=== PATIENT | female | born 1970 | race Caucasian/White ===

== ENCOUNTER 2022-12-07 14:43 | Observation (INO) ==
--- NOTE | 2022-12-07 15:01 | ED Triage Note ---
Date of Service December 07, 2022 History of Present Illness This patient was briefly evaluated while in triage. An abbreviated physical exam was performed. This patient is a 52-year-old Female who presents to the ED for evaluation of infection in legs, R>L x one month from [place] ulcers, draining on Keflex reportedly + for pseudomonas sent for admission/IV Abx Physical Exam GENERAL: NAD CARDIOVASCULAR: RRR RESPIRATORY: CTA EXT: RLE in post op shoe, unable to examine legs in triage Initial orders for labs and / or imaging were placed and patient was placed in the waiting area until a bed is available. Please see further documentation for the full ED course.
[2022-12-07 16:44] LABS: Basophils # (auto) 0.06 K/uL (0.00-0.20); Basophils % (auto) 0.7 %; Eosinophils # (auto) 0.22 K/uL (0.00-0.50); Eosinophils % (auto) 2.7 %; Hemoglobin 11.4 g/dl (12.0-16.0); Immature Granulocytes # (auto) 0.03 K/uL (0.01-0.20); Immature Granulocytes % (auto) 0.4 %; Lymphocytes % (auto) 28.9 %; Mean Corpuscular Hemoglobin 26.8 pg (25.0-34.0); Mean Corpuscular Hgb Conc 31.7 g/dL (32.0-36.0); Mean Corpuscular Volume 84.7 fL (80.0-100.0); Monocytes # (auto) 0.84 K/uL (0.11-0.59); Monocytes % (auto) 10.1 %; Neutrophils # (auto) 4.75 K/uL (1.40-6.50); Neutrophils % (auto) 57.2 %; Platelet Count 612 K/uL (130-400); RDW Standard Deviation 45.7 fL (36.4-46.3); Red Blood Count 4.25 M/uL (4.20-5.40)
[2022-12-07 17:00] LABS: Albumin Level 3.1 gm/dl (3.4-5.0); BUN Creatinine Ratio 23.8 (10-20); Bilirubin,Total 0.3 mg/dl (0.2-1.0); Calcium 9.6 mg/dl (8.6-10.3); Creatinine Clr Calc Pharmacy 112.1 ml/min; Est GFR (African American) 117.9 ml/min; Est GFR (Non-African American) 101.7 ml/min; Potassium 3.8 mmol/L (3.5-5.1); Total Protein 7.4 gm/dl (6.0-8.3)
[2022-12-07] MEDS ORDERED: CEFEPIME 2,000 MG in SYRINGE 0 ML IV STA (19:42)
--- NOTE | 2022-12-07 19:49 | Emergency Department Note ---
History of Present Illness General Chief complaint: Infection Stated complaint: INFECTION IN LEGS Time Seen by Provider: 12/07/22 19:23 Source: patient, family, RN notes reviewed, old records reviewed (I have reviewed results with from outpatient ) and other (I did talk to Janna Grissom who is her provider) Mode of arrival: ambulatory Limitations: no limitations History of Present Illness Maximum Pain Intensity: 5 This patient was sent over from her primary care doctor after she has significant infection in her legs. This been going on for about a month she tried outpatient antibiotics with Keflex she apparently had a culture last week which showed a large amount of Pseudomonas and non-MRSA staph. Her doctor feels she needs IV antibiotics and this may try to get in with wound care was hoping that she can get some wound care while she is in the hospital as well. Apparently patient did have arterial and venous duplex done in June in [place] that were unremarkable. I did talk to Janna Grissom on the phone who is her provider. The patient is a heavy smoker. She has prediabetes. She had no fe angelito chills or systemic complaints. Home Medications Medication Instructions Recorded Confirmed Type buprenorphine 8 mg-naloxone 2 mg 1 tab sublingual BID 12/07/22 12/07/22 History sublingual tablet cephalexin 500 mg capsule 500 mg PO QID 12/07/22 12/07/22 History ibuprofen 200 mg tablet (Advil) 400 mg PO Q6H PRN Pain 12/07/22 12/07/22 History multivitamin 1 tab PO DAILY 12/07/22 12/07/22 History venlafaxine 150 mg 150 mg PO BID 12/07/22 12/07/22 History capsule,extended release 24 hr Allergies Allergy/AdvReac Type Severity Reaction Status Date / Time No Known Allergies Allergy Verified 12/07/22 15:00 Past Med/Surg History Social History Smoking Status: Current every day smoker Tobacco Type: Cigarettes Hx Alcohol Use: No Hx Substance Use: No Preferred Language: Sami Communication Ability: Effective Marine Steward Required: No Beliefs That Will Affect Care: None Current Living Situation: Significant Other Feels Safe at Home: Yes Safety Concerns: Feels Safe At This Time Immunizations: Past med historyPrediabetes Social history she lives in the [place] area she is a smoker Review of Systems A total of 10 systems reviewed and were otherwise negative Physical Exam Vital Signs Vital Signs - 24 hr 12/07/22 14:58 12/07/22 17:01 12/07/22 20:40 Temperature 36.8 C Temperature Source Temporal Artery Scan Pulse Rate 111 H Pulse Rate [Right Finger] 96 H 102 H Pulse Rate from SpO2 Sensor Pulse Rhythm [Right Finger] Regular Regular Pulse Strength [Right Finger] Normal Normal Respiratory Rate 18 18 19 Respiratory Effort / Characteristics Non-Labored Non-Labored Spontaneous Respiratory Depth Normal Normal Respiratory Pattern Regular Regular Blood Pressure 106/71 Blood Pressure [Right Arm] 111/75 141/80 H Blood Pressure Mean 82 Blood Pressure Mean [Right Arm] 87 100 Blood Pressure Position [Right Arm] Sitting Pulse Oximetry 91 91 95 Oxygen Delivery Method Room Air Room Air Room Air Sepsis Recent Fever Within 48 Hours No Sepsis New/Unexplained Change in Mental Status No Sepsis Action Taken by Nursing No Action Required 12/07/22 20:42 12/07/22 20:42 12/07/22 20:50 Temperature Temperature Source Pulse Rate 119 H 107 H 102 H Pulse Rate [Right Finger] Pulse Rate from SpO2 Sensor 107 H 102 H Pulse Rhythm [Right Finger] Pulse Strength [Right Finger] Respiratory Rate 29 H 18 Respiratory Effort / Characteristics Respiratory Depth Respiratory Pattern Blood Pressure Blood Pressure [Right Arm] Blood Pressure Mean Blood Pressure Mean [Right Arm] Blood Pressure Position [Right Arm] Pulse Oximetry 95 92 Oxygen Delivery Method Sepsis Recent Fever Within 48 Hours Sepsis New/Unexplained Change in Mental Status Sepsis Action Taken by Nursing 12/07/22 21:00 12/07/22 21:00 12/07/22 21:10 Temperature Temperature Source Pulse Rate 104 H 106 H Pulse Rate [Right Finger] Pulse Rate from SpO2 Sensor 105 H 106 H Pulse Rhythm [Right Finger] Pulse Strength [Right Finger] Respiratory Rate 17 15 Respiratory Effort / Characteristics Respiratory Depth Respiratory Pattern Blood Pressure 114/75 Blood Pressure [Right Arm] Blood Pressure Mean 87 Blood Pressure Mean [Right Arm] Blood Pressure Position [Right Arm] Pulse Oximetry 91 90 Oxygen Delivery Method Sepsis Recent Fever Within 48 Hours Sepsis New/Unexplained Change in Mental Status Sepsis Action Taken by Nursing 12/07/22 21:20 12/07/22 21:30 12/07/22 21:30 Temperature Temperature Source Pulse Rate 104 H 97 H Pulse Rate [Right Finger] Pulse Rate from SpO2 Sensor 104 H 100 H Pulse Rhythm [Right Finger] Pulse Strength [Right Finger] Respiratory Rate 23 16 Respiratory Effort / Characteristics Respiratory Depth Respiratory Pattern Blood Pressure 158/97 H Blood Pressure [Right Arm] Blood Pressure Mean 132 Blood Pressure Mean [Right Arm] Blood Pressure Position [Right Arm] Pulse Oximetry 92 91 Oxygen Delivery Method Sepsis Recent Fever Within 48 Hours Sepsis New/Unexplained Change in Mental Status Sepsis Action Taken by Nursing 12/07/22 20:00 Temperature Temperature Source Pulse Rate Pulse Rate [Right Finger] Pulse Rate from SpO2 Sensor Pulse Rhythm [Right Finger] Pulse Strength [Right Finger] Respiratory Rate Respiratory Effort / Characteristics Respiratory Depth Respiratory Pattern Blood Pressure Blood Pressure [Right Arm] Blood Pressure Mean Blood Pressure Mean [Right Arm] Blood Pressure Position [Right Arm] Pulse Oximetry 90 Oxygen Delivery Method Room Air Sepsis Recent Fever Within 48 Hours Sepsis New/Unexplained Change in Mental Status Sepsis Action Taken by Nursing General: Well developed well nourished middle-age female who appears in no acute distress, breathing comfortably on room air. Normal speech HEENT: Normal cephalic atraumatic. Pupils are equal round and reactive to l ight. Extraocular movements are intact. Oropharynx is pink with moist mucous membranes. No swelling of the mouth lips or tongue. Neck: Supple with a midline trachea. No meningeal signs or stiffness, no JVD or bruits. No Stridor. Chest: Clear to auscultation bilaterally. No wheezes or rhonchi. No increased work of breathing. Heart: Regular rate and rhythm without murmurs or gallops. Abdomen: Soft nontender, nondistended without rebound guarding or rigidity. Extremities: No cyanosis clubbing or edema. No calf tenderness or assymetry. She has bandages on both her legs and I remove them she has swollen ulcerated legs throughout. She does have distal pulses intact as well as motor and s ensation Spine/Back. Non tender to palpation. No CVA tenderness Skin: Good turgor without rashes. Neurologic exam: Cranial nerves two through 12 are intact. Motor and sensation are intact and symmetrical throughout. Course Administered Medications Insulin Aspart (Insulin Aspart Per Unit Charge) 0 units SC ACHS [facility] Stop: 01/07/23 00:34 Last Admin: 12/08/22 00:59 Dose: Not Given Documented By: AN Co-signed By: KRYSTEN Discontinued Medications Cefepime HCl (Cefepime 2,000 Mg/20 Ml Vial) Confirm Administered Dose 2,000 mg .ROUTE .STK-MED ONE Stop: 12/07/22 20:53 Last Admin: 12/07/22 20:57 Dose: Not Given Documented By: YA Cefepime HCl 2,000 mg/ Syringe 20 mls @ 5 mls/min IV NOW STA; Protocol Stop: 12/07/22 19:45 Last Admin: 12/07/22 20:54 Dose: 5 mls/min Documented By: YA Albumin Human (Albumin 25%) 25 gm in 100 mls @ 50 mls/hr IV ONE ONE Stop: 12/07/22 23:34 Last Infusion: 12/08/22 00:49 Dose: 0 mls/hr Documented By: Admin: 12/07/22 22:41 Dose: 50 mls/hr Documented By: BRAYDEN Ioversol (Optiray 320 100ml) 89 ml IV ONCE ONE Stop: 12/07/22 22:15 Last Admin: 12/07/22 22:15 Dose: 89 ml Documented By: JOVITA Medical Decision Making Differential Diagnosis Cellulitis, sepsis, wound infections, electrolyte or metabolic abnormality, vascular compromise Medical Records Attestation: I reviewed the patient's medical records. Home Medications Current Medication List: was personally reviewed by me Laboratory Data Attestation: I reviewed the patient's lab results. 12/07/22 16:03 12/07/22 16:03 Lab Results 12/07/22 12/07/22 12/07/22 Range/Units 16:03 16:03 16:03 WBC 8.30 (4.8-10.8) K/ul RBC 4.25 (4.20-5.40) M/uL Hgb 11.4 L (12.0-16.0) g/dl Hct 36.0 L (37.0-47.0) % MCV 84.7 (80.0-100.0) fL MCH 26.8 (25.0-34.0) pg MCHC 31.7 L (32.0-36.0) g/dL RDW Std Deviation 45.7 (36.4-46.3) fL RDW Coeff of Kirill 15.0 H (11.5-14.5) % Plt Count 612 H (130-400) K/uL MPV 9.0 L (9.4-12.4) fL Immature Gran % (Auto) 0.4 % Neut % (Auto) 57.2 % Lymph % (Auto) 28.9 % Mccormick % (Auto) 10.1 % Eos % (Auto) 2.7 % Baso % (Auto) 0.7 % Neut # (Auto) 4.75 (1.40-6.50) K/uL Lymph # (Auto) 2.40 (1.20-3.40) K/uL Mccormick # (Auto) 0.84 H (0.11-0.59) K/uL Eos # (Auto) 0.22 (0.00-0.50) K/uL Baso # (Auto) 0.06 (0.00-0.20) K/uL Immature Gran # (Auto) 0.03 (0.01-0.20) K/uL Sodium 136 (136-145) mmol/L Potassium 3.8 (3.5-5.1) mmol/L Chloride 102 (98-107) mmol/L Carbon Dioxide 31 (21-32) mmol/L Anion Gap 3 (3-11) BUN 15 (6-23) mg/dl Creatinine 0.63 (0.6-1.2) mg/dl Est Cr Clr Drug Dosing 112.1 ml/min Est GFR ( Amer) 117.9 ml/min Est GFR (Non-Af Amer) 101.7 ml/min BUN/Creatinine Ratio 23.8 H (10-20) Glucose 169 H (70-99(Fasting)) mg/dl Estimat Average Glucose mg/dl Hemoglobin A1c (4.5-5.6) % Lactate 1.7 (0.4-2.0) mmol/L Calcium 9.6 (8.6-10.3) mg/dl Magnesium 2.0 (1.7-2.4) mg/dl Total Bilirubin 0.3 (0.2-1.0) mg/dl Direct Bilirubin 0.0 (0-0.2) mg/dl AST 15 (13-39) U/L ALT 18 (7-52) U/L Alkaline Phosphatase 95 (34-104) U/L Total Protein 7.4 (6.0-8.3) gm/dl Albumin 3.1 L (3.4-5.0) gm/dl Procalcitonin (0-0.5) ng/ml TSH 0.890 (0.300-4.500) uIu/ml 12/07/22 12/07/22 Range/Units 16:03 16:03 WBC (4.8-10.8) K/ul RBC (4.20-5.40) M/uL Hgb (12.0-16.0) g/dl Hct (37.0-47.0) % MCV (80.0-100.0) fL MCH (25.0-34.0) pg MCHC (32.0-36.0) g/dL RDW Std Deviation (36.4-46.3) fL RDW Coeff of Kirill (11.5-14.5) % Plt Count (130-400) K/uL MPV (9.4-12.4) fL Immature Gran % (Auto) % Neut % (Auto) % Lymph % (Auto) % Mccormick % (Auto) % Eos % (Auto) % Baso % (Auto) % Neut # (Auto) (1.40-6.50) K/uL Lymph # (Auto) (1.20-3.40) K/uL Mccormick # (Auto) (0.11-0.59) K/uL Eos # (Auto) (0.00-0.50) K/uL Baso # (Auto) (0.00-0.20) K/uL Immature Gran # (Auto) (0.01-0.20) K/uL Sodium (136-145) mmol/L Potassium (3.5-5.1) mmol/L Chloride (98-107) mmol/L Carbon Dioxide (21-32) mmol/L Anion Gap (3-11) BUN (6-23) mg/dl Creatinine (0.6-1.2) mg/dl Est Cr Clr Drug Dosing ml/min Est GFR ( Amer) ml/min Est GFR (Non-Af Amer) ml/min BUN/Creatinine Ratio (10-20) Glucose (70-99(Fasting)) mg/dl Estimat Average Glucose 143 mg/dl Hemoglobin A1c 6.6 H (4.5-5.6) % Lactate (0.4-2.0) mmol/L Calcium (8.6-10.3) mg/dl Magnesium (1.7-2.4) mg/dl Total Bilirubin (0.2-1.0) mg/dl Direct Bilirubin (0-0.2) mg/dl AST (13-39) U/L ALT (7-52) U/L Alkaline Phosphatase (34-104) U/L Total Protein (6.0-8.3) gm/dl Albumin (3.4-5.0) gm/dl Procalcitonin 0.41 (0-0.5) ng/ml TSH (0.300-4.500) uIu/ml Imaging Data Radiologist's Impression: Foot CT 12/07/22 21:22 Exam(s): CT RIGHT FOOT With Contrast IV Amt: 89 ml optiray 320 EXAM: CT Right Lower Extremity With Intravenous Contrast, Foot CLINICAL HISTORY: Reason for exam: foot swelling. TECHNIQUE: Axial computed tomography images of the right foot with intravenous contrast. Automated exposure control was utilized for the study. A dose lowering technique was utilized adhering to the principles of ALARA. CONTRAST: Patient received 89 ml optiray 320 of IV contrast COMPARISON: No relevant prior studies available. FINDINGS: Bones/joints: Unremarkable. No CT evidence of osteomyelitis. No acute fracture or subluxation. Soft tissues: No skin ulceration along the dorsum of the foot and about the ankle. Circumferential subcutaneous edema and skin thickening. Findings are concerning for cellulitis. No radiopaque foreign body. No subcutaneous air, fluid collection, abscess, or deep intramuscular infection. Other findings: Severe demineralization. IMPRESSION: 1. No skin ulceration along the dorsum of the foot and about the ankle. Circumferential subcutaneous edema and skin thickening. Findings are concerning for cellulitis. 2. No subcutaneous air, fluid collection, abscess, or deep intramuscular infection. 3. No CT evidence of osteomyelitis. Electronically signed by: Kory Adams MD 12/07/22 23:[address] 12/07/22 21:22 Exam(s): CT EXTREMITY LEFT LOWER With Contrast IV Amt: 89 ml optiray 320 EXAM: CT Left Lower Extremity With Intravenous Contrast CLINICAL HISTORY: Reason for exam: recurrent leg infx. TECHNIQUE: Axial computed tomography images of the left lower extremity with intravenous contrast. Automated exposure control was utilized for the study. A dose lowering technique was utilized adhering to the principles of ALARA. CONTRAST: Patient received 89 ml optiray 320 of IV contrast COMPARISON: No relevant prior studies available. FINDINGS: Bones/joints: Unremarkable. No acute fracture. No dislocation. No CT evidence of osteomyelitis. Soft tissues: Circumferential skin ulceration, skin thickening, and subcutaneous edema about the calf, extending to the ankle, consistent with cellulitis. Correlate with physical exam. No deep intramuscular infection. No subcutaneous air. Other findings: No fluid collection or abscess. IMPRESSION: 1. Circumferential skin ulceration, skin thickening, and subcutaneous edema about the calf, extending to the ankle, consistent with cellulitis. Correlate with physical exam. 2. No deep intramuscular infection. 3. No CT evidence of osteomyelitis. 4. No fluid collection or abscess. Electronically signed by: Kory Adams MD 12/07/22 23:[address] 12/07/22 21:22 Exam(s): CT EXTREMITY RIGHT LOWER With Contrast IV Amt: 89 ml optiray 320 EXAM: CT Right Lower Extremity With Intravenous Contrast CLINICAL HISTORY: Reason for exam: recurrent leg infx. TECHNIQUE: Axial computed tomography images of the right lower extremity with intravenous contrast. Automated exposure control was utilized for the study. A dose lowering technique was utilized adhering to the principles of ALARA. CONTRAST: Patient received 89 ml optiray 320 of IV contrast COMPARISON: No relevant prior studies available. FINDINGS: Bones/joints: Unremarkable. No acute fracture. No dislocation. No CT evidence of osteomyelitis. Soft tissues: Circumferential skin ulceration, skin thickening, and subcutaneous edema about the calf, extending to the ankle, consistent with cellulitis. Correlate with physical exam. No deep intramuscular infection. No subcutaneous air. Other findings: No fluid collection or abscess. IMPRESSION: 1. Circumferential skin ulceration, skin thickening, and subcutaneous edema about the calf, extending to the ankle, consistent with cellulitis. Correlate with physical exam. 2. No deep intramuscular infection. 3. No CT evidence of osteomyelitis. 4. No fluid collection or abscess. Electronically signed by: Kory Adams MD 12/07/22 23:01 PM MDM Narrative This patient comes in as described above. I did see her out in triage as we were very busy. The patient was sent over from primary care provider who I talked to on the phone, Janna Grissom. She feels she needs to be admitted for IV antibiotics due to wound culture coming back with large Pseudomonas as well as non-MRSA staph. Additionally patient is not been getting better and they been able to get wound care. She has a normal white count or lactic acid not elevated she does have a mildly elevated blood sugar she is noticing electrolyte or metabolic abnormalities. I did discuss the case in consultation with Daisy or our pharmacist who recommends IV cefepime and either IV Vanco or daptomycin. I ordered the cefepime and will further discuss with the hospitalist. I did discuss case with Dr. White who will be admitting the patient for IV antibiotics and wound care and further evaluation. Continuous cardiac monitoring: An order was placed in EMR for continuous cardiac monitoring: Pulm evaluation patient was noted to be in normal sinus rhythm rate of 90 Impression & Plan Bilateral cellulitis of lower leg, Bilateral leg pain Discharge Plan Visit Data Chief Complaint: Infection Stated Complaint: INFECTION IN LEGS ED Provider: Hernán Silva Discharge Problem: Bilateral cellulitis of lower leg, Bilateral leg pain Discharge Instructions Interventions: ED Discharge Assessment Last Done: 12/08/22 00:24
[2022-12-07] MEDS ORDERED: CEFEPIME 2,000 MG/20 ML VIAL ONE (20:52)
--- NOTE | 2022-12-07 21:31 | History & Physical Report ---
Date of Service December 07, 2022 Assessment & Plan (1) Bilateral cellulitis of lower leg: Plan: Recurrent bilateral LE cellulitis , right greater than the left Concomitant right foot involvement hx chronic leg ulcers with infection Rule out osteomyelitis given recurrent infections Rule out DVT Pseudomonas on recent outpatient CS No sepsis for now Rule out DVT New diagnosis of DM 2, hemoglobin A1c of 6.6 chronic anemia (unknown baseline as per patient) anxiety/mood disorder, stable on regimen chronic pain on Suboxone ongoing tobacco abuse Medical telemetry given tachycardia Baseline EKG CS, Ciprofloxacin Wound care consult MRI both lower extremities and right foot to rule out osteomyelitis LE venous Dopplers rule out DVT Anemia work-up ISS BG goal 1 10-1 40, DM education Nicotine patch as needed DVT prophylaxis. Lovenox subcu Full code Text document was generated using [employer] voice recognition software. It may contain grammatical or spelling errors. Kindly contact undersigned for clarification of any documentation item in que stion. ADDENDUM (12/08): LE venous Dopplers results noted 1. Positive for DVT in the RIGHT popliteal veins. 2. No LEFT lower extremity DVT. IV heparin for now History of Present Illness Chief Complaint: Leg wound infection Primary Care Provider: Dr. Prakash History obtained from patient and records. Medical history significant for chronic leg ulcers, borderline diabetes as per patient, chronic anemia (unknown baseline as per patient), anxiety/mood disorder, chronic pain on Suboxone, ongoing tobacco abuse. Patient admitted at [facility] last year for bilateral LE cellulitis. right greater than the left. Right foot also involved as per patient. Patient signed out AGAINST MEDICAL ADVICE. [facility] ER visit for recurrent June 2022 right foot infection. No stenosis on R LE arterial Dopplers. No DVT on RLE venous Dopplers. Patient given IM ceftriaxone and discharged on unrecalled antibiotic course. Last month, patient had recurrence of RLE swelling followed by foul-smelling wound drainage and subsequent right foot swelling. LLE swelling noted 2 weeks later. Denies chest pain, SOB, or fluid retention. Patient saw new PCP last week after not seeing a family doctor for 2 years. Bilateral redness and open ulcerations with yellow drainage on both lower legs noted right greater than the left, Outpatient wound care referral contemplated. Wound cultures obtained Outpatient Keflex course prescribed without improvement as per patient. Wound CS later resulted in Pseudomonas and MSSA. Patient directed to ER for evaluation. IV cefepime administered at the ER. Medical History as above Surgical History : Back surgeries Family History : Colon cancer, hyperlipidemia Personal/Social history : 1 pack daily, rare EtOH intake, disabled Allergies Allergy/AdvReac Type Severity Reaction Status Date / Time No Known Allergies Allergy Verified 12/07/22 15:00 Home Medications Medication Instructions Recorded Confirmed Type buprenorphine 8 mg-naloxone 2 mg 1 tab sublingual BID 12/07/22 12/07/22 History sublingual tablet cephalexin 500 mg capsule 500 mg PO QID 12/07/22 12/07/22 History ibuprofen 200 mg tablet (Advil) 400 mg PO Q6H PRN Pain 12/07/22 12/07/22 History multivitamin 1 tab PO DAILY 12/07/22 12/07/22 History venlafaxine 150 mg 150 mg PO BID 12/07/22 12/07/22 History capsule,extended release 24 hr Past Med/Surg History Social History Smoking Status: Current every day smoker Tobacco Type: Cigarettes Hx Alcohol Use: No Hx Substance Use: No Preferred Language: Azeri Communication Ability: Effective Wood Hacker Required: No Beliefs That Will Affect Care: None Current Living Situation: Significant Other Feels Safe at Home: Yes Safety Concerns: Feels Safe At This Time Review of Systems Review of Systems: As per HPI, all other systems reviewed and negative Physical Exam Physical Exam: GENERAL: Comfortable, obese, apathetic, looks older than stated age, no respiratory distress SKIN: Pallor , warm HEENT: Pale palpebral conjunctivae, no ptosis, dry buccal mucosa NECK : Supple, short neck, no tenderness CHEST : CTA, no tenderness HEART : Tachycardic, no obvious murmurs ABDOMEN: Some distention, nontender EXTREMITIES : Dressings over both lower extremities, LE tenderness, no other conspicuous deformities noted NEUROLOGIC : Coherent, no facial asymmetry, no other gross focality Results & Data Results & Data Vital Signs (Past 12 Hours) Vital Signs Temp Pulse Pulse Resp BP BP Pulse Ox 12/07/22 20:42 119 H 12/07/22 20:40 102 H 19 141/80 H 95 12/07/22 17:01 96 H 18 111/75 91 12/07/22 14:58 36.8 C 111 H 18 106/71 91 O2 Del Method 12/07/22 20:42 10/23/23 20:40 Room Air 12/07/22 17:01 Room Air 12/07/22 14:58 Room Air Laboratory Results Laboratory Results WBC 8.30 K/ul (4.8-10.8) 12/07/22 16:03 RBC 4.25 M/uL (4.20-5.40) 12/07/22 16:03 Hgb 11.4 g/dl (12.0-16.0) L 12/07/22 16:03 Hct 36.0 % (37.0-47.0) L 12/07/22 16:03 MCV 84.7 fL (80.0-100.0) 12/07/22 16:03 MCH 26.8 pg (25.0-34.0) 12/07/22 16:03 MCHC 31.7 g/dL (32.0-36.0) L 12/07/22 16:03 RDW Std Deviation 45.7 fL (36.4-46.3) 12/07/22 16:03 RDW Coeff of Kirill 15.0 % (11.5-14.5) H 12/07/22 16:03 Plt Count 612 K/uL (130-400) H 12/07/22 16:03 MPV 9.0 fL (9.4-12.4) L 12/07/22 16:03 Immature Gran % (Auto) 0.4 % 12/07/22 16:03 Neut % (Auto) 57.2 % 12/07/22 16:03 Lymph % (Auto) 28.9 % 12/07/22 16:03 Mellette % (Auto) 10.1 % 12/07/22 16:03 Eos % (Auto) 2.7 % 12/07/22 16:03 Baso % (Auto) 0.7 % 12/07/22 16:03 Neut # (Auto) 4.75 K/uL (1.40-6.50) 12/07/22 16:03 Lymph # (Auto) 2.40 K/uL (1.20-3.40) 12/07/22 16:03 Mellette # (Auto) 0.84 K/uL (0.11-0.59) H 12/07/22 16:03 Eos # (Auto) 0.22 K/uL (0.00-0.50) 12/07/22 16:03 Baso # (Auto) 0.06 K/uL (0.00-0.20) 12/07/22 16:03 Immature Gran # (Auto) 0.03 K/uL (0.01-0.20) 12/07/22 16:03 Sodium 136 mmol/L (136-145) 12/07/22 16:03 Potassium 3.8 mmol/L (3.5-5.1) 12/07/22 16:03 Chloride 102 mmol/L (98-107) 12/07/22 16:03 Carbon Dioxide 31 mmol/L (21-32) 12/07/22 16:03 Anion Gap 3 (3-11) 12/07/22 16:03 BUN 15 mg/dl (6-23) 12/07/22 16:03 Creatinine 0.63 mg/dl (0.6-1.2) 12/07/22 16:03 Est Cr Clr Drug Dosing 112.1 ml/min 12/07/22 16:03 Est GFR ( Amer) 117.9 ml/min 12/07/22 16:03 Est GFR (Non-Af Amer) 101.7 ml/min 12/07/22 16:03 BUN/Creatinine Ratio 23.8 (10-20) H 12/07/22 16:03 Glucose 169 mg/dl (70-99(Fasting)) H 12/07/22 16:03 Lactate 1.7 mmol/L (0.4-2.0) 12/07/22 16:03 Calcium 9.6 mg/dl (8.6-10.3) 12/07/22 16:03 Magnesium 2.0 mg/dl (1.7-2.4) 12/07/22 16:03 Total Bilirubin 0.3 mg/dl (0.2-1.0) 12/07/22 16:03 Direct Bilirubin 0.0 mg/dl (0-0.2) 12/07/22 16:03 AST 15 U/L (13-39) 12/07/22 16:03 ALT 18 U/L (7-52) 12/07/22 16:03 Alkaline Phosphatase 95 U/L (34-104) 12/07/22 16:03 Total Protein 7.4 gm/dl (6.0-8.3) 12/07/22 16:03 Albumin 3.1 gm/dl (3.4-5.0) L 12/07/22 16:03 Procalcitonin 0.41 ng/ml (0-0.5) 12/07/22 16:03 Diagnostic Findings Chest x-ray as per my interpretation cardiomegaly
[2022-12-07] MEDS ORDERED: PROMETHAZINE 12.5 MG/50.5 ML BAG IV PRN (21:35)
[2022-12-07] MEDS ORDERED: ACETAMINOPHEN 325 MG TAB PO PRN (21:35)
[2022-12-07] MEDS ORDERED: hydrOXYzine HCl 10 MG TAB PO PRN (21:35)
[2022-12-07] MEDS ORDERED: ALBUMIN 25% 25 GM/100 ML VIAL IV ONE (21:35)
[2022-12-07 22:01] LABS: Thyroid Stimulating Hormone 0.89 uIu/ml (0.300-4.500)
[2022-12-07] MEDS ORDERED: OPTIRAY 320 100ml IV ONE (22:14)
[2022-12-07 22:31] LABS: Estimated Average Glucose 143 mg/dl; Hemoglobin A1C 6.6 % (4.5-5.6)
--- NOTE | 2022-12-07 23:02 | CT Scan Report ---
Exam(s): CT EXTREMITY RIGHT LOWER With Contrast IV Amt: 89 ml optiray 320 EXAM: CT Right Lower Extremity With Intravenous Contrast CLINICAL HISTORY: Reason for exam: recurrent leg infx. TECHNIQUE: Axial computed tomography images of the right lower extremity with intravenous contrast. Automated exposure control was utilized for the study. A dose lowering technique was utilized adhering to the principles of ALARA. CONTRAST: Patient received 89 ml optiray 320 of IV contrast COMPARISON: No relevant prior studies available. FINDINGS: Bones/joints: Unremarkable. No acute fracture. No dislocation. No CT evidence of osteomyelitis. Soft tissues: Circumferential skin ulceration, skin thickening, and subcutaneous edema about the calf, extending to the ankle, consistent with cellulitis. Correlate with physical exam. No deep intramuscular infection. No subcutaneous air. Other findings: No fluid collection or abscess. IMPRESSION: 1. Circumferential skin ulceration, skin thickening, and subcutaneous edema about the calf, extending to the ankle, consistent with cellulitis. Correlate with physical exam. 2. No deep intramuscular infection. 3. No CT evidence of osteomyelitis. 4. No fluid collection or abscess. Electronically signed by: Kory Adams MD 12/07/22 23:01 PM
--- NOTE | 2022-12-07 23:02 | CT Scan Report ---
Exam(s): CT EXTREMITY LEFT LOWER With Contrast IV Amt: 89 ml optiray 320 EXAM: CT Left Lower Extremity With Intravenous Contrast CLINICAL HISTORY: Reason for exam: recurrent leg infx. TECHNIQUE: Axial computed tomography images of the left lower extremity with intravenous contrast. Automated exposure control was utilized for the study. A dose lowering technique was utilized adhering to the principles of ALARA. CONTRAST: Patient received 89 ml optiray 320 of IV contrast COMPARISON: No relevant prior studies available. FINDINGS: Bones/joints: Unremarkable. No acute fracture. No dislocation. No CT evidence of osteomyelitis. Soft tissues: Circumferential skin ulceration, skin thickening, and subcutaneous edema about the calf, extending to the ankle, consistent with cellulitis. Correlate with physical exam. No deep intramuscular infection. No subcutaneous air. Other findings: No fluid collection or abscess. IMPRESSION: 1. Circumferential skin ulceration, skin thickening, and subcutaneous edema about the calf, extending to the ankle, consistent with cellulitis. Correlate with physical exam. 2. No deep intramuscular infection. 3. No CT evidence of osteomyelitis. 4. No fluid collection or abscess. Electronically signed by: Kory Adams MD 12/07/22 23:01 PM
--- NOTE | 2022-12-07 23:04 | CT Scan Report ---
Exam(s): CT RIGHT FOOT With Contrast IV Amt: 89 ml optiray 320 EXAM: CT Right Lower Extremity With Intravenous Contrast, Foot CLINICAL HISTORY: Reason for exam: foot swelling. TECHNIQUE: Axial computed tomography images of the right foot with intravenous contrast. Automated exposure control was utilized for the study. A dose lowering technique was utilized adhering to the principles of ALARA. CONTRAST: Patient received 89 ml optiray 320 of IV contrast COMPARISON: No relevant prior studies available. FINDINGS: Bones/joints: Unremarkable. No CT evidence of osteomyelitis. No acute fracture or subluxation. Soft tissues: No skin ulceration along the dorsum of the foot and about the ankle. Circumferential subcutaneous edema and skin thickening. Findings are concerning for cellulitis. No radiopaque foreign body. No subcutaneous air, fluid collection, abscess, or deep intramuscular infection. Other findings: Severe demineralization. IMPRESSION: 1. No skin ulceration along the dorsum of the foot and about the ankle. Circumferential subcutaneous edema and skin thickening. Findings are concerning for cellulitis. 2. No subcutaneous air, fluid collection, abscess, or deep intramuscular infection. 3. No CT evidence of osteomyelitis. Electronically signed by: Kory Adams MD 12/07/22 23:04 PM
--- NOTE | 2022-12-08 00:20 | Ultrasound Report ---
Exam(s): US VENOUS BILATERAL LOWER EXTREMITIES EXAM: US Duplex Bilateral Lower Extremities Veins CLINICAL HISTORY: Reason for exam: leg swelling. TECHNIQUE: Real-time duplex ultrasound scan of the bilateral lower extremity veins integrating B-mode two-dimensional vascular structure, Doppler spectral analysis, color flow Doppler imaging and compression. COMPARISON: No relevant prior studies available. FINDINGS: Limitations: Evaluation of the calf veins are limited due to bandages. Right deep veins: Positive for DVT in the RIGHT popliteal veins. Right superficial veins: Unremarkable. No thrombus in the visualized right great saphenous vein. Left deep veins: Unremarkable. No LEFT lower extremity DVT. Left superficial veins: Unremarkable. No thrombus in the visualized left great saphenous vein. Soft tissues: No acute findings. No popliteal cyst. Lymph nodes: RIGHT inguinal lymph node measures 5.0 x 4.5 cm. IMPRESSION: 1. Positive for DVT in the RIGHT popliteal veins. 2. No LEFT lower extremity DVT. Electronically signed by: Kory Adams MD 12/08/22 00:19 AM
[2022-12-08] MEDS ORDERED: DEXTROSE 50% 50 ML SYRINGE IV PRN (00:30)
[2022-12-08] MEDS ORDERED: GLUCOSE 10 TAB/TUBE PO PRN (00:30)
[2022-12-08] MEDS ORDERED: GLUCAGON FOR INJ 1 MG VIAL SQ PRN (00:30)
[2022-12-08] MEDS ORDERED: GLUCOSE 40% GEL 15 GM TUBE PO PRN (00:30)
[2022-12-08] MEDS ORDERED: CARBOHYDRATES FOR HYPOGLYCEMIA PO PRN (00:30)
[2022-12-08] MEDS: INSULIN ASPART PER UNIT CHARGE SC SCH ×5 (00:59→21:31)
[2022-12-08 05:11] LABS: Appearance Urine Clear (Clear); Bilirubin Urine Negative (Negative); Blood Urine Negative (Negative); Color Urine Yellow; Glucose Urine UA Negative (Negative); Ketones Urine Negative (Negative); Leukocyte Esterase Urine Negative (Negative); Nitrite Urine Negative (Negative); Protein Urine Negative (Negative); Specific Gravity Urine 1.037 (1.000-1.030); Urobilinogen Urine Negative (Negative); pH Urine 5.5 (4.5-7.5)
[2022-12-08] MEDS ORDERED: Heparin IV Adult Wt-Based Low-Dose *NO* Bolus Protocol IV STA (05:15)
[2022-12-08 05:30] LABS: Amphetamines+Metham, Urine Neg (Neg); Barbiturates, Urine Neg (Neg); Benzodiazepine, Urine Neg (Neg); Cocaine, Urine Neg (Neg); MDMA (Ecstacy), Urine Neg (Neg); Marijuana, Urine Neg (Neg); Methadone, Urine Neg (Neg); Opiate, Urine Neg (Neg); Phencyclidine, Urine Neg (Neg)
[2022-12-08] MEDS: CEFEPIME 2,000 MG in SYRINGE 0 ML IV SCH ×3 (05:44→21:41)
[2022-12-08] MEDS: HEPARIN SODIUM/DEXTROSE 25,000 UNITS/500 ML BAG IV SCH (05:44)
[2022-12-08 05:56] LABS: Basophils # (auto) 0.06 K/uL (0.00-0.20); Basophils % (auto) 0.9 %; Eosinophils # (auto) 0.22 K/uL (0.00-0.50); Eosinophils % (auto) 3.2 %; Hematocrit (blood only) 30.8 % (37.0-47.0); Hemoglobin 9.7 g/dl (12.0-16.0); Immature Granulocytes # (auto) 0.03 K/uL (0.01-0.20); Immature Granulocytes % (auto) 0.4 %; Lymphocytes # (auto) 3.04 K/uL (1.20-3.40); Lymphocytes % (auto) 44.5 %; Mean Corpuscular Hemoglobin 27.2 pg (25.0-34.0); Mean Corpuscular Hgb Conc 31.5 g/dL (32.0-36.0); Mean Corpuscular Volume 86.5 fL (80.0-100.0); Mean Platelet Volume 8.9 fL (9.4-12.4); Monocytes # (auto) 0.84 K/uL (0.11-0.59); Monocytes % (auto) 12.3 %; Neutrophils # (auto) 2.64 K/uL (1.40-6.50); Neutrophils % (auto) 38.7 %; Platelet Count 531 K/uL (130-400); RDW Coefficient of Variation 14.8 % (11.5-14.5); RDW Standard Deviation 45.8 fL (36.4-46.3); Red Blood Count 3.56 M/uL (4.20-5.40); White Blood Count 6.83 K/ul (4.8-10.8)
[2022-12-08 06:13] LABS: Calcium 9.2 mg/dl (8.6-10.3); Creatinine Clr Calc Pharmacy 121.8 ml/min; Est GFR (African American) 121.1 ml/min; Est GFR (Non-African American) 104.5 ml/min
[2022-12-08 06:22] LABS: Partial Thromboplastin Ratio 1.1; Partial Thromboplastin Time 30.8 Seconds (21.0-31.0)
--- NOTE | 2022-12-08 07:46 | XRay Report ---
XR chest 1V portable CLINICAL HISTORY: con leg swelling TECHNIQUE: Single frontal radiograph of the chest was obtained. Comparison: None available at the time of this dictation. FINDINGS: No lines and tubes are seen. Cardiomegaly is noted. The lungs are clear. No evidence of pleural effus ion or pneumothorax. IMPRESSION: No acute chest disease. Cardiomegaly is noted. ACT 112: Negative or not required by law. Electronically signed by: Luis Donohue M.D. 12/08/2022 7:45 AM
[2022-12-08] MEDS ORDERED: ALBUMIN 25% 25 GM/100 ML VIAL IV SCH (08:00)
[2022-12-08] MEDS: VENLAFAXINE HCL XR 150 MG CAPXR PO SCH ×2 (08:28→21:41)
[2022-12-08] MEDS: CIPROFLOXACIN / D5W 400 MG/200 ML BAG IV SCH ×2 (08:28→21:50)
[2022-12-08] MEDS: MULTIVITAMIN TAB PO SCH (08:28)
[2022-12-08] MEDS: BUPRENORPHINE/NALOXONE 8/2 MG TAB SL SCH ×2 (08:28→21:40)
[2022-12-08] MEDS ORDERED: LANTUS PER UNIT CHARGE SQ SCH (09:00)
[2022-12-08] MEDS ORDERED: Nursing to Pharmacy Communication SCH (09:00)
[2022-12-08] MEDS: ALBUMIN 25% 25 GM/100 ML VIAL IV SCH ×2 (10:14→18:07)
[2022-12-08 12:34] LABS: Partial Thromboplastin Ratio 1.1; Partial Thromboplastin Time 29.9 Seconds (21.0-31.0)
[2022-12-08] MEDS ORDERED: HEPARIN SOD (PORCINE) 1000 UNIT/ML IV ONE (13:29)
--- NOTE | 2022-12-08 17:25 | Hospitalist Progress Note ---
Date of Service December 08, 2022 Assessment & Plan (1) Bilateral cellulitis of lower leg: Plan: Recurrent bilateral LE cellulitis , right greater than the left Concomitant right foot involvement hx chronic leg ulcers with infection for a long time Never been to wound clinic and saw PCP last week and was started on oral antibiotic with Keflex and did not show any improvement Condition has been getting worse Rule out osteomyelitis given recurrent infections-MRI both lower extremities and right foot to rule out osteomyelitis Pseudomonas on recent outpatient CS CS, Ciprofloxacin Wound care consult No sepsis for now Started on intravenous cefepime Wound care consulted DVT right popliteal veins Started on intravenous heparin Will need anticoagulation for at least 3 months New diagnosis of DM 2, hemoglobin A1c of 6.6 ISS BG goal 1 10-1 40, DM education Chronic anemia (unknown baseline as per patient) Anemia work-up Anxiety/mood disorder, stable on regimen Chronic pain on Suboxone Ongoing tobacco abuse Nicotine patch as needed DVT prophylaxis. Lovenox subcu Full code Admission and Anticipated Discharge Date Admission Date: December 07, 2022 Subjective 12/08/2022 The patient was seen and examined in emergency room She has been complaining of pain and drainage from the leg wounds associated with leg pain Noted to have DVT involving the popliteal veins She has been feeling better since admission Review of Systems Review of Systems: All systems reviewed and are unremarkable except as noted below Physical Exam Physical Exam: Lying in bed comfortably Constitutional: well developed, well nourished, + ill appearing and + obese Eyes: PERRL, conjunctivae normal, anicteric sclerae ENMT: external ear and nose normal, oropharynx normal Neck: trachea midline, no thyromegaly Respiratory: no respiratory distress Auscultation: lungs clear to auscultation bilaterally Cardiovascular: Rate/Rhythm: regular rate and regular rhythm; not tachycardic Heart Sounds: normal S1 and normal S2; no murmur Extremities: + edema (Both the legs are bandaged) Gastrointestinal (Abdomen): Inspection/Auscultation: normal bowel sounds; abdomen not distended Percussion/Palpation: abdomen soft; abdomen nontender Musculoskeletal: Bilateral leg pain Neurologic: normal touch/pain/proprioception and moves all extremities; no focal motor deficits Lymphatic: no cervical or axillary lymphadenopathy Results & Data Results & Data Vital Signs (Past 12 Hours) Vital Signs Temp Pulse Pulse Resp BP Pulse Ox O2 Del Method 12/08/22 17:01 Nasal Cannula 12/08/22 16:03 84 12/08/22 16:02 36.5 C 82 16 100/64 95 Nasal Cannula 12/08/22 15:11 83 12/08/22 13:57 80 15 101/60 92 Nasal Cannula 12/08/22 11:21 81 16 119/71 95 Nasal Cannula 12/08/22 07:03 88 16 115/83 95 Room Air O2 Flow Rate 12/08/22 17:01 2 12/08/22 16:03 12/08/22 16:02 2 12/08/22 15:11 12/08/22 13:57 2 12/08/22 11:21 2 12/08/22 07:03 Laboratory Results Short CBC 12/08/22 Range/Units 05:23 WBC 6.83 (4.8-10.8) K/ul Hgb 9.7 L (12.0-16.0) g/dl Hct 30.8 L (37.0-47.0) % Plt Count 531 H (130-400) K/uL BMP 12/08/22 05:23 Sodium 138 Potassium 4.0 Chloride 104 Carbon Dioxide 30 BUN 11 Creatinine 0.58 L Glucose 90 Calcium 9.2 Urine 12/08/22 Range/Units 04:21 Urine Color Yellow Urine Appearance Clear (Clear) Urine pH 5.5 (4.5-7.5) Ur Specific [place] 1.037 H (1.000-1.030) Urine Protein Negative (Negative) Urine Glucose (UA) Negative (Negative) Medications Administered Current Inpatient Medications Acetaminophen (Acetaminophen 325 Mg Tab) 650 mg PO QID PRN PRN Reason: pain/fever Stop: 01/06/23 21:34 Buprenorphine/Naloxone (Buprenorphine/Naloxone 8/2 Mg Tab) 1 tab SL BID [facility] Stop: 01/07/23 08:59 Last Admin: 12/08/22 08:28 Dose: 1 tab Dextrose (Dextrose 50% 50 Ml Syringe) 25 - 50 ml IV UD PRN; Protocol PRN Reason: Hypoglycemia Protocol Stop: 01/07/23 00:29 Glucagon (Glucagon For Inj 1 Mg Vial) 1 mg SQ UD PRN; Protocol PRN Reason: Hypoglycemia Protocol Stop: 01/07/23 00:29 Glucose (Glucose 10 Tab/Tube) 4 - 8 tab PO UD PRN; Protocol PRN Reason: Hypoglycemia Treatment Stop: 01/07/23 00:29 Glucose (Glucose 40% Gel 15 Gm Tube) 15 - 30 gm PO UD PRN; Protocol PRN Reason: Hypoglycemia Protocol Stop: 01/07/23 00:29 Hydroxyzine HCl (Hydroxyzine Hcl 10 Mg Tab) 10 mg PO QID PRN PRN Reason: Anxiety Stop: 01/06/23 21:34 Promethazine HCl (Phenergan) 12.5 mg in 50.5 mls @ 202 mls/hr IV Q6H PRN PRN Reason: Nausea And Vomiting Stop: 01/06/23 21:34 Ciprofloxacin (Cipro / D5w) 400 mg in 200 mls @ 100 mls/hr IV Q12H [facility]; Protocol Stop: 12/15/22 08:59 Last Infusion: 12/08/22 09:59 Dose: Infused Cefepime HCl 2,000 mg/ Syringe 20 mls @ 5 mls/min IV Q8H [facility]; Protocol Stop: 12/15/22 05:59 Last Admin: 12/08/22 15:09 Dose: 5 mls/min Heparin Sodium/Dextrose (Heparin Sodium/Dextrose) 25,000 units in 500 mls @ 21 mls/hr IV .[id number] [facility]; Protocol Stop: 01/07/23 05:29 Last Titration: 12/08/22 13:23 Dose: 1,050 units/hr, 21 mls/hr Albumin Human (Albumin 25%) 25 gm in 100 mls @ 50 mls/hr IV Q8H [facility] Stop: 12/09/22 08:29 Last Infusion: 12/08/22 13:23 Dose: Infused Insulin Aspart (Insulin Aspart Per Unit Charge) 0 units SC ACHS [facility] Stop: 01/07/23 00:34 Last Admin: 12/08/22 13:39 Dose: Not Given Miscellaneous (Carbohydrates For Hypoglycemia ) 15 - 30 gm PO UD PRN PRN Reason: Hypoglycemia Protocol Stop: 01/07/23 00:29 Multivitamins (Multivitamin Tab) 1 tab PO DAILY [facility] Stop: 01/07/23 08:59 Last Admin: 12/08/22 08:28 Dose: 1 tab Venlafaxine HCl (Venlafaxine Hcl Xr 150 Mg Capxr) 150 mg PO BID [facility] Stop: 01/07/23 08:59 Last Admin: 12/08/22 08:28 Dose: 150 mg
[2022-12-08 20:54] LABS: Partial Thromboplastin Ratio 1.3; Partial Thromboplastin Time 36.5 Seconds (21.0-31.0)
[2022-12-09] MEDS: ALBUMIN 25% 25 GM/100 ML VIAL IV SCH (02:24)
[2022-12-09 04:13] LABS: Partial Thromboplastin Ratio 1.2; Partial Thromboplastin Time 34.7 Seconds (21.0-31.0)
[2022-12-09] MEDS: HEPARIN SODIUM/DEXTROSE 25,000 UNITS/500 ML BAG IV SCH (04:48)
[2022-12-09] MEDS: CEFEPIME 2,000 MG in SYRINGE 0 ML IV SCH ×3 (05:26→21:56)
[2022-12-09] MEDS ORDERED: HEPARIN SOD (PORCINE) 1000 UNIT/ML IV ONE ×2 (05:45→21:45)
[2022-12-09 09:24] LABS: Basophils # (auto) 0.06 K/uL (0.00-0.20); Basophils % (auto) 0.7 %; Eosinophils # (auto) 0.16 K/uL (0.00-0.50); Eosinophils % (auto) 1.9 %; Hematocrit (blood only) 32.1 % (37.0-47.0); Immature Granulocytes # (auto) 0.03 K/uL (0.01-0.20); Immature Granulocytes % (auto) 0.4 %; Lymphocytes # (auto) 2.81 K/uL (1.20-3.40); Mean Corpuscular Hemoglobin 26.9 pg (25.0-34.0); Mean Corpuscular Hgb Conc 31.2 g/dL (32.0-36.0); Mean Corpuscular Volume 86.3 fL (80.0-100.0); Mean Platelet Volume 8.8 fL (9.4-12.4); Monocytes # (auto) 0.73 K/uL (0.11-0.59); Monocytes % (auto) 8.8 %; Neutrophils # (auto) 4.48 K/uL (1.40-6.50); Neutrophils % (auto) 54.2 %; Platelet Count 527 K/uL (130-400); RDW Standard Deviation 46.8 fL (36.4-46.3); Red Blood Count 3.72 M/uL (4.20-5.40); White Blood Count 8.27 K/ul (4.8-10.8)
[2022-12-09] MEDS: BUPRENORPHINE/NALOXONE 8/2 MG TAB SL SCH ×2 (09:26→21:56)
[2022-12-09] MEDS: INSULIN ASPART PER UNIT CHARGE SC SCH ×4 (09:26→20:37)
[2022-12-09] MEDS: VENLAFAXINE HCL XR 150 MG CAPXR PO SCH ×2 (09:27→21:56)
[2022-12-09] MEDS: CIPROFLOXACIN / D5W 400 MG/200 ML BAG IV SCH (09:27)
[2022-12-09] MEDS: MULTIVITAMIN TAB PO SCH (09:27)
[2022-12-09 09:40] LABS: BUN Creatinine Ratio 16.4 (10-20); Calcium 9.6 mg/dl (8.6-10.3); Creatinine Clr Calc Pharmacy 105.4 ml/min; Est GFR (African American) 115.5 ml/min; Est GFR (Non-African American) 99.7 ml/min; Potassium 3.9 mmol/L (3.5-5.1)
[2022-12-09 13:48] LABS: Partial Thromboplastin Ratio 1.3; Partial Thromboplastin Time 36.5 Seconds (21.0-31.0)
--- NOTE | 2022-12-09 15:15 | Hospitalist Progress Note ---
Date of Service December 09, 2022 Assessment & Plan (1) Bilateral cellulitis of lower leg: Plan: Recurrent bilateral LE cellulitis , right greater than the left Concomitant right foot involvement hx chronic leg ulcers with infection for a long time Never been to wound clinic and saw PCP last week and was started on oral antibiotic with Keflex and did not show any improvement Condition has been getting worse-chronic skin changes of both the legs with 1+ edema bilaterally and ulcerations; please see the picture for details review Rule out osteomyelitis given recurrent infections-MRI both lower extremities and right foot to rule out osteomyelitis Pseudomonas on recent outpatient CS CS, Ciprofloxacin Wound care consult-appreciate input and recommendation No sepsis for now Started on intravenous cefepime DVT right popliteal veins Started on intravenous heparin Will need anticoagulation for at least 3 months We will continue with heparin for now-we will put her on Eliquis on discharge New diagnosis of DM 2, hemoglobin A1c of 6.6 ISS BG goal 1 10-1 40, DM education Chronic anemia (unknown baseline as per patient) Anemia work-up Anxiety/mood disorder, stable on regimen Chronic pain on Suboxone Ongoing tobacco abuse Nicotine patch as needed DVT prophylaxis. Lovenox subcu Full code Admission and Anticipated Discharge Date Admission Date: December 07, 2022 Subjective 12/08/2022 The patient was seen and examined in emergency room She has been complaining of pain and drainage from the leg wounds associated with leg pain Noted to have DVT involving the popliteal veins She has been feeling better since admission 12/09/2022 The patient was seen and examined in medical telemetry unit She has been feeling better No fever and or chills, and the leg pain has improved Review of Systems Review of Systems: All systems reviewed and are unremarkable except as noted below Physical Exam Physical Exam: Lying in bed comfortably Constitutional: well developed, well nourished, + ill appearing and + obese Eyes: PERRL, conjunctivae normal, anicteric sclerae ENMT: external ear and nose normal, oropharynx normal Neck: trachea midline, no thyromegaly Respiratory: no respiratory distress Auscultation: lungs clear to auscultation bilaterally Cardiovascular: Rate/Rhythm: regular rate and regular rhythm; not tachycardic Heart Sounds: normal S1 and normal S2; no murmur Extremities: + edema (Both the legs are bandaged) Gastrointestinal (Abdomen): Inspection/Auscultation: normal bowel sounds; abdomen not distended Percussion/Palpation: abdomen soft; abdomen nontender Musculoskeletal: No acute arthritis involving any of the joint Skin: Chronic edema with chronic skin changes involving both legs and feet with ulcerations at places Neurologic: normal touch/pain/proprioception and moves all extremities; no focal motor deficits Psychiatric: A+Ox3, euthymic affect Lymphatic: no cervical or axillary lymphadenopathy Results & Data Results & Data Vital Signs (Past 12 Hours) Vital Signs Temp Pulse Resp BP Pulse Ox O2 Del Method O2 Flow Rate 12/09/22 08:00 Room Air 12/09/22 11:04 37 C 81 20 108/65 91 Room Air 12/09/22 07:35 37.1 C 83 16 111/67 93 Nasal Cannula 1 12/09/22 03:57 36.9 C 84 18 120/74 92 Nasal Cannula 1 Laboratory Results Short CBC 12/09/22 Range/Units 09:00 WBC 8.27 (4.8-10.8) K/ul Hgb 10.0 L (12.0-16.0) g/dl Hct 32.1 L (37.0-47.0) % Plt Count 527 H (130-400) K/uL BMP 12/09/22 09:00 Sodium 140 Potassium 3.9 Chloride 104 Carbon Dioxide 29 BUN 11 Creatinine 0.67 Glucose 106 H Calcium 9.6 Medications Administered Current Inpatient Medications Acetaminophen (Acetaminophen 325 Mg Tab) 650 mg PO QID PRN PRN Reason: pain/fever Stop: 01/06/23 21:34 Buprenorphine/Naloxone (Buprenorphine/Naloxone 8/2 Mg Tab) 1 tab SL BID [facility] Stop: 01/07/23 08:59 Last Admin: 12/09/22 09:26 Dose: 1 tab Dextrose (Dextrose 50% 50 Ml Syringe) 25 - 50 ml IV UD PRN; Protocol PRN Reason: Hypoglycemia Protocol Stop: 01/07/23 00:29 Glucagon (Glucagon For Inj 1 Mg Vial) 1 mg SQ UD PRN; Protocol PRN Reason: Hypoglycemia Protocol Stop: 01/07/23 00:29 Glucose (Glucose 10 Tab/Tube) 4 - 8 tab PO UD PRN; Protocol PRN Reason: Hypoglycemia Treatment Stop: 01/07/23 00:29 Glucose (Glucose 40% Gel 15 Gm Tube) 15 - 30 gm PO UD PRN; Protocol PRN Reason: Hypoglycemia Protocol Stop: 01/07/23 00:29 Hydroxyzine HCl (Hydroxyzine Hcl 10 Mg Tab) 10 mg PO QID PRN PRN Reason: Anxiety Stop: 01/06/23 21:34 Promethazine HCl (Phenergan) 12.5 mg in 50.5 mls @ 202 mls/hr IV Q6H PRN PRN Reason: Nausea And Vomiting Stop: 01/06/23 21:34 Ciprofloxacin (Cipro / D5w) 400 mg in 200 mls @ 100 mls/hr IV Q12H [facility]; Protocol Stop: 12/15/22 08:59 Last Infusion: 12/09/22 12:01 Dose: Infused Cefepime HCl 2,000 mg/ Syringe 20 mls @ 5 mls/min IV Q8H [facility]; Protocol Stop: 12/15/22 05:59 Last Admin: 12/09/22 14:00 Dose: 5 mls/min Heparin Sodium/Dextrose (Heparin Sodium/Dextrose) 25,000 units in 500 mls @ 26 mls/hr IV .[id number] [facility]; Protocol Stop: 01/07/23 05:29 Last Titration: 12/09/22 14:04 Dose: 1,300 units/hr, 26 mls/hr Insulin Aspart (Insulin Aspart Per Unit Charge) 0 units SC ACHS [facility] Stop: 01/07/23 00:34 Last Admin: 12/09/22 13:44 Dose: Not Given Miscellaneous (Carbohydrates For Hypoglycemia ) 15 - 30 gm PO UD PRN PRN Reason: Hypoglycemia Protocol Stop: 01/07/23 00:29 Multivitamins (Multivitamin Tab) 1 tab PO DAILY [facility] Stop: 01/07/23 08:59 Last Admin: 12/09/22 09:27 Dose: 1 tab Venlafaxine HCl (Venlafaxine Hcl Xr 150 Mg Capxr) 150 mg PO BID [facility] Stop: 01/07/23 08:59 Last Admin: 12/09/22 09:27 Dose: 150 mg
[2022-12-09 20:47] LABS: Partial Thromboplastin Ratio 1.3; Partial Thromboplastin Time 35.5 Seconds (21.0-31.0)
[2022-12-10] MEDS: HEPARIN SODIUM/DEXTROSE 25,000 UNITS/500 ML BAG IV SCH ×2 (01:30→19:23)
[2022-12-10 04:50] LABS: Basophils # (auto) 0.05 K/uL (0.00-0.20); Basophils % (auto) 0.6 %; Eosinophils # (auto) 0.26 K/uL (0.00-0.50); Hematocrit (blood only) 32.2 % (37.0-47.0); Immature Granulocytes # (auto) 0.04 K/uL (0.01-0.20); Immature Granulocytes % (auto) 0.5 %; Lymphocytes # (auto) 3.72 K/uL (1.20-3.40); Lymphocytes % (auto) 42.4 %; Mean Corpuscular Hemoglobin 26.8 pg (25.0-34.0); Mean Corpuscular Hgb Conc 31.1 g/dL (32.0-36.0); Mean Corpuscular Volume 86.3 fL (80.0-100.0); Mean Platelet Volume 8.9 fL (9.4-12.4); Monocytes # (auto) 0.95 K/uL (0.11-0.59); Monocytes % (auto) 10.8 %; Neutrophils # (auto) 3.75 K/uL (1.40-6.50); Neutrophils % (auto) 42.7 %; Platelet Count 521 K/uL (130-400); RDW Standard Deviation 46.5 fL (36.4-46.3); Red Blood Count 3.73 M/uL (4.20-5.40); White Blood Count 8.77 K/ul (4.8-10.8)
[2022-12-10 05:06] LABS: BUN Creatinine Ratio 23.9 (10-20); Calcium 9.3 mg/dl (8.6-10.3); Creatinine Clr Calc Pharmacy 105.4 ml/min; Est GFR (African American) 115.5 ml/min; Est GFR (Non-African American) 99.7 ml/min; Potassium 3.7 mmol/L (3.5-5.1)
[2022-12-10 05:44] LABS: Partial Thromboplastin Ratio 1.4
[2022-12-10] MEDS: CEFEPIME 2,000 MG in SYRINGE 0 ML IV SCH ×4 (05:49→21:28)
[2022-12-10 06:31] LABS: Partial Thromboplastin Time 40.3 Seconds (21.0-31.0)
[2022-12-10] MEDS: MULTIVITAMIN TAB PO SCH (09:42)
[2022-12-10] MEDS: VENLAFAXINE HCL XR 150 MG CAPXR PO SCH ×2 (09:43→21:23)
[2022-12-10] MEDS: INSULIN ASPART PER UNIT CHARGE SC SCH ×4 (09:45→21:22)
[2022-12-10] MEDS: BUPRENORPHINE/NALOXONE 8/2 MG TAB SL SCH ×2 (09:45→21:23)
--- NOTE | 2022-12-10 16:16 | Hospitalist Progress Note ---
Date of Service December 10, 2022 Assessment & Plan (1) Bilateral cellulitis of lower leg: Plan: Recurrent bilateral LE cellulitis , right greater than the left Concomitant right foot involvement hx chronic leg ulcers with infection for a long time Never been to wound clinic and saw PCP last week and was started on oral antibiotic with Keflex and did not show any improvement Condition has been getting worse-chronic skin changes of both the legs with 1+ edema bilaterally and ulcerations; please see the picture for details review Rule out osteomyelitis given recurrent infections-MRI both lower extremities and right foot to rule out osteomyelitis Pseudomonas on recent outpatient CS CS, Ciprofloxacin Wound care consult-appreciate input and recommendation No sepsis for now Started on intravenous cefepime CT scan of the legs did not show any evidence of osteomyelitis We will continue current antibiotic and likely discharge on oral ciprofloxacin for a total of 10 to 14 days Referral to wound care and follow-up with PCP DVT right popliteal veins Started on intravenous heparin Will need anticoagulation for at least 3 months We will continue with heparin for now-we will put her on Eliquis on discharge Will start Eliquis on discharge New diagnosis of DM 2, hemoglobin A1c of 6.6 ISS BG goal 1 10-1 40, DM education Will start metformin on discharge diabetic education Chronic anemia (unknown baseline as per patient) Anemia work-up Anxiety/mood disorder, stable on regimen Chronic pain on Suboxone Ongoing tobacco abuse Nicotine patch as needed DVT prophylaxis. Lovenox subcu Full code Likely discharge tomorrow Admission and Anticipated Discharge Date Admission Date: December 07, 2022 Subjective 12/08/2022 The patient was seen and examined in emergency room She has been complaining of pain and drainage from the leg wounds associated with leg pain Noted to have DVT involving the popliteal veins She has been feeling better since admission 12/09/2022 The patient was seen and examined in medical telemetry unit She has been feeling better No fever and or chills, and the leg pain has improved 12/10/2022 The patient was seen and examined in medical telemetry unit She has been feeling much better and wants to go home Denies any significant symptoms No fever and or chills Review of Systems Review of Systems: All systems reviewed and are unremarkable except as noted below Physical Exam Physical Exam: Lying in bed comfortably Constitutional: well developed, well nourished, + ill appearing and + obese Eyes: PERRL, conjunctivae normal, anicteric sclerae ENMT: external ear and nose normal, oropharynx normal Neck: trachea midline, no thyromegaly Respiratory: no respiratory distress Auscultation: lungs clear to auscultation bilaterally Cardiovascular: Rate/Rhythm: regular rate and regular rhythm; not tachycardic Heart Sounds: normal S1 and normal S2; no murmur Extremities: + edema (Both the legs are bandaged) Gastrointestinal (Abdomen): Inspection/Auscultation: normal bowel sounds; abdomen not distended Percussion/Palpation: abdomen soft; abdomen nontender Musculoskeletal: No acute arthritis involving any of the joint Neurologic: normal touch/pain/proprioception and moves all extremities; no focal motor deficits Psychiatric: A+Ox3, euthymic affect Lymphatic: no cervical or axillary lymphadenopathy Results & Data Results & Data Vital Signs (Past 12 Hours) Vital Signs Temp Pulse Pulse Resp BP Pulse Ox O2 Del Method 12/10/22 14:54 37.1 C 68 16 93/51 L 93 Room Air 12/10/22 11:16 37 C 85 16 104/61 91 Room Air 12/10/22 08:00 Room Air 12/10/22 07:51 36.5 C 75 16 95/58 L 92 Room Air 12/10/22 07:41 76 12/10/22 04:24 37.1 C 78 18 99/63 L 90 Room Air Laboratory Results Short CBC 12/10/22 Range/Units 04:20 WBC 8.77 (4.8-10.8) K/ul Hgb 10.0 L (12.0-16.0) g/dl Hct 32.2 L (37.0-47.0) % Plt Count 521 H (130-400) K/uL BMP 12/10/22 04:20 Sodium 137 Potassium 3.7 Chloride 104 Carbon Dioxide 29 BUN 16 Creatinine 0.67 Glucose 107 H Calcium 9.3 Medications Administered Current Inpatient Medications Acetaminophen (Acetaminophen 325 Mg Tab) 650 mg PO QID PRN PRN Reason: pain/fever Stop: 01/06/23 21:34 Buprenorphine/Naloxone (Buprenorphine/Naloxone 8/2 Mg Tab) 1 tab SL BID [facility] Stop: 01/07/23 08:59 Last Admin: 12/10/22 09:45 Dose: 1 tab Dextrose (Dextrose 50% 50 Ml Syringe) 25 - 50 ml IV UD PRN; Protocol PRN Reason: Hypoglycemia Protocol Stop: 01/07/23 00:29 Glucagon (Glucagon For Inj 1 Mg Vial) 1 mg SQ UD PRN; Protocol PRN Reason: Hypoglycemia Protocol Stop: 01/07/23 00:29 Glucose (Glucose 10 Tab/Tube) 4 - 8 tab PO UD PRN; Protocol PRN Reason: Hypoglycemia Treatment Stop: 01/07/23 00:29 Glucose (Glucose 40% Gel 15 Gm Tube) 15 - 30 gm PO UD PRN; Protocol PRN Reason: Hypoglycemia Protocol Stop: 01/07/23 00:29 Hydroxyzine HCl (Hydroxyzine Hcl 10 Mg Tab) 10 mg PO QID PRN PRN Reason: Anxiety Stop: 01/06/23 21:34 Promethazine HCl (Phenergan) 12.5 mg in 50.5 mls @ 202 mls/hr IV Q6H PRN PRN Reason: Nausea And Vomiting Stop: 01/06/23 21:34 Cefepime HCl 2,000 mg/ Syringe 20 mls @ 5 mls/min IV Q8H [facility]; Protocol Stop: 12/15/22 05:59 Last Admin: 12/10/22 05:49 Dose: 5 mls/min Heparin Sodium/Dextrose (Heparin Sodium/Dextrose) 25,000 units in 500 mls @ 29 mls/hr IV .[id number] [facility]; Protocol Stop: 01/07/23 05:29 Last Admin: 12/10/22 01:30 Dose: 1,450 units/hr, 29 mls/hr Insulin Aspart (Insulin Aspart Per Unit Charge) 0 units SC ACHS [facility] Stop: 01/07/23 00:34 Last Admin: 12/10/22 14:17 Dose: Not Given Miscellaneous (Carbohydrates For Hypoglycemia ) 15 - 30 gm PO UD PRN PRN Reason: Hypoglycemia Protocol Stop: 01/07/23 00:29 Multivitamins (Multivitamin Tab) 1 tab PO DAILY [facility] Stop: 01/07/23 08:59 Last Admin: 12/10/22 09:42 Dose: 1 tab Venlafaxine HCl (Venlafaxine Hcl Xr 150 Mg Capxr) 150 mg PO BID [facility] Stop: 01/07/23 08:59 Last Admin: 12/10/22 09:43 Dose: 150 mg
[2022-12-11] MEDS: CEFEPIME 2,000 MG in SYRINGE 0 ML IV SCH ×2 (05:53→13:41)
[2022-12-11 07:19] LABS: Basophils # (auto) 0.05 K/uL (0.00-0.20); Basophils % (auto) 0.8 %; Eosinophils # (auto) 0.21 K/uL (0.00-0.50); Eosinophils % (auto) 3.5 %; Hematocrit (blood only) 31.9 % (37.0-47.0); Hemoglobin 9.9 g/dl (12.0-16.0); Immature Granulocytes # (auto) 0.02 K/uL (0.01-0.20); Immature Granulocytes % (auto) 0.3 %; Lymphocytes # (auto) 2.96 K/uL (1.20-3.40); Lymphocytes % (auto) 49.4 %; Mean Corpuscular Volume 87.2 fL (80.0-100.0); Mean Platelet Volume 9.3 fL (9.4-12.4); Monocytes # (auto) 0.59 K/uL (0.11-0.59); Monocytes % (auto) 9.8 %; Neutrophils # (auto) 2.16 K/uL (1.40-6.50); Neutrophils % (auto) 36.2 %; Platelet Count 528 K/uL (130-400); RDW Coefficient of Variation 15.1 % (11.5-14.5); RDW Standard Deviation 47.5 fL (36.4-46.3); Red Blood Count 3.66 M/uL (4.20-5.40); White Blood Count 5.99 K/ul (4.8-10.8)
[2022-12-11 07:54] LABS: Partial Thromboplastin Ratio 1.4
[2022-12-11 07:56] LABS: Partial Thromboplastin Time 40.5 Seconds (21.0-31.0)
[2022-12-11] MEDS: BUPRENORPHINE/NALOXONE 8/2 MG TAB SL SCH (08:23)
[2022-12-11] MEDS: VENLAFAXINE HCL XR 150 MG CAPXR PO SCH (08:23)
[2022-12-11] MEDS: MULTIVITAMIN TAB PO SCH (08:23)
[2022-12-11] MEDS ORDERED: APIXABAN 5 MG TABLET PO SCH (09:00)
[2022-12-11] MEDS: INSULIN ASPART PER UNIT CHARGE SC SCH ×2 (10:04→13:40)
--- NOTE | 2022-12-11 13:10 | Hospitalist Progress Note ---
Date of Service December 11, 2022 Assessment & Plan (1) Bilateral cellulitis of lower leg: Plan: Recurrent bilateral LE cellulitis , right greater than the left Concomitant right foot involvement hx chronic leg ulcers with infection for a long time Never been to wound clinic and saw PCP last week and was started on oral antibiotic with Keflex and did not show any improvement Condition has been getting worse-chronic skin changes of both the legs with 1+ edema bilaterally and ulcerations; please see the picture for details review Rule out osteomyelitis given recurrent infections-MRI both lower extremities and right foot to rule out osteomyelitis Pseudomonas on recent outpatient CS CS, Ciprofloxacin Wound care consult-appreciate input and recommendation No sepsis for now Started on intravenous cefepime CT scan of the legs did not show any evidence of osteomyelitis We will continue current antibiotic and likely discharge on oral ciprofloxacin for a total of 10 to 14 days Referral to wound care and follow-up with PCP Will start oral ciprofloxacin to continue for a total of 14 days Vies to continue with dressing of the wound as advised and keep the wound clean and dry Strongly advised to give appointment with the primary care provider DVT right popliteal veins Started on intravenous heparin Will need anticoagulation for at least 3 months We will continue with heparin for now-we will put her on Eliquis on discharge Will start Eliquis on discharge New diagnosis of DM 2, hemoglobin A1c of 6.6 ISS BG goal 1 10-1 40, DM education Will start metformin on discharge diabetic education Diabetic diet for now Chronic anemia (unknown baseline as per patient) Anemia work-up Anxiety/mood disorder, stable on regimen Chronic pain on Suboxone Ongoing tobacco abuse Nicotine patch as needed DVT prophylaxis. Lovenox subcu Full code Likely discharge this afternoon Admission and Anticipated Discharge Date Admission Date: December 07, 2022 Subjective 12/08/2022 The patient was seen and examined in emergency room She has been complaining of pain and drainage from the leg wounds associated with leg pain Noted to have DVT involving the popliteal veins She has been feeling better since admission 12/09/2022 The patient was seen and examined in medical telemetry unit She has been feeling better No fever and or chills, and the leg pain has improved 12/10/2022 The patient was seen and examined in medical telemetry unit She has been feeling much better and wants to go home Denies any significant symptoms No fever and or chills 12/11/2022 The patient was seen and examined in medical telemetry unit in presence of the She has been feeling much better and wants to go home Denies any symptoms, he has been ambulating without any difficulties Review of Systems Review of Systems: All systems reviewed and are unremarkable except as noted below Physical Exam Physical Exam: Lying in bed comfortably Constitutional: well developed, well nourished, + ill appearing and + obese Eyes: PERRL, conjunctivae normal, anicteric sclerae ENMT: external ear and nose normal, oropharynx normal Neck: trachea midline, no thyromegaly Respiratory: no respiratory distress Auscultation: lungs clear to auscultation bilaterally Cardiovascular: Rate/Rhythm: regular rate and regular rhythm; not tachycardic Heart Sounds: normal S1 and normal S2; no murmur Extremities: + edema (Both the legs are bandaged) Gastrointestinal (Abdomen): Inspection/Auscultation: normal bowel sounds; abdomen not distended Percussion/Palpation: abdomen soft; abdomen nontender Musculoskeletal: No acute arthritis involving any of the joint Neurologic: normal touch/pain/proprioception and moves all extremities; no focal motor deficits Psychiatric: A+Ox3, euthymic affect Lymphatic: no cervical or axillary lymphadenopathy Results & Data Results & Data Vital Signs (Past 12 Hours) Vital Signs Temp Pulse Pulse Resp BP Pulse Ox O2 Del Method 12/11/22 11:54 36.7 C 79 18 103/65 93 Room Air 12/11/22 08:08 81 12/11/22 07:51 37.0 C 70 18 109/70 94 Room Air Laboratory Results Short CBC 12/11/22 Range/Units 05:57 WBC 5.99 (4.8-10.8) K/ul Hgb 9.9 L (12.0-16.0) g/dl Hct 31.9 L (37.0-47.0) % Plt Count 528 H (130-400) K/uL Medications Administered Current Inpatient Medications Acetaminophen (Acetaminophen 325 Mg Tab) 650 mg PO QID PRN PRN Reason: pain/fever Stop: 01/06/23 21:34 Apixaban (Apixaban 5 Mg Tablet) 10 mg PO BID DELVIN Stop: 12/17/22 21:01 Last Admin: 12/11/22 10:04 Dose: 10 mg Apixaban (Apixaban 5 Mg Tablet) 5 mg PO BID DELVIN Stop: 01/17/23 08:59 Buprenorphine/Naloxone (Buprenorphine/Naloxone 8/2 Mg Tab) 1 tab SL BID DELVIN Stop: 01/07/23 08:59 Last Admin: 12/11/22 08:23 Dose: 1 tab Dextrose (Dextrose 50% 50 Ml Syringe) 25 - 50 ml IV UD PRN; Protocol PRN Reason: Hypoglycemia Protocol Stop: 01/07/23 00:29 Glucagon (Glucagon For Inj 1 Mg Vial) 1 mg SQ UD PRN; Protocol PRN Reason: Hypoglycemia Protocol Stop: 01/07/23 00:29 Glucose (Glucose 10 Tab/Tube) 4 - 8 tab PO UD PRN; Protocol PRN Reason: Hypoglycemia Treatment Stop: 01/07/23 00:29 Glucose (Glucose 40% Gel 15 Gm Tube) 15 - 30 gm PO UD PRN; Protocol PRN Reason: Hypoglycemia Protocol Stop: 01/07/23 00:29 Hydroxyzine HCl (Hydroxyzine Hcl 10 Mg Tab) 10 mg PO QID PRN PRN Reason: Anxiety Stop: 01/06/23 21:34 Promethazine HCl (Phenergan) 12.5 mg in 50.5 mls @ 202 mls/hr IV Q6H PRN PRN Reason: Nausea And Vomiting Stop: 01/06/23 21:34 Cefepime HCl 2,000 mg/ Syringe 20 mls @ 5 mls/min IV Q8H DELVIN; Protocol Stop: 12/15/22 05:59 Last Admin: 12/11/22 05:53 Dose: 5 mls/min Insulin Aspart (Insulin Aspart Per Unit Charge) 0 units SC ACHS DELVIN Stop: 01/07/23 00:34 Last Admin: 12/11/22 10:04 Dose: 3 units Miscellaneous (Carbohydrates For Hypoglycemia ) 15 - 30 gm PO UD PRN PRN Reason: Hypoglycemia Protocol Stop: 01/07/23 00:29 Multivitamins (Multivitamin Tab) 1 tab PO DAILY DELVIN Stop: 01/07/23 08:59 Last Admin: 12/11/22 08:23 Dose: 1 tab Venlafaxine HCl (Venlafaxine Hcl Xr 150 Mg Capxr) 150 mg PO BID DELVIN Stop: 01/07/23 08:59 Last Admin: 12/11/22 08:23 Dose: 150 mg
--- NOTE | 2022-12-11 17:53 | Discharge Summary ---
Date of Service December 11, 2022 Admission HPI Per Admitting Provider Chief Complaint: Leg wound infection Primary Care Provider: Dr. Prakash History obtained from patient and records. Medical history significant for chronic leg ulcers, borderline diabetes as per patient, chronic anemia (unknown baseline as per patient), anxiety/mood disorder, chronic pain on Suboxone, ongoing tobacco abuse. Patient admitted at [facility] last year for bilateral LE cellulitis. right greater than the left. Right foot also involved as per patient. Patient signed out AGAINST MEDICAL ADVICE. [facility] ER visit for recurrent June 2022 right foot infection. No stenosis on R LE arterial Dopplers. No DVT on RLE venous Dopplers. Patient given IM ceftriaxone and discharged on unrecalled antibiotic course. Last month, patient had recurrence of RLE swelling followed by foul-smelling wound drainage and subsequent right foot swelling. LLE swelling noted 2 weeks later. Denies chest pain, SOB, or fluid retention. Patient saw new PCP last week after not seeing a family doctor for 2 years. Bilateral redness and open ulcerations with yellow drainage on both lower legs noted right greater than the left, Outpatient wound care referral contemplated. Wound cultures obtained Outpatient Keflex course prescribed without improvement as per patient. Wound CS later resulted in Pseudomonas and MSSA. Patient directed to ER for evaluation. IV cefepime administered at the ER. Admission Exam Per Admitting Provider Physical Exam: GENERAL: Comfortable, obese, apathetic, looks older than stated age, no respiratory distress SKIN: Pallor , warm HEENT: Pale palpebral conjunctivae, no ptosis, dry buccal mucosa NECK : Supple, short neck, no tenderness CHEST : CTA, no tenderness HEART : Tachycardic, no obvious murmurs ABDOMEN: Some distention, nontender EXTREMITIES : Dressings over both lower extremities, LE tenderness, no other conspicuous deformities noted NEUROLOGIC : Coherent, no facial asymmetry, no other gross focality Principal Diagnosis Bilateral cellulitis of lower legs, DVT, type 2 diabetes Discharge Exam Constitutional well developed, well nourished, + ill appearing and + obese Eyes PERRL, conjunctivae normal, anicteric sclerae ENMT external ear and nose normal, oropharynx normal Neck trachea midline, no thyromegaly Respiratory no respiratory distress Auscultation: lungs clear to auscultation bilaterally Cardiovascular Rate/Rhythm: regular rate and regular rhythm; not tachycardic Heart Sounds: normal S1 and normal S2; no murmur Extremities: + edema (Both the legs are bandaged) Gastrointestinal (Abdomen) Inspection/Auscultation: normal bowel sounds; abdomen not distended Percussion/Palpation: abdomen soft; abdomen nontender Neurologic normal touch/pain/proprioception and moves all extremities; no focal motor deficits Psychiatric A+Ox3, euthymic affect Lymphatic no cervical or axillary lymphadenopathy Discharge Data Allergies Allergy/AdvReac Type Severity Reaction Status Date / Time No Known Allergies Allergy Verified 12/07/22 15:00 Consultations 12/07/22 19:59 ED Decision to Admit Stat Ordered Studies 12/07/22 21:22 CT foot RT w con Stat CT tib/fib LT w con Stat CT tib/fib RT w con Stat 12/07/22 21:43 US venous doppler LE BI Stat Hospital Course (1) Bilateral cellulitis of lower leg: Assessment & Plan (1) Bilateral cellulitis of lower leg: Plan: Recurrent bilateral LE cellulitis , right greater than the left Concomitant right foot involvement hx chronic leg ulcers with infection for a long time Never been to wound clinic and saw PCP last week and was started on oral antibiotic with Keflex and did not show any improvement Condition has been getting worse-chronic skin changes of both the legs with 1+ edema bilaterally and ulcerations; please see the picture for details review Rule out osteomyelitis given recurrent infections-MRI both lower extremities and right foot to rule out osteomyelitis Pseudomonas on recent outpatient CS CS, Ciprofloxacin Wound care consult-appreciate input and recommendation No sepsis for now Started on intravenous cefepime CT scan of the legs did not show any evidence of osteomyelitis We will continue current antibiotic and likely discharge on oral ciprofloxacin for a total of 10 to 14 days Referral to wound care and follow-up with PCP Will start oral ciprofloxacin to continue for a total of 14 days Vies to continue with dressing of the wound as advised and keep the wound clean and dry Strongly advised to give appointment with the primary care provider DVT right popliteal veins Started on intravenous heparin Will need anticoagulation for at least 3 months We will continue with heparin for now-we will put her on Eliquis on discharge Will start Eliquis on discharge New diagnosis of DM 2, hemoglobin A1c of 6.6 ISS BG goal 1 10-1 40, DM education Will start metformin on discharge diabetic education Diabetic diet for now Chronic anemia (unknown baseline as per patient) Anemia work-up Anxiety/mood disorder, stable on regimen Chronic pain on Suboxone Ongoing tobacco abuse Nicotine patch as needed DVT prophylaxis. Lovenox subcu Full code Likely discharge this afternoon Total Time Total Time Spent Total Time Spent (In Minutes): 35 minutes Discharge Plan Discharge Items Patient Disposition: Home - Self-Care Reason For Visit: BILATERAL LEG WOUND INFECTION Discharge Diagnosis: Bilateral cellulitis of lower legs, DVT, type 2 diabetes Condition on Discharge: Good Activity: Resume your previous activity Non-emergency contact: Primary Care Provider Call non-emergency contact if: you have any medication questions and your symptoms worsen Follow-up/Referrals: Josefina Lewis MD [Outside Practitioners] - (Date & Time 12/18/2022 12:40 PMProvider Josefina Guajardo, [facility] ) Diet: Carb Consistent or DM2 Addtl Attending Provider Instructions: Please take precautions to avoid falls Take your medications as advised Please finish the course of antibiotic Take Eliquis for at least 3 months or as advised by your primary care physician Do not take any NSAIDs like Motrin, ibuprofen, naproxen or aspirin Addtl Craps Dealer Provider Instructions: Wound care as an outpatient: Wash both legs with soap and water, rinse with plain water, dry. Left leg :cover wound with Aquacel AG, ABD and secure with Kerlix. Change every other day and as needed. Right leg: Cover macerated areas on cough with Aquacel AG in place strips of Aquacel AG between toes. Cover crusted areas with Xeroform. Change every other day and as needed for dryness Pending Studies at Discharge: No Stand-Alone Forms: My [facility], Smoking Cessation Medications and DC Order Prescriptions: New Eliquis 5 mg (74 tabs) tablets,dose pack 5 mg PO BID Qty: 74 0RF Rx Instructions: 10mg BID for 7 days and then 5mg BID ciprofloxacin HCl 750 mg tablet 750 mg PO BID Qty: 7 0RF Continued multivitamin Tablet 1 tab PO DAILY venlafaxine 150 mg capsule,extended release 24hr 150 mg PO BID buprenorphine-naloxone 8-2 mg tablet, sublingual 1 tab SUBLINGUAL BID Discontinued cephalexin 500 mg capsule 500 mg PO QID ibuprofen [Advil] 200 mg Tablet 400 mg PO Q6H PRN (Reason: Pain) Discharge Orders: Discharge Order (Routine); Ordered 12/11/22 Ordered By: Anuradha Bolden Admission Data Admit Date/Time: 12/07/22 21:32 Attending Provider: Anuradha Bolden Admit Provider: Ronan Turner Primary Care Provider: PCP,MARAL Other Providers: Ronan Turner ; Candido Huerta [facility] Other Interventions: Discharge Summary Assessment (RN) Last Done: 12/11/22 14:41
[2022-12-18] MEDS ORDERED: APIXABAN 5 MG TABLET PO SCH (09:00)
== END 2022-12-11 15:11 | disposition home health service (06) | DRG 603 ==
LOC: ED 14:43 → INTOOBSV 21:32 → EDINP 21:32 → 2N 12-08 00:24

== ENCOUNTER 2023-05-19 14:22 | Inpatient (IN) ==
--- NOTE | 2023-05-19 14:37 | ED Triage Note ---
Date of Service May 19, 2023 Provider in Triage Author: Linda Villalobos History of Present Illness This patient was briefly evaluated while in triage. An abbreviated physical exam was performed. This patient is a 53-year-old Female who presents to the ED for evaluation sent by [employer] for bilateral LE cellulitis they wanted to direct admit but could not due to code flow bilateral leg redness/swelling/draining x 4-5 days Physical Exam GENERAL: NAD CARDIOVASCULAR: RRR RESPIRATORY: CTA ABDOMEN: BS x 4. Nontender to palpation. unable to visualize legs in triage Initial orders for labs and / or imaging were placed and patient was placed in the waiting area until a bed is available. Please see further documentation for the full ED course.
[2023-05-19 15:43] LABS: Basophils # (auto) 0.04 K/uL (0.00-0.20); Basophils % (auto) 0.6 %; Eosinophils % (auto) 2.8 %; Hematocrit (blood only) 31.3 % (37.0-47.0); Hemoglobin 10.1 g/dl (12.0-16.0); Immature Granulocytes # (auto) 0.02 K/uL (0.01-0.20); Immature Granulocytes % (auto) 0.3 %; Lymphocytes # (auto) 2.53 K/uL (1.20-3.40); Lymphocytes % (auto) 35.7 %; Mean Corpuscular Hgb Conc 32.3 g/dL (32.0-36.0); Mean Corpuscular Volume 89.9 fL (80.0-100.0); Monocytes # (auto) 0.72 K/uL (0.11-0.59); Monocytes % (auto) 10.2 %; Neutrophils # (auto) 3.58 K/uL (1.40-6.50); Neutrophils % (auto) 50.4 %; Platelet Count 408 K/uL (130-400); RDW Coefficient of Variation 17.1 % (11.5-14.5); RDW Standard Deviation 55.5 fL (36.4-46.3); Red Blood Count 3.48 M/uL (4.20-5.40); White Blood Count 7.09 K/ul (4.8-10.8)
[2023-05-19 15:52] LABS: Partial Thromboplastin Ratio 1.2; Partial Thromboplastin Time 34 Seconds (21-31); Prothrombin Time 10.9 Seconds (9.0-12.0)
[2023-05-19 16:04] LABS: Albumin Globulin Ratio 1.1 (0.9-2); Albumin Level 3.4 gm/dl (3.4-5.0); BUN Creatinine Ratio 16.9 (10-20); Bilirubin,Total 0.4 mg/dl (0.2-1.0); Creatinine Clr Calc Pharmacy 123.5 ml/min; Est GFR (African American) 119.6 ml/min; Est GFR (Non-African American) 103.2 ml/min; Globulin 3.2 gm/dl (2.5-4.0); Potassium 4.1 mmol/L (3.5-5.1); Total Protein 6.6 gm/dl (6.0-8.3)
--- NOTE | 2023-05-19 16:33 | Ultrasound Report ---
ULTRASOUND BILATERAL LOWER EXTREMITY VENOUS CLINICAL HISTORY: Lower extremity swelling and edema. COMPARISON STUDY: Bilateral lower extremity venous ultrasound dated 12/07/2022. TECHNIQUE: Real-time, grayscale, and color Doppler sonography of the deep veins of the right and left lower extremity was performed from the inguinal crease to the calf. Compression and augmentation wer e utilized. FINDINGS: There is no sonographic evidence of acute deep venous thrombosis identified in the right or left lower extremity. The common femoral, superficial femoral, and popliteal veins are patent and no rmally compressible bilaterally. The greater saphenous vein and the profunda femoris vein at the junc tion with the common femoral vein are clear in both legs. There is a small amount of chronic appearin g thrombus within the right posterior tibial and peroneal veins. The visualized calf veins in the lef t leg are patent. A prominent left normal lymph node is likely reactive. Soft tissue edema is present in both legs. IMPRESSION: 1. There is no sonographic evidence of acute deep venous thrombosis identified in the right or left l ower extremity. 2. There is a small amount of chronic appearing thrombus in the right calf within the posterior tibia l and peroneal veins. ACT 112: Negative or not required by law. Electronically signed by: Jhonatan Dias M.D. 05/19/2023 4:32 PM
[2023-05-19] MEDS ORDERED: VANCOMYCIN CONSULT ACTIVE PRN ×2 (19:07→20:36)
--- NOTE | 2023-05-19 19:11 | Emergency Department Note ---
Impression & Plan Bilateral cellulitis of lower leg, Bilateral leg pain ED Provider Note NAME: BRAD COREAS AGE: 53 SEX: F : 1970 ARRIVES VIA: Walk-In INFORMANT: Patient, ED PROVIDER(S): Lexis Newman MD CHIEF COMPLAINT: Lower extremity swelling, patient antibiotics failed HPI: This is a 53-year-old female with presenting for lower extremity swelling/redness. Patient states that she saw her primary care physician who started on antibiotics in the outpatient setting for her bilateral lower extremity swelling. She states she took ciprofloxacin and this did not work and her leg became more swollen. Says sent in by [facility] team for evaluation. Patient does have significantly swollen bilateral lower extremities which are new, worsening over the past 1 week. No previous history of lower extremity edema as per patient. No heart failure history. No fevers or chills. ROS: See above HPI for pertinent positives & negatives. A total of 10 systems reviewed and were otherwise negative. PAST MEDICAL HISTORY: See Below PAST SURGICAL HISTORY: See Below FAMILY HISTORY: See Below SOCIAL HISTORY: See Below HOME MEDICATIONS: See Below ALLERGIES: See Below VITALS: See Below PHYSICAL EXAMINATION: General: resting comfortably in no acute distress Head: Normocephalic and atraumatic Eyes: Normal inspection, extraocular muscles intact Ear, nose, throat: Normal external exam Neck: Normal range of motion Respiratory: lungs clear to auscultation bilaterally Cardiovascular: Regular rate/rhythm, no murmur GI: soft, nontender, no guarding or rebound Extremities: n 2+ pitting edema to bilateral lower extremities, e significant warmth, erythema and tenderness to palpation Neuro: The patient awake and alert, appropriately conversive, no focal deficits, symmetric faces Skin: Warm, dry, and intact MEDICAL DECISION MAKING: This is a 53-year-old female senting for lower extremity swelling/redness. Consider CHF, fluid overload versus cellulitis. Patient does have significantly swollen, red and tender legs. Consider cellulitis most likely. Will order vancomycin. Patient also has edema, will order IV Lasix. Patient blood work is reviewed showing leukocytosis or other significant abnormalities. Will add on BNP -DVT study was negative for new clot. -Will admit to hospital service at this time for cellulitis management. Differential diagnosis: DVT, cellulitis, fluid overload ER treatment provided: See below Diagnostics interpreted by me: ECG: None Cardiac Monitoring: An order was placed for continuous cardiac monitoring. The monitor shows a rate of 87 with sinus rhythm. Laboratory studies: As stated above and show below. Imaging studies: See below. Past Med/Surg History Medical History Diabetes type 2, controlled Acute deep vein thrombosis (DVT) of right popliteal vein Social History Smoking Status: Current every day smoker Tobacco Type: Cigarettes packs per day: 1; Hx Alcohol Use: No Hx Substance Use: No Preferred Language: Icelandic Communication Ability: Effective Visual Impairment: No Limitations Hearing Ability: Normal Ropewalk Rope Maker Required: No Beliefs That Will Affect Care: None marital status: Single Current Living Situation: Significant Other current occupational status: disabled How many Children do You have: 1 Feels Safe at Home: Yes Diet: regular caffeine: Yes during the past year weight has: increased > 10 lbs Assistive Devices: None Allergies Allergies Allergy/AdvReac Type Severity Reaction Status Date / Time No Known Allergies Allergy Verified 05/19/23 20:10 Home Meds Home Medications Medication Instructions Recorded Confirmed buprenorphine 8 mg-naloxone 2 mg 1 tab sublingual BID 12/07/22 05/19/23 sublingual tablet multivitamin 1 tab PO QAM 12/07/22 05/19/23 venlafaxine 150 mg 150 mg PO QAM 12/07/22 05/19/23 capsule,extended release 24 hr metformin 500 mg tablet 500 mg PO DAILY 12/22/22 05/19/23 apixaban 5 mg tablet (Eliquis) 5 mg PO BID 05/19/23 05/19/23 atorvastatin 20 mg tablet 20 mg PO HS 05/19/23 05/19/23 ciprofloxacin HCl 500 mg tablet 500 mg PO BID 05/19/23 05/19/23 Results & Data (ED) Vital Signs Vital Signs - 24 hr 05/19/23 14:34 05/19/23 18:48 05/19/23 18:49 Temperature 36.2 C L Temperature Source Temporal Artery Scan Pulse Rate 99 H 85 Pulse Rate [Apical] 85 Respiratory Rate 18 18 Respiratory Effort / Characteristics Non-Labored Non-Labored Spontaneous Respiratory Depth Normal Normal Respiratory Pattern Regular Blood Pressure 124/70 Blood Pressure [Right Arm] 103/58 L Blood Pressure Mean 88 Blood Pressure Mean [Right Arm] 73 Blood Pressure Position [Right Arm] Lying Pulse Oximetry 93 91 Oxygen Delivery Method Room Air Room Air Sepsis Recent Fever Within 48 Hours No Sepsis New/Unexplained Change in Mental Status N/A Sepsis Action Taken by Nursing No Action Required 05/19/23 19:24 Temperature Temperature Source Pulse Rate Pulse Rate [Apical] 84 Respiratory Rate 20 Respiratory Effort / Characteristics Respiratory Depth Respiratory Pattern Blood Pressure Blood Pressure [Right Arm] 90/52 L Blood Pressure Mean Blood Pressure Mean [Right Arm] 64 Blood Pressure Position [Right Arm] Pulse Oximetry 95 Oxygen Delivery Method Room Air Sepsis Recent Fever Within 48 Hours Sepsis New/Unexplained Change in Mental Status Sepsis Action Taken by Nursing Laboratory Data 05/19/23 15:05 05/19/23 15:05 Lab Results 05/19/23 05/19/23 Range/Units 15:05 19:28 WBC 7.09 (4.8-10.8) K/ul RBC 3.48 L (4.20-5.40) M/uL Hgb 10.1 L (12.0-16.0) g/dl Hct 31.3 L (37.0-47.0) % MCV 89.9 (80.0-100.0) fL MCH 29.0 (25.0-34.0) pg MCHC 32.3 (32.0-36.0) g/dL RDW Std Deviation 55.5 H (36.4-46.3) fL RDW Coeff of Kirill 17.1 H (11.5-14.5) % Plt Count 408 H (130-400) K/uL MPV 9.0 L (9.4-12.4) fL Immature Gran % (Auto) 0.3 % Neut % (Auto) 50.4 % Lymph % (Auto) 35.7 % [place] % (Auto) 10.2 % Eos % (Auto) 2.8 % Baso % (Auto) 0.6 % Neut # (Auto) 3.58 (1.40-6.50) K/uL Lymph # (Auto) 2.53 (1.20-3.40) K/uL [place] # (Auto) 0.72 H (0.11-0.59) K/uL Eos # (Auto) 0.20 (0.00-0.50) K/uL Baso # (Auto) 0.04 (0.00-0.20) K/uL Immature Gran # (Auto) 0.02 (0.01-0.20) K/uL ESR 62 H (0-30) mm/hr PT 10.9 (9.0-12.0) Seconds INR 1.0 (0.9-1.1) APTT 34 H (21-31) Seconds PTT Ratio 1.2 Sodium 139 (136-145) mmol/L Potassium 4.1 (3.5-5.1) mmol/L Chloride 104 (98-107) mmol/L Carbon Dioxide 29 (21-32) mmol/L Anion Gap 6 (3-11) BUN 10 (6-23) mg/dl Creatinine 0.59 L (0.6-1.2) mg/dl Est Cr Clr Drug Dosing 123.5 ml/min Est GFR ( Amer) 119.6 ml/min Est GFR (Non-Af Amer) 103.2 ml/min BUN/Creatinine Ratio 16.9 (10-20) Glucose 92 (70-99(Fasting)) mg/dl Calcium 9.0 (8.6-10.3) mg/dl Total Bilirubin 0.4 (0.2-1.0) mg/dl AST 20 (13-39) U/L ALT 28 (7-52) U/L Alkaline Phosphatase 93 (34-104) U/L C-Reactive Protein 3.04 H (0-0.5) mg/dl B-Natriuretic Peptide 56 (0-100) pg/ml Total Protein 6.6 (6.0-8.3) gm/dl Albumin 3.4 (3.4-5.0) gm/dl Globulin 3.2 (2.5-4.0) gm/dl Albumin/Globulin Ratio 1.1 (0.9-2) Administered Medications Apixaban (Apixaban 5 Mg Tablet) 5 mg PO BID DELVIN Stop: 06/18/23 20:59 Last Admin: 05/19/23 22:12 Dose: 5 mg Documented By: BAL Atorvastatin Calcium (Atorvastatin 20 Mg Tab) 20 mg PO DELVIN Stop: 06/18/23 20:59 Last Admin: 05/19/23 22:12 Dose: 20 mg Documented By: BAL Buprenorphine/Naloxone (Buprenorphine/Naloxone 8/2 Mg Tab) 1 tab SL BID DELVIN Stop: 06/18/23 20:59 Last Admin: 05/19/23 22:12 Dose: 1 tab Documented By: BAL Insulin Aspart (Insulin Aspart Per Unit Charge) 0 units SC ACHS DELVIN Stop: 06/18/23 20:59 Last Admin: 05/19/23 22:20 Dose: Not Given Documented By: BAL Co-signed By: JUAN CARLOS Discontinued Medications Furosemide (Furosemide Inj 20 Mg/2 Ml Vial) 20 mg IV ONE ONE Stop: 05/19/23 19:08 Last Admin: 05/19/23 19:32 Dose: Not Given Documented By: BAL Vancomycin HCl 2,000 mg/ (Sodium Chloride) 540 mls @ 200 mls/hr IV NOW ONE Stop: 05/19/23 21:48 Last Infusion: 05/19/23 22:14 Dose: Infused Documented By: Admin: 05/19/23 19:29 Dose: 200 mls/hr Documented By: BAL Piperacillin Sod/Tazobactam Sod (Zosyn) 4.5 gm in 100 mls @ 200 mls/hr IV ONE STA; Protocol Stop: 05/19/23 21:45 Last Infusion: 05/19/23 22:45 Dose: Infused Documented By: Admin: 05/19/23 22:13 Dose: 200 mls/hr Documented By: BAL Imaging Data Radiologist's Impression: Venous Doppler Study 05/19/23 14:40 ULTRASOUND BILATERAL LOWER EXTREMITY VENOUS CLINICAL HISTORY: Lower extremity swelling and edema. COMPARISON STUDY: Bilateral lower extremity venous ultrasound dated 12/07/2022. TECHNIQUE: Real-time, grayscale, and color Doppler sonography of the deep veins of the right and left lower extremity was performed from the inguinal crease to the calf. Compression and augmentation were utilized. FINDINGS: There is no sonographic evidence of acute deep venous thrombosis identified in the right or left lower extremity. The common femoral, superficial femoral, and popliteal veins are patent and normally compressible bilaterally. The greater saphenous vein and the profunda femoris vein at the junction with the common femoral vein are clear in both legs. There is a small amount of chronic appearing thrombus within the right posterior tibial and peroneal veins. The visualized calf veins in the left leg are patent. A prominent left normal lymph node is likely reactive. Soft tissue edema is present in both legs. IMPRESSION: 1. There is no sonographic evidence of acute deep venous thrombosis identified in the right or left lower extremity. 2. There is a small amount of chronic appearing thrombus in the right calf within the posterior tibial and peroneal veins. ACT 112: Negative or not required by law. Electronically signed by: Jhonatan Dias M.D. 05/19/2023 4:32 PM Discharge Plan Visit Data Chief Complaint: Referred by Doctor Stated Complaint: REF BY DOC, R LEG INFECTION, POS L LEG INFECTION ED Provider: Lexis Newman Discharge Problem: Bilateral cellulitis of lower leg, Bilateral leg pain Discharge Instructions Interventions: ED Discharge Assessment Last Done: 05/19/23 20:37
[2023-05-19] MEDS: VANCOMYCIN HCL 2,000 MG in SODIUM CHLORIDE 0.9% 500 ML IV ONE (19:29)
[2023-05-19] MEDS: FUROSEMIDE INJ 20 MG/2 ML VIAL IV ONE (19:32)
--- NOTE | 2023-05-19 19:38 | History & Physical Report ---
Date of Service May 19, 2023 History of Present Illness Primary Care Provider: Josefina Lewis MD Allergies Allergy/AdvReac Type Severity Reaction Status Date / Time No Known Allergies Allergy Verified 02/18/23 13:23 Home Medications Medication Instructions Recorded Confirmed Type buprenorphine 8 mg-naloxone 2 mg 1 tab sublingual BID 12/07/22 02/10/23 History sublingual tablet multivitamin 1 tab PO DAILY 12/07/22 02/10/23 History venlafaxine 150 mg 150 mg PO BID 12/07/22 02/10/23 History capsule,extended release 24 hr apixaban 5 mg (74 tabs) tablets in 5 mg PO BID #74 ea 12/11/22 02/10/23 Rx a dose pack (Eliquis) metformin 500 mg tablet 500 mg PO DAILY 12/22/22 02/10/23 History atorvastatin 10 mg tablet 20 mg PO DAILY 02/05/23 02/10/23 History Past Med/Surg History Medical History Diabetes type 2, controlled Acute deep vein thrombosis (DVT) of right popliteal vein Social History Smoking Status: Current every day smoker Tobacco Type: Cigarettes packs per day: 1; Hx Alcohol Use: No Hx Substance Use: No Preferred Language: Mongolian Communication Ability: Effective Visual Impairment: No Limitations Hearing Ability: Normal Manager Equipment Required: No Beliefs That Will Affect Care: None marital status: Single Current Living Situation: Significant Other current occupational status: disabled How many Children do You have: 1 Feels Safe at Home: Yes Diet: regular caffeine: Yes during the past year weight has: increased > 10 lbs Assistive Devices: None Results & Data Results & Data Vital Signs (Past 12 Hours) Vital Signs Temp Pulse Pulse Resp BP BP Pulse Ox 05/19/23 19:24 84 20 90/52 L 95 05/19/23 18:49 85 18 103/58 L 91 05/19/23 18:48 85 05/19/23 14:34 36.2 C L 99 H 18 124/70 93 O2 Del Method 05/19/23 19:24 Room Air 05/19/23 18:49 Room Air 05/19/23 18:48 05/19/23 14:34 Room Air
--- NOTE | 2023-05-19 19:44 | History & Physical Report ---
Date of Service May 19, 2023 Assessment & Plan (1) Bilateral cellulitis of lower leg: Plan Bilateral lower extremity Cellulitis Patient presents with bilateral lower extremity edema which is gradually progressing. Similar presentation in November 2022. Wound culture at that time positive for MSSA and Pseudomonas No leukocytosis present Venous duplex shows a small amount of chronic appearing thrombus in right calf Started on vancomycin and Zosyn Obtain ESR, CRP Continue IV antibiotics till clinical improvement; transition to oral after improvement in symptoms Wound care consult Follow-up on blood culture Chronic conditions; History of DVTcontinue on Eliquis Hyperlipidemiacontinue on Lipitor Type 2 diabetes mellitushold home metformin; sliding scale insulin History of opioid dependence continue on buprenorphine Mood disordercontinue venlafaxine Full code DVT prophylaxis Eliquis Time spent evaluating patient, direct bedside care, chart review, placing orders, interpretation of diagnostic studies, discussion with consultants, patient, and family members, as well as other required patient management activities is 60 minutes Please note the above document was generated using voice recognition software. It may contain grammatical, syntax or spelling errors. Any formal questions or concerns about the content, text or information contained within the body of this dictation should be directly addressed to the provider for clarification History of Present Illness Chief Complaint: bilateral lower extremity cellulitis Primary Care Provider: Josefina Lewis MD History obtained from chart review and interview with the patient Last confinement in November 2022 with bilateral lower extremity cellulitis and DVT of right lower extremity Patient is a 53-year-old female with past medical history of DVT of right lower extremity on Eliquis, type 2 diabetes mellitus, hyperlipidemia, was referred to admission by her primary care doctor due to bilateral lower extremity cellulitis after failing outpatient antibiotic course(Ciprofloxacin). Patient was seen as outpatient for with increasing redness in bilateral lower extremity for which she was given ciprofloxacin. The swelling and redness c ontinued to worsen in the last several days. She denies any fever, chills, chest pain, shortness of breath, abdominal pain or urinary symptoms. On presentation to the ED, she was afebrile, normotensive and saturating well on room air WBC did not reveal leukocytosis. BUN/creatinine within normal limits Venous duplex revealed small amount of chronic appearing thrombus in right calf within posterior tibial and peroneal veins. Patient was given vancomycin and was referred for admission. Allergies Allergy/AdvReac Type Severity Reaction Status Date / Time No Known Allergies Allergy Verified 05/19/23 20:10 Home Medications Medication Instructions Recorded Confirmed Type buprenorphine 8 mg-naloxone 2 mg 1 tab sublingual BID 12/07/22 02/10/23 History sublingual tablet multivitamin 1 tab PO DAILY 12/07/22 02/10/23 History venlafaxine 150 mg 150 mg PO BID 12/07/22 02/10/23 History capsule,extended release 24 hr metformin 500 mg tablet 500 mg PO DAILY 12/22/22 02/10/23 History apixaban 5 mg tablet (Eliquis) 5 mg PO BID 05/19/23 05/19/23 History atorvastatin 20 mg tablet 20 mg PO HS 05/19/23 05/19/23 History ciprofloxacin HCl 500 mg tablet 500 mg PO BID 05/19/23 05/19/23 History Past Med/Surg History Medical History Diabetes type 2, controlled Acute deep vein thrombosis (DVT) of right popliteal vein Social History Smoking Status: Current every day smoker Tobacco Type: Cigarettes packs per day: 1; Hx Alcohol Use: No Hx Substance Use: No Preferred Language: Bruneian Communication Ability: Effective Visual Impairment: No Limitations Hearing Ability: Normal Nickel Plater Required: No Beliefs That Will Affect Care: None marital status: Single Current Living Situation: Significant Other current occupational status: disabled How many Children do You have: 1 Feels Safe at Home: Yes Diet: regular caffeine: Yes during the past year weight has: increased > 10 lbs Assistive Devices: None Review of Systems Review of Systems: All systems reviewed & are unremarkable except as noted in Subjective Physical Exam Physical Exam: Constitutional: Alert oriented x 3; not in distress. Respiratory: Bilateral risk at bedside Cardiovascular: RRR, no murmur, no edema Vessels: no JVD or carotid bruit Chest: normal inspection of chest Abdomen: normal bowel sounds, soft, nontender, no hepatosplenomegaly Musculoskeletal: Swelling present in bilateral lower extremity with warmth, erythema and tenderness; going up along the thigh Neurologic: PERRL, EOMI, accommodation nl, no face palsy, no dysarthria CN's II- XI intact bilaterally and moves all extremities Psychiatric: A+Ox3, euthymic affect Results & Data Results & Data Vital Signs (Past 12 Hours) Vital Signs Temp Pulse Pulse Resp BP BP Pulse Ox 05/19/23 19:24 84 20 90/52 L 95 05/19/23 18:49 85 18 103/58 L 91 05/19/23 18:48 85 05/19/23 14:34 36.2 C L 99 H 18 124/70 93 O2 Del Method 05/19/23 19:24 Room Air 05/19/23 18:49 Room Air 05/19/23 18:48 05/19/23 14:34 Room Air
[2023-05-19 20:12] LABS: C Reactive Protein 3.04 mg/dl (0-0.5)
[2023-05-19] MEDS ORDERED: ACETAMINOPHEN 325 MG TAB PO PRN (20:36)
[2023-05-19] MEDS ORDERED: ONDANSETRON INJ 2 MG/ML 2 ML VIAL IV PRN (20:36)
[2023-05-19] MEDS ORDERED: POLYETHYLENE (MIRALAX) 17 GM PACK PO PRN (20:36)
[2023-05-19] MEDS ORDERED: GLUCAGON FOR INJ 1 MG VIAL SQ PRN (20:41)
[2023-05-19] MEDS ORDERED: CARBOHYDRATES FOR HYPOGLYCEMIA PO PRN (20:41)
[2023-05-19] MEDS ORDERED: GLUCOSE 10 TAB/TUBE PO PRN (20:41)
[2023-05-19] MEDS ORDERED: GLUCOSE 40% GEL 15 GM TUBE PO PRN (20:41)
[2023-05-19] MEDS ORDERED: DEXTROSE 50% 50 ML SYRINGE IV PRN (20:41)
[2023-05-19] MEDS: APIXABAN 5 MG TABLET PO SCH (22:12)
[2023-05-19] MEDS: ATORVASTATIN 20 MG TAB PO SCH (22:12)
[2023-05-19] MEDS: BUPRENORPHINE/NALOXONE 8/2 MG TAB SL SCH (22:12)
[2023-05-19] MEDS: PIPERACILLIN/TAZOBACTAM 4.5 GM/100 ML BAG IV STA (22:13)
[2023-05-19] MEDS: INSULIN ASPART PER UNIT CHARGE SC SCH (22:20)
[2023-05-20] MEDS: VANCOMYCIN HCL 1,500 MG in SODIUM CHLORIDE 0.9% 500 ML IV SCH (01:40)
[2023-05-20 03:46] LABS: Hematocrit (blood only) 29.7 % (37.0-47.0); Hemoglobin 9.7 g/dl (12.0-16.0); Mean Corpuscular Hemoglobin 29.5 pg (25.0-34.0); Mean Corpuscular Hgb Conc 32.7 g/dL (32.0-36.0); Mean Corpuscular Volume 90.3 fL (80.0-100.0); Mean Platelet Volume 8.9 fL (9.4-12.4); Platelet Count 370 K/uL (130-400); RDW Coefficient of Variation 17.1 % (11.5-14.5); RDW Standard Deviation 55.6 fL (36.4-46.3); Red Blood Count 3.29 M/uL (4.20-5.40); White Blood Count 6.03 K/ul (4.8-10.8)
[2023-05-20 04:00] LABS: BUN Creatinine Ratio 11.3 (10-20); Calcium 8.7 mg/dl (8.6-10.3); Creatinine Clr Calc Pharmacy 117.5 ml/min; Est GFR (African American) 117.7 ml/min; Est GFR (Non-African American) 101.5 ml/min; Potassium 4.1 mmol/L (3.5-5.1)
--- OUTSIDE RECORDS SUMMARY | 2023-05-20 04:30 | External Medical Summary | Summary of Care ---
Author Name Unknown Organization [facility] Address [address] [place] [address] Phone [phone] Care Team Providers Care Tax Technician Name Role Phone Josefina Guajardo MD Primary Care Prov ider Encounter Details Date Type Department Care Team (Late st Contact Info) Description 11/26/2022 Result Scan Unspecified Department <No scans attached> Allergies No known active allergiesdocumented as of this encounter (statuses as of 01/27/2023) Medications No known medicationsdocumented as of this encounter (statuses as of 01/27/2023) Active Problems Problem Noted Date Diagnosed Date Opioid dependence, in remission 12/25/2022 Lower leg DVT (deep venous thromboembolism), acu te, right 12/18/2022 Type 2 diabetes mellitus wit h hemoglobin A1c goal of less than 7.0% 12/18/2022 ASCVD (arteriosclerotic cardiovascular disease) 12/18/2022 ADVANCE DIRECTIVE INFORMATION 04/21/2005 Overview: No, Advance Directive brochure offered , patient declined. Tobacco use disorder 03/07/2003 documented as of this encounter (statuses as of 01/27/2023) Social History Tobacco Use Types Packs/Day Years Used Date Smoking Tobacco: Every Day Cigarettes 1 10 Alcohol Use Standard Drinks/Week Comments Yes 0 (1 standard drink = 0.6 oz pur e alcohol) Sex and Gender Information Value Date Recorded Sex Assigned at Not on file Gender Identity Not on file Sexual Orientation Not on file Job Start Date Occupation Industry Not on file Not on file Not on file documented as of this encounter Plan of Treatment Upcoming Encounters Date Type Department Care Team (Late st Contact Info) Description 06/16/2023 3:00 PM EDT Office Visit Family Medicine [address] [place] [phone] Josefina Guajardo MD [address] [place] [address] JEAN Fuller [phone] Health Maintenance Due Date Last Done Comments DISCUSS TOBACCO CESSATION (REFER TO SMARTSET #6804) 1970 Hepatitis B (1 of 3 - 3-dose series) 1970 COVID-19 Vaccine (#1) 1970 Depression Screening 1980 HIV Screening 05/11/1983 Diabetic Foot Exam 1986 Hepatitis C Screening 1986 HPV/Co-Test 1998 Mammogram 2008 05/18/2006 Cervical Cancer Screening 05/12/2009 Pap Smear 05/12/2009 05/12/2006, 04/16, 04/21/2005, Additional history exists Cologuard 2013 Colonoscopy 2013 Colorectal Cancer Screening 2013 Fecal Occult Blood Test 2013 Sigmoidoscopy 2013 Zoster Vaccines (1 of 2) 2018 HbA1c 06/18/2023 12/18/2022, 12/07/2022 GFR 12/19/2023 12/18/2022, 11/16, 08/09/2000 Albumin/Creatinine Ratio 01/27/2024 01/26/2023 Diabetic Eye Exam 01/27/2024 01/26/2023 DTaP,Tdap,and Td Vaccines (2 - Td or Tdap) 01/26/2033 01/26/2023 Influenza Vaccine (FLU shot) Completed 12/18/2022, 11/28/2018 Pneumococcal Vaccine: Pediatrics (0 to 5 Years) and At-Risk Patients (6 to 64 Years) Completed 01/26/2023 GARDASIL-HPV IMMUNIZATION SERIES Aged Out No longer eligible based on patient's age to complete this topic MENINGOCOCCAL (MENACTRA/MENVEO) Aged Out No longer eligible based on patient's age to complete this topic documented as of this encounter Medical Devices Not on filedocumented as of this encounter Procedures Procedure Name Priority Date/Time Associated Diagnosis Comments OUTSIDE LAB RESULTS 11/26/2022 documented in this encounter Results * OUTSIDE LAB RESULTS (11/26/2022) 11/26/2022 No Physician Data Unknown LABORATORY documented in this encounter Care Teams Tax Technician Relationship Specialty Start Date End Date Josefina Guajardo MD [address] [place] [address] JEAN Fuller [phone] PCP - General Family Medicine 12/18/22 documented as of this encounter
--- OUTSIDE RECORDS SUMMARY | 2023-05-20 04:30 | External Medical Summary | Summary of Care ---
Author Name Unknown Organization [facility] Address [address] [place] [address] Phone [phone] Care Team Providers Care Commercial Installer Name Role Phone Josefina Guajardo MD Primary Care Prov ider Reason for Visit * Reason Onset Date Comments Health Maintenance 12/25/2022 Encounter Details Date Type Department Care Team (Late st Contact Info) Description 12/25/2022 Telephone Family Medicine [address] [phone] Josefina Guajardo MD [address] [place] [address] Health Maintenance Allergies No known active allergiesdocumented as of this encounter (statuses as of 12/25/2022) Medications Medication Sig Dispensed Refills Start Date End Date Status Venlafaxine HCl ER 150 MG Oral Capsule Extended Release 24 Hour (Effexor XR) 1 Capsule. 0 12/07/2022 Active Apixaban Starter Pack 5 MG Oral Tablet Therapy Pack (Eliquis) 5 mg. 0 12/11/2022 Ac tive Buprenorphine HCl-Naloxone HCl 8-2 MG Sublingual Tablet Sublingual (Suboxone) 1 Tablet. 0 12/07/2022 Act karsten Zoster Vac Recomb Adjuvanted 50 MCG/0.5ML Intramuscular Suspension Reconstituted (Shingrix)Indications: Need for prophylactic vaccination and inoculation against influenza Inject 0.5 mL into a large muscle now and repeat dose in 60 to 180 days 1 Each 1 12/18/2022 Active metFORMIN HCl ER 500 MG Oral Tablet Extended Release 24 Hour (Glucophage XR)Indications:Type 2 diabetes mellitus with hemoglobin A1c goal of less than 7.0% (HCC) Take 1 Tablet by mouth in the morning. 90 Tablet 3 12/18/2022 Active Atorvastatin Calcium 10 MG Oral Tablet (Lipitor)Indications:A SCVD (arteriosclerotic cardiovascular disease) Take 1 Tablet by mouth in the morning. 30 Tablet 5 12/18/2022 Active Ciprofloxacin HCl 500 MG Oral Tablet (Cipro)Indications:Agata lulitis of left lower extremity,Cellulitis of right lower extremity Take 1 Tablet by mouth in the morning and 1 Tablet before bedtime. Do all this for 14 days. 28 Tablet 0 12/18/2022 01/01/2023 Active documented as of this encounter (statuses as of 12/25/2022) Active Problems Problem Noted Date Diagnosed Date Lower leg DVT (deep venous thromboembolism), acu te, right 12/18/2022 Type 2 diabetes mellitus wit h hemoglobin A1c goal of less than 7.0% 12/18/2022 ASCVD (arteriosclerotic cardiovascular disease) 12/18/2022 ADVANCE DIRECTIVE INFORMATION 04/21/2005 Overview: No, Advance Directive brochure offered , patient declined. Tobacco use disorder 03/07/2003 documented as of this encounter (statuses as of 12/25/2022) Immunizations Name Administration Dates Next Due SEASONAL INFLUENZA, PF, 6 M & Above, IM , (FLULAVAL or FLUZONE) 12/18/2022 documented as of this encounter Social History Tobacco Use Types Packs/Day Years Used Date Smoking Tobacco: Every Day Cigarettes 1 10 Smokeless Tobacco: Never Alcohol Use Standard Drinks/Week Comments Yes 0 (1 standard drink = 0.6 oz pur e alcohol) Sex and Gender Information Value Date Recorded Sex Assigned at Not on file Gender Identity Not on file Sexual Orientation Not on file Job Start Date Occupation Industry Not on file Not on file Not on file documented as of this encounter Miscellaneous Notes * Telephone Encounter - Ruel AlfredoDENAE barnes - 12/25/2022 9:14 AM EST Care Gaps Comprehensive Care Outreach Last Office/Telemedicine Visit: 12/18/2022 (in office), Visit date not found (telemedicine) Next Office Visit: 12/25/2022 Hemoglobin AIC Results: Lab Results Component Value Date/Time HEMOGLOBIN A1C - [facility] 6.1 (H) 12/18/2022 02:12 PM Reviewed Health Maintenance below: Health Maintenance Topic Date Due Hepatitis B (1 of 3 - 3-dose series) Never done DISCUSS TOBACCO CESSATION (REFER TO SMARTSET #8088) Never done COVID-19 Vaccine (1) Never done Pneumococcal Vaccine: Pediatrics (0 to 5 Years) and At-Risk Patients (6 to 64 Years) (1 - PCV) Never done Depression Screening Never done HIV Screening Never done Diabetic Eye Exam Never done Albumin/Creatinine Ratio Never done Diabetic Foot Exam Never done Hepatitis C Screening Never done DTaP,Tdap,and Td Vaccines (1 - Tdap) Never done Mammogram 2008 Cervical Cancer Screening 05/12/2009 Colorectal Cancer Screening Never done Zoster Vaccines (1 of 2) Never done Pcp today Care Gap Outreach Action Taken: Outreach not indicated documented in this encounter Plan of Treatment Upcoming Encounters Date Type Department Care Team (Late st Contact Info) Description 12/25/2022 1:40 PM EST Office Visit Family Medicine [address] [phone] Josefina Guajardo MD [address] [place] [address] [place] [address] Health Maintenance Due Date Last Done Comments DISCUSS TOBACCO CESSATION (REFER TO SMARTSET #8441) 1970 Hepatitis B (1 of 3 - 3-dose series) 1968 COVID-19 Vaccine (#1) 1968 Pneumococcal Vaccine: Pediatrics (0 to 5 Years) and At-Risk Patients (6 to 64 Years) (1 - PCV) 1974 Depression Screening 1980 HIV Screening 05/11/1983 Albumin/Creatinine Ratio 1986 Diabetic Eye Exam 1986 Diabetic Foot Exam 1986 Hepatitis C Screening 1986 DTaP,Tdap,and Td Vaccines (1 - Tdap) 05/11/1987 HPV/Co-Test 1998 Mammogram 2008 05/18/2006 Cervical Cancer Screening 05/12/2009 Pap Smear 05/12/2009 05/12/2006, 04/16, 04/21/2005, Additional history exists Cologuard 2013 Colonoscopy 2013 Colorectal Cancer Screening 2013 Fecal Occult Blood Test 2013 Sigmoidoscopy 2013 Zoster Vaccines (1 of 2) 2018 HbA1c 06/18/2023 12/18/2022, 12/07/2022 GFR 12/19/2023 12/18/2022, 11/16, 08/09/2000 Influenza Vaccine (FLU shot) Completed 12/18/2022, 11/28/2018 GARDASIL-HPV IMMUNIZATION SERIES Aged Out No longer eligible based on patient's age to complete this topic MENINGOCOCCAL (MENACTRA/MENVEO) Aged Out No longer eligible based on patient's age to complete this topic documented as of this encounter Medical Devices Not on filedocumented as of this encounter Care Teams Commercial Installer Relationship Specialty Start Date End Date Josefina Guajardo MD [address] [place] [address] [place] [id number] PCP - General Family Medicine 12/18/22 documented as of this encounter
--- OUTSIDE RECORDS SUMMARY | 2023-05-20 04:30 | External Medical Summary | Summary of Care ---
Author Name Unknown Organization [facility] Address [address] [place] [address] Phone [phone] Care Team Providers Care Bush And Vine Farmer Fruit Crops Name Role Phone Josefina Guajardo MD Primary Care Prov ider Reason for Visit * Reason Onset Date Comments Medication Refill 01/11/2023 Encounter Details Date Type Department Care Team (Late st Contact Info) Description 01/11/2023 Telephone Family Medicine [address] [phone] Josefina Guajardo MD [address] [place] [address] Medication Refill Allergies No known active allergiesdocumented as of this encounter (statuses as of 01/12/2023) Medications Medication Sig Dispensed Refills Start Date End Date Status Venlafaxine HCl ER 150 MG Oral Capsule Extended Release 24 Hour (Effexor XR) 1 Capsule. 0 12/07/2022 Active Buprenorphine HCl-Naloxone HCl 8-2 MG Sublingual Tablet Sublingual (Suboxone) 1 Tablet. 0 12/07/2022 Active Zoster Vac Recomb Adjuvanted 50 MCG/0.5ML Intramuscular Suspension Reconstituted (Shingrix)Indication s:Need for prophylactic vaccination and inoculation against influenza [...] Active Atorvastatin Calcium 10 MG Oral Tablet (Lipitor)Indications :ASCVD (arteriosclerotic cardiovascular disease) Take 1 Tablet by mouth in the morning. 30 Tablet 5 12/18/2022 Active Apixaban 5 MG Oral Tablet (Eliquis) Take 1 Tablet by mouth in the morning and 1 Tablet before bedtime. 60 Tablet 3 01/12/2023 4 Active Apixaban Starter Pack 5 MG Oral Tablet Therapy Pack (Eliquis) 5 mg. 0 12/11/2022 3 Discontinued documented as of this encounter (statuses as of 01/12/2023) Active Problems Problem Noted Date Diagnosed Date [...] as of this encounter (statuses as of 01/12/2023) Immunizations Name Administration Dates Next Due SEASONAL [...] encounter Miscellaneous Notes * Telephone Encounter - Brandie Philip LPN - 01/12/2023 9:21 AM EST Eliquis starter pack 5mg without instructions on med list historically. Please see the appropriate Eliquis. * Telephone Encounter - Kassandra Whitfield CPhT - 01/11/2023 3:02 PM EST Pt is low on medication pt calling requesting the following medication below that is listed as "Historical". The following information was provided: Medication Name: eliquis Strength: 5mg Directions: take 1 tablet in the morning and 1 tablet in the evening Preferred Quantity: 180 Previous Prescriber: Preferred Pharmacy: [facility] [place] Please review and approve if appropriate. Thank you, Kassandra Whitfield CPhT II Treatment Technician [facility] ([facility] (Former[facility]) 01/11/2023, 3:03 PM documented in this encounter Plan of Treatment Upcoming Encounters Date Type Department Care Team (Late st Contact Info) Description 01/26/2023 2:00 PM EST Office Visit Family Medicine [address] [phone] Josefina Guajardo MD [address] [place] [address] [place] [address] Health Maintenance Due Date Last Done Comments DISCUSS TOBACCO CESSATION (REFER TO SMARTSET #[id number]) 1968 Hepatitis B (1 of 3 - [...] filedocumented as of this encounter Care Teams Bush And Vine Farmer Fruit Crops Relationship Specialty Start Date End Date Josefina Guajardo MD [address] [place] [address] [place] [id number] PCP - General Family Medicine 12/18/22 documented as of this encounter
--- OUTSIDE RECORDS SUMMARY | 2023-05-20 04:30 | External Medical Summary | Summary of Care ---
Author Name Unknown Organization [facility] Address [address] [place] [address] Phone [phone] Care Team Providers Care Night Warehouse Manager Name Role Phone Josefina Guajardo MD Primary Care Prov ider Reason for Visit * Reason Comments Outpatient Testing Encounter Details Date Type Department Care Team (Late st Contact Info) Description 12/18/2022 2:10 PM EDT Laboratory Laboratory [address] [place] [phone] [place], Lab [address] [place] [address] ASCVD (arteriosclerotic cardiovascular disease); Type 2 diabetes mellitus with hemoglobin A1c goal of less than 7.0% ([facility]); Cellulitis of left lower extremity; Cellulitis of right lower extremity Allergies No known active allergiesdocumented as of this encounter (statuses as of 12/18/2022) Medications Medication Sig Dispensed Refills Start Date End Date Status Venlafaxine HCl ER 150 MG Oral Capsule Extended Release 24 Hour (Effexor XR) 1 Capsule. 0 12/07/2022 Active Apixaban Starter Pack 5 MG Oral Tablet Therapy Pack (Eliquis) 5 mg. 0 12/11/2022 Active Buprenorphine HCl-Naloxone HCl 8-2 MG Sublingual Tablet Sublingual (Suboxone) 1 Tablet. 0 12/07/2022 Act karsten Zoster Vac Recomb Adjuvanted 50 MCG/0.5ML Intramuscular Suspension Reconstituted (Shingrix)Indications :Need for prophylactic vaccination and inoculation against influenza Inject 0.5 mL into a large muscle now and repeat dose in 60 to 180 days 1 Each 1 12/18/2022 Active Ebssxec-Kkqjdx-Hboml Pertussis 5-2.5-18.5 LF-MCG/0.5 Suspension Prefilled Syringe (Boostrix)Indications :Need for prophylactic vaccination and inoculation against influenza Inject 0.5 mL into a large muscle once for 1 dose. As directed 0.5 mL 0 12/18/2022 12/18/2022 Active metFORMIN HCl ER 500 MG Oral Tablet Extended Release 24 Hour (Glucophage XR)Indications:Type 2 diabetes mellitus with hemoglobin A1c goal of less than 7.0% (HCC) Take 1 Tablet by mouth in the morning. 90 Tablet 3 12/18/2022 Active Atorvastatin Calcium 10 MG Oral Tablet (Lipitor)Indications: ASCVD (arteriosclerotic cardiovascular disease) Take 1 Tablet by mouth in the morning. 30 Tablet 5 12/18/2022 Active Ciprofloxacin HCl 500 MG Oral Tablet (Cipro)Indications:Ce llulitis of left lower extremity,Cellulitis of right lower extremity Take 1 Tablet by mouth in the morning and 1 Tablet before bedtime. Do all this for 14 days. 28 Tablet 0 12/18/2022 01/01/2023 Active documented as of this encounter (statuses as of 12/18/2022) Active Problems Problem Noted Date Diagnosed Date Lower leg DVT (deep venous thromboembolism), acu te, right 12/18/2022 Type 2 diabetes mellitus wit h hemoglobin A1c goal of less than 7.0% 12/18/2022 ASCVD (arteriosclerotic cardiovascular disease) 12/18/2022 ADVANCE DIRECTIVE INFORMATION 04/21/2005 Overview: No, Advance Directive brochure offered , patient declined. Tobacco use disorder 03/07/2003 documented as of this encounter (statuses as of 12/18/2022) Immunizations Name Administration Dates Next Due SEASONAL [...] 1:40 PM EST Office Visit Family Medicine [address] [place] [phone] Josefina Guajardo MD [address] [place] [address] [place] [phone] Pending Results Name Type Priority Associated Diagnoses Date /Time LIPID PANEL WITH DIRECT LDL IF TG IS HIGH Lab Routine ASCVD (arteriosclerotic cardiovascular disease) 12/18/2022 2:12 PM EDT HEMOGLOBIN A1C Lab Routine Type 2 diabetes mellitus with hemoglobin A1c goal of less than 7.0% ([facility]) 12/18/2022 2:12 PM EDT BASIC METABOLIC PANEL Lab Routine Type 2 diabetes mellitus with hemoglobin A1c goal of less than 7.0% (HCC) 12/18/2022 2:12 PM EDT CRP (INFLAMMATORY MARKER) Lab Routine Cellulitis of left lower extremity Cellulitis of right lower extremity 12/18/2022 2:12 PM EDT CBC WITH WBC DIFFERENTIAL Lab Routine Cellulitis of left lower extremity Cellulitis of right lower extremity 12/18/2022 2:12 PM EDT CBC Lab Routine Cellulitis of left lower extremity Cellulitis of right lower extremity 12/18/2022 2:12 PM EDT DIFFERENTIAL, AUTOMATED Lab Routine Cellulitis of left lower extremity Cellulitis of right lower extremity 12/18/2022 2:12 PM EDT Health Maintenance Due Date Last Done Comments DISCUSS TOBACCO CESSATION (REFER TO SMARTSET #7863) 1970 Hepatitis B (1 of 3 - [...] Zoster Vaccines (1 of 2) 2018 HbA1c 06/08/2023 12/07/2022 GFR 12/11/2023 12/10/2022, 08/09/2000 Influenza Vaccine (FLU shot) Completed 12/18/2022, 11/28/2018 GARDASIL-HPV IMMUNIZATION SERIES Aged Out No longer eligible based on patient's age to complete this topic MENINGOCOCCAL (MENACTRA/MENVEO) Aged Out No longer eligible based on patient's age to complete this topic documented as of this encounter Medical Devices Not on filedocumented as of this encounter Visit Diagnoses Diagnosis ASCVD (arteriosclerotic cardiovascular disease) Unspecified cardiovascular disease Type 2 diabetes mellitus with hemoglobin A1c goal of less than 7.0% (HCC) Cellulitis of left lower extremity Cellulitis and abscess of leg, except foot Cellulitis of right lower extremity Cellulitis and abscess of leg, except foot documented in this encounter Care Teams Night Warehouse Manager Relationship Specialty Start Date End Date Josefina Guajardo MD [address] [place] [address] [place] [id number] PCP - General Family Medicine 12/18/22 documented as of this encounter
--- OUTSIDE RECORDS SUMMARY | 2023-05-20 04:30 | External Medical Summary | Summary of Care ---
Author Name Unknown Organization [facility] Address [address] [place] [address] Phone [phone] Care Team Providers Care Stenographer Secretary Name Role Phone Josefina Guajardo MD Primary Care Prov ider Reason for Visit * Reason Onset Date Comments Advice 12/22/2022 Encounter Details Date Type Department Care Team (Late st Contact Info) Description 12/22/2022 Telephone Family [address] [phone] Josefina Guajardo MD [address] [place] [address] [place] [address] Advice Allergies No known active allergiesdocumented as of [...] encounter Miscellaneous Notes * Telephone Encounter - Naomi Pacheco LPN - 12/25/2022 1:57 PM EST Pt here today for apt and stated she only made apt with Janna Reed at [facility] because that was where her last PCP was located. She is going to stay established with [facility] and cancel all apt with [facility] Record release faxed today * Telephone Encounter - Ara Pate RN - 12/23/2022 4:27 PM EST We will check with patient at her appt on Wednesday * Telephone Encounter - Josefina Guajardo MD - 12/22/2022 5:06 PM EST I dont know - please call patient to ask * Telephone Encounter - Ara Pate RN - 12/22/2022 4:43 PM EST Josefina, you saw this pt for hospital follow up, and you have her coming for follow up on Wednesday. Is she transferring to you? Dariusz morataya she is also seeing another PCP Dr Reed * Telephone Encounter - Karley Oviedo OSA - 12/22/2022 4:23 PM EST Calvin calling from Dr. Reed's office to see if the pt is going to be transferring into the careof [facility]. They just saw the pt and the pt also has an upcoming appt with them but they receivedthe request for some medical testing from PCP office. Is the pt establishing and continuing care with [facility] and if so they will need a medical release form to be able to send any medical records.Please fax release [phone] documented in this encounter Plan of Treatment Upcoming Encounters Date Type Department Care Team (Late st Contact Info) Description 01/26/2023 2:00 PM EST Office Visit Family Medicine [address] [phone] Josefina Guajardo MD [address] [place] [address] [place] [id number] Health Maintenance Due Date Last Done Comments DISCUSS TOBACCO CESSATION (REFER TO SMARTSET #1239) 1970 Hepatitis B (1 of 3 - [...] filedocumented as of this encounter Care Teams Stenographer Secretary Relationship Specialty Start Date End Date Josefina Guajardo MD [address] [place] [address] [place] [phone] PCP - General Family Medicine 12/18/22 documented as of this encounter
--- OUTSIDE RECORDS SUMMARY | 2023-05-20 04:30 | External Medical Summary | Summary of Care ---
Author Name Unknown Organization [facility] Address [address] [place] [address] Phone [phone] Care Team Providers Care Latex Thread Machine Operator Name Role Phone Josefina Guajardo MD Primary Care Prov ider Reason for Visit * Reason Comments Acute Encounter Details Date Type Department Care Team (Late st Contact Info) Description 05/12/2023 10:30 AM EDT Office Visit Family Medicine [address] [phone] Josefina Guajardo MD [address] [place], [place] [address] [address] Cellulitis of right lower extremity*; Type 2 diabetes mellitus with hemoglobin A1c goal of less than 7.0% (HCC); Pain of right lower extremity; History of deep venous thrombosis (DVT) of distal vein of right lower extremity Allergies No known active allergiesdocumented as of this encounter (statuses as of 05/12/2023) Medications Medication Sig Dispensed Refills Start Date [...] the morning. 90 Tablet 3 12/18/2022 Active Apixaban 5 MG Oral Tablet (Eliquis) Take 1 Tablet by mouth in the morning and 1 Tablet before bedtime. 60 Tablet 3 01/12/2023 05/12/2023 Active Atorvastatin Calcium 20 MG Oral Tablet (Lipitor)Indications:A SCVD (arteriosclerotic cardiovascular disease) Take 1 Tablet by mouth in the morning. 90 Tablet 3 01/26/2023 Active Ciprofloxacin HCl 500 MG Oral Tablet (Cipro)Indications:Agata lulitis of right lower extremity Take 1 Tablet by mouth in the morning and 1 Tablet before bedtime. Do all this for 10 days. 20 Tablet 0 05/12/2023 05/22/2023 Active documented as of this encounter (statuses as of 05/12/2023) Active Problems Problem Noted Date Diagnosed Date Type 2 diabetes mellitus wit h hemoglobin A1c goal of less than 7.0% 12/18/2022 ASCVD (arteriosclerotic cardiovascular disease) 12/18/2022 ADVANCE DIRECTIVE INFORMATION 04/21/2005 Overview: No, Advance Directive brochure offered , patient declined. Tobacco use disorder 03/07/2003 documented as of this encounter (statuses as of 05/12/2023) Resolved Problems Problem Noted Date Diagnosed Date Resolved Date Opioid dependence, in remission 12/25/2022 05/12/2023 Lower leg DVT (deep venous t hromboembolism), acute, right 12/18/2022 05/12/2023 documented as of this encounter (statuses as of 05/12/2023) Immunizations Name Administration Dates Next Due Pneumococcal Conjugate Vaccine, 20-valent (Prevn ar20) 01/26/2023 Seasonal Influenza, PF, 6 M & above, IM , (FluLaval or Fluzone) 12/18/2022 TDAP (age 10 and older)(Boostrix) 01/26/2023 documented as of this encounter Social History Tobacco Use Types Packs/Day Years Used Date Smoking Tobacco: Every Day Cigarettes 1 10 Smokeless Tobacco: Never Tobacco Cessation:Ready to Q uit: Not Asked; Counseling Given: Not Answered Alcohol Use Standard Drinks/Week Comments Yes 0 (1 standard drink = 0.6 oz pur e alcohol) Sex and Gender Information Value Date Recorded Sex Assigned at Not on file Gender Identity Not on file Sexual Orientation Not on file Job Start Date Occupation Industry Not on file Not on file Not on file documented as of this encounter Last Filed Vital Signs Vital Sign Reading Time Taken Comments Blood Pressure 120/60 05/12/2023 11:05 AM EDT Pulse 103 05/12/2023 11:05 AM EDT Temperature 36.9 C (98.5 F) 05/12/2023 11:05 AM E DT Respiratory Rate - - Oxygen Saturation 95% 05/12/2023 11:05 AM EDT Inhaled Oxygen Concentration - - Weight 93 kg (205 lb) 05/12/2023 11:05 AM EDT Height - - Body Mass Index 35.19 12/18/2022 1:40 PM EDT documented in this encounter Progress Notes * Josefina Guajardo MD - 05/12/2023 12:11 PM EDT Images from the original note were not included. Subjective Rema Styles is a 53 year old female. Chief Complaint Patient presents with Acute HPI: Acute swollen right lower leg. H/o right calf DVT and severe cellulitis in Nov/dec 2022 showing pseudomonas/MSSA on culture. Prolonged treatment in wound clinic. On eliquis now. Not missing doses. Was much improved until yesterday, the right calf became more swollen and red. Painful. No fevers or chills, no drainage, skin feels tight. PMH: Patient Active Problem List Diagnosis Code Tobacco use disorder F17.200 ADVANCE DIRECTIVE INFORMATION Type 2 diabetes mellitus with hemoglobin A1c goal of less than 7.0% (HCC) E11.9 ASCVD (arteriosclerotic cardiovascular disease) I25.10 Current Outpatient Medications Medication Sig Dispense Refill Venlafaxine HCl ER 150 MG Oral Capsule Extended Release 24 Hour (Effexor XR) 1 Capsule. Buprenorphine HCl-Naloxone HCl 8-2 MG Sublingual Tablet Sublingual (Suboxone) 1 Tablet. Zoster Vac Recomb Adjuvanted 50 MCG/0.5ML Intramuscular Suspension Reconstituted (Shingrix) Inject 0.5 mL into a large muscle now and repeat dose in 60 to 180 days 1 Each 1 metFORMIN HCl ER 500 MG Oral Tablet Extended Release 24 Hour (Glucophage XR) Take 1 Tablet by mouthin the morning. 90 Tablet 3 Apixaban 5 MG Oral Tablet (Eliquis) Take 1 Tablet by mouth in the morning and 1 Tablet before bedtime. 60 Tablet 3 Atorvastatin Calcium 20 MG Oral Tablet (Lipitor) Take 1 Tablet by mouth in the morning. 90 Tablet 3 Ciprofloxacin HCl 500 MG Oral Tablet (Cipro) Take 1 Tablet by mouth in the morning and 1 Tablet before bedtime. Do all this for 10 days. 20 Tablet 0 No current facility-administered medications for this visit. Review of patient's allergies indicates: No Known Allergies Objective BP 120/60 | Pulse 103 | Temp 36.9 C (98.5 F) (Tympanic) | Wt 93 kg (205 lb) | SpO2 95% | BMI 35.19 kg/m | BSA 2.05 m ASSESSMENT/PLAN: Cellulitis of right lower extremity (Primary) - Ciprofloxacin HCl 500 MG Oral Tablet (Cipro); Take 1 Tablet by mouth in the morning and 1 Tabletbefore bedtime. Do all this for 10 days. Type 2 diabetes mellitus with hemoglobin A1c goal of less than 7.0% ([facility]) - HEMOGLOBIN A1C; Future; Expected date: 05/12/2023 Pain of right lower extremity - VASC DUPLEX VENOUS LE UNILAT - CBC WITH WBC DIFFERENTIAL; Future; Expected date: 05/12/2023 - BASIC METABOLIC PANEL; Future; Expected date: 05/12/2023 - PT INR; Future; Expected date: 05/12/2023 - CRP (INFLAMMATORY MARKER); Future; Expected date: 05/12/2023 History of deep venous thrombosis (DVT) of distal vein of right lower extremity Duplex done today shows popliteal thrombus, non-occluding, no extension proximally. + enlarged lymph node in the groin. C/w cellulitis. STart cipro, continue eliquis. Arrange close follow up 45 mins spent with patient > 50% counselling and coordinating care. Josefina Lewis MD documented in this encounter Nursing Notes * Naomi Pacheco LPN - 05/12/2023 11:04 AM EDT Chief Complaint Patient presents with Acute Started yesterday Started to Notice painful, swollen, and discoloration. No drainage and no fevers Hx DVT and Cellulitis Wears compression stockings The patient has been properly identified by confirmation of name and date of . documented in this encounter Plan of Treatment Upcoming Encounters Date Type Department Care Team (Late st Contact Info) Description 05/19/2023 8:00 AM EDT Office Visit [address] [place] [phone] Rubina Pak PA-C [address] [place] [address] [place] [phone] 07/13/2023 9:20 AM EDT Office Visit [address] [place] [phone] Josefina Guajardo MD [address] [place] [address] [place] [phone] Pending Results Name Type Priority Associated Diagnoses Date /Time VASC DUPLEX VENOUS LE UNILAT Medical Imaging Routine Pain of right lower extremity 05/12/2023 12:25 PM EDT Scheduled Orders Name Type Priority Associated Diagnoses Orde r Schedule CBC WITH WBC DIFFERENTIAL Lab Routine Pain of right lower extremity Expected: 05/12/2023 (Approximate), Expires: 05/11/2024 BASIC METABOLIC PANEL Lab Routine Pain of right lower extremity Expected: 05/12/2023 (Approximate), Expires: 05/11/2024 PT INR Lab Routine Pain of right lower extremity Expected: 05/12/2023 (Approximate), Expires: 05/11/2024 CRP (INFLAMMATORY MARKER) Lab Routine Pain of right lower extremity Expected: 05/12/2023 (Approximate), Expires: 05/11/2024 HEMOGLOBIN A1C Lab Routine Type 2 diabetes mellitus with hemoglobin A1c goal of less than 7.0% (HCC) Expected: 05/12/2023 (Approximate), Expires: 05/11/2024 Health Maintenance Due Date Last Done Comments DISCUSS TOBACCO CESSATION (REFER TO SMARTSET #[id number]) 1968 Depression Screening 1980 HIV Screening 05/11/1983 Diabetic Foot Exam 1986 Hepatitis C Screening 1986 Hepatitis B (1 of 3 - 19+ 3-dose series) 05/11/1987 HPV/Co-Test 1998 Mammogram 2008 05/18/2006 Cervical Cancer Screening 05/12/2009 Pap Smear 05/12/2009 05/12/2006, 04/16, 04/21/2005, Additional history exists Cologuard 2013 Colonoscopy 2013 Colorectal Cancer Screening 2013 Fecal Occult Blood Test 2013 Sigmoidoscopy 2013 Zoster Vaccines (1 of 2) 2018 COVID-19 Vaccine ( - 2022- season) 2022 HbA1c 06/18/2023 12/18/2022, 12/07/2022 GFR 12/19/2023 12/18/2022, [...] as of this encounter Visit Diagnoses Diagnosis Cellulitis of right lower extremity- Primary Cellulitis and abscess of leg, except foot Type 2 diabetes mellitus with hemoglobin A1c goal of less than 7.0% (HCC) Pain of right lower extremity History of deep venous thrombosis (DVT) of distal vein of right lower extremity documented in this encounter Care Teams Latex Thread Machine Operator Relationship Specialty Start Date End Date Josefina Guajardo MD [address] [place] [address] [place] [phone] PCP - General Family Medicine 12/18/22 documented as of this encounter"
--- OUTSIDE RECORDS SUMMARY | 2023-05-20 04:30 | External Medical Summary | Summary of Care ---
Author Name Unknown Organization [facility] Address [address] [place] [address] Phone [phone] Care Team Providers Care Stitch Bonder Machine Operator Helper Name Role Phone Josefina Guajardo MD Primary Care Prov ider Reason for Visit * Reason Onset Date Comments Appointment 05/12/2023 Swollen Leg Encounter Details Date Type Department Care Team (Late st Contact Info) Description 05/12/2023 Telephone Family Medicine [address] [phone] Josefina Guajardo MD [address] [place] [address] Appointment (Swollen Leg) Allergies No known active allergiesdocumented as of [...] the morning. 90 Tablet 3 01/26/2023 Active documented as of this encounter (statuses [...] encounter Miscellaneous Notes * Telephone Encounter - Ara Pate RN - 05/12/2023 9:19 AM EDT Appt given for today, pt notified * Telephone Encounter - Ara Pate RN - 05/12/2023 9:14 AM EDT Do you want to work her in? Or have her go to Urgent Care? * Telephone Encounter - Candace Maddox OSA - 05/12/2023 8:48 AM EDT I called Rema to reschedule her 06.[address] Lewis. She said that her right leg is swollen and warm. There are no openings for today. Please advise. documented in this encounter Plan of Treatment Upcoming Encounters Date Type Department Care Team (Late st Contact Info) Description 05/12/2023 10:30 AM EDT Office Visit Family Medicine [address] [phone] Josefina Guajardo MD [address] [place] [address] [place] [phone] 07/13/2023 9:20 AM EDT Office Visit Family [address] [phone] Josefina Guajardo MD [address] [place] [address] [place] [phone] Health Maintenance Due Date Last Done Comments DISCUSS TOBACCO CESSATION (REFER TO SMARTSET #1989) 1968 Depression Screening 1980 HIV Screening 05/11/1983 [...] Vaccines (1 of 2) 2018 COVID-19 Vaccine (1 - season) 2022 HbA1c 06/18/2023 12/18/2022, 12/07/2022 GFR [...] filedocumented as of this encounter Care Teams Stitch Bonder Machine Operator Helper Relationship Specialty Start Date End Date Josefina Guajardo MD [address] [place] [address] [place] [phone] PCP - General Family Medicine 12/18/22 documented as of this encounter
--- OUTSIDE RECORDS SUMMARY | 2023-05-20 04:30 | External Medical Summary | Summary of Care ---
Author Name Unknown Organization [facility] Address [address] [place] [address] Phone [phone] Care Team Providers Care Data Analyst Etl Developer Name Role Phone Josefina Guajardo MD Primary Care Prov ider Reason for Visit * Reason Comments Follow Up 4 week f/u Encounter Details Date Type Department Care Team (Latest Contact Info) Description 01/26/2023 2:00 PM EST Office Visit Family Medicine [address] [phone] Josefina Guajardo MD [address] [place] [address] [place] [address] Cellulitis of right lower extremity*; Cellulitis of left lower extremity; Type 2 diabetes mellitus with hemoglobin A1c goal of less than 7.0% (HCC); ASCVD (arteriosclerotic cardiovascular disease); Need for jkngundlom-fjzcfpb-pfdd ussis (Tdap) vaccine; Need for pneumococcal 20-valent conjugate vaccination Allergies No known active allergiesdocumented as of this encounter (statuses as of 01/26/2023) Medications Medication Sig Dispensed Refills Start Date [...] Active Atorvastatin Calcium 20 MG Oral Tablet (Lipitor)Indications :ASCVD (arteriosclerotic cardiovascular disease) Take 1 Tablet by mouth in the morning. 90 Tablet 3 01/26/2023 Active Atorvastatin Calcium 10 MG Oral Tablet (Lipitor)Indications :ASCVD (arteriosclerotic cardiovascular disease) Take 1 Tablet by mouth in the morning. 30 Tablet 5 12/18/2022 01/26/2023 Discontinue d(Refill) documented as of this encounter (statuses as of 01/26/2023) Active Problems Problem Noted Date Diagnosed Date [...] as of this encounter (statuses as of 01/26/2023) Immunizations Name Administration Dates Next Due Pneumococcal [...] Sign Reading Time Taken Comments Blood Pressure 112/70 01/26/2023 2:11 PM EST Pulse 101 01/26/2023 2:11 PM EST Temperature 36.2 C (97.1 F) 01/26/2023 2:11 PM ES T Respiratory Rate - - Oxygen Saturation 96% 01/26/2023 2:11 PM EST Inhaled Oxygen Concentration - - Weight 89.6 kg (197 lb 8 oz) 01/26/2023 2:11 PM EST Height - - Body Mass Index 33.9 12/18/2022 1:40 PM EDT documented in this encounter Progress Notes * Josefina Guajardo MD - 01/26/2023 2:15 PM EST Subjective Rema Styles is a 52 year old female. Chief Complaint Patient presents with Follow Up 4 week f/u HPI: Follow up bilat LE cellulitis with large wounds. Has established with wound clinic. Doing daily aquacel ag. Has started metformin and lipitor. Woundhas closed in left leg and much improved in the right. No fevers, chills or pain. Tolerating metformin and lipitor without AE. Denies fevers, chills, n/v/d. PMH: Patient Active Problem List Diagnosis Code Tobacco use disorder F17.200 ADVANCE DIRECTIVE INFORMATION Lower leg DVT (deep venous thromboembolism), acute, right ([facility]) I82.4Z1 Type 2 diabetes mellitus with hemoglobin A1c goal of less than 7.0% ([facility]) E11.9 ASCVD (arteriosclerotic cardiovascular disease) I25.10 Opioid dependence, in remission ([facility]) F11.21 Current Outpatient Medications Medication Sig Dispense Refill Atorvastatin Calcium 20 MG Oral Tablet (Lipitor) Take 1 Tablet by mouth in the morning. 90 Tablet 3 Venlafaxine HCl ER 150 MG Oral Capsule [...] 1 Tablet before bedtime. 60 Tablet 3 No current facility-administered medications for this visit. Review of patient's allergies indicates: No Known Allergies Objective BP 112/70 | Pulse 101 | Temp 36.2 C (97.1 F) (Tympanic) | Wt 89.6 kg (197 lb 8 oz) | SpO2 96% |BMI 33.90 kg/m | BSA 2.01 m Bilat LE with dressing wraps that are clean and dry; right calf larger than left (h/o DVT) ASSESSMENT/PLAN: Cellulitis of right lower extremity (Primary) - TDAP (AGE 10 AND OLDER)(BOOSTRIX) Cellulitis of left lower extremity - TDAP (AGE 10 AND OLDER)(BOOSTRIX) Type 2 diabetes mellitus with hemoglobin A1c goal of less than 7.0% ([facility]) - COMPREHENSIVE METABOLIC PANEL; Future; Expected date: 04/27/2023 - HEMOGLOBIN A1C; Future; Expected date: 04/27/2023 - ALBUMIN / CREATININE RATIO, URINE; Future; Expected date: 01/26/2023 - TELEMEDICINE DIABETIC EYE ASCVD (arteriosclerotic cardiovascular disease) - Atorvastatin Calcium 20 MG Oral Tablet (Lipitor); Take 1 Tablet by mouth in the morning. - LDL CHOLESTEROL (DIRECT MEASURE); Future; Expected date: 04/27/2023 Need for rfheftosrv-gkdthzk-uonmblygj (Tdap) vaccine - TDAP (AGE 10 AND OLDER)(BOOSTRIX) Need for pneumococcal 20-valent conjugate vaccination - PNEUMOCOCCAL VACC, PCV20, IM ([id number]) Continue antibiotics and wound care Follow up in 1 month Follow Up: Return in about 3 months (around 04/27/2023) for Return with Physician, Clinic Visit. | For: Return with Physician, Clinic Visit Josefina Lewis MD documented in this encounter Nursing Notes * Naomi Pacheco LPN - 01/26/2023 2:11 PM EST Chief Complaint Patient presents with Follow Up 4 week f/u Right Lower Leg Still going to [facility] The patient has been properly identified by confirmation of name and date of . documented in this encounter Plan of Treatment Upcoming Encounters Date Type Department Care Team (Late st Contact Info) Description 06/16/2023 3:00 PM EDT Office Visit Family Medicine [address] [place] [phone] Josefina Guajardo MD [address] [place] [address] [place] [phone] Pending Results Name Type Priority Associated Diagnoses Date /Time ALBUMIN / CREATININE RATIO, URINE Lab Routine Type 2 diabetes mellitus with hemoglobin A1c goal of less than 7.0% (HCC) 01/26/2023 2:54 PM EST Scheduled Orders Name Type Priority Associated Diagnoses Orde r Schedule COMPREHENSIVE METABOLIC PANEL Lab Routine Type 2 diabetes mellitus with hemoglobin A1c goal of less than 7.0% (HCC) Expected: 04/27/2023 (Approximate), Expires: 01/26/2024 HEMOGLOBIN A1C Lab Routine Type 2 diabetes mellitus with hemoglobin A1c goal of less than 7.0% (HCC) Expected: 04/27/2023 (Approximate), Expires: 01/26/2024 LDL CHOLESTEROL (DIRECT MEASURE) Lab Routine ASCVD (arteriosclerotic cardiovascular disease) Expected: 04/27/2023 (Approximate), Expires: 01/26/2024 ALBUMIN / CREATININE RATIO, URINE Lab Routine Type 2 diabetes mellitus with hemoglobin A1c goal of less than 7.0% (HCC) Expected: 01/26/2023 (Approximate), Expires: 01/26/2024 Health Maintenance Due Date Last Done Comments DISCUSS TOBACCO CESSATION (REFER TO SMARTSET #[id number]) 1968 Hepatitis B (1 of 3 - 3-dose series) 1968 COVID-19 Vaccine (#1) 1968 Depression Screening 1980 HIV Screening 05/11/1983 Albumin/Creatinine Ratio 1986 Diabetic Foot Exam 1986 Hepatitis C Screening 1986 HPV/Co-Test 1998 Mammogram 2008 05/18/2006 Cervical Cancer Screening 05/12/2009 Pap Smear 05/12/2009 05/12/2006, 04/16, 04/21/2005, Additional history exists Cologuard 2013 Colonoscopy 2013 Colorectal Cancer Screening 2013 Fecal Occult Blood Test 2013 Sigmoidoscopy 2013 Zoster Vaccines (1 of 2) 2018 HbA1c 06/18/2023 12/18/2022, 12/07/2022 GFR 12/19/2023 12/18/2022, 11/16, 08/09/2000 Diabetic Eye Exam 01/27/2024 01/26/2023 DTaP,Tdap,and Td [...] Procedure Name Priority Date/Time Associated Diagnosis Comments TELEMEDICINE DIABETIC EYE Routine 01/26/2023 Type 2 diabetes mellitus with hemoglobin A1c goal of less than 7.0% ([facility]) documented in this encounter Results * TELEMEDICINE DIABETIC EYE (01/26/2023) 01/26/2023 Josefina Ross MD DIGITAL PH OTOGRAPHY documented in this encounter Visit Diagnoses Diagnosis Cellulitis of right lower extremity- Primary Cellulitis and abscess of leg, except foot Cellulitis of left lower extremity Cellulitis and abscess of leg, except foot Type 2 diabetes mellitus with hemoglobin A1c goal of less than 7.0% (HCC) ASCVD (arteriosclerotic cardiovascular disease) Unspecified cardiovascular disease Need for ldxmojtowa-vtqxbxd-afzmrqmgx (Tdap) vaccine Need for prophylactic vaccination with combined ftmmoilgca-spaxftt-agmclkrdx (DTP) vaccine Need for pneumococcal 20-valent conjugate vaccination documented in this encounter Care Teams Data Analyst Etl Developer Relationship Specialty Start Date End Date Josefina Guajardo MD [address] [place] [address] [place] [phone] PCP - General Family Medicine 12/18/22 documented as of this encounter"
--- OUTSIDE RECORDS SUMMARY | 2023-05-20 04:30 | External Medical Summary ---
Author Name Unknown Address Unknown Organization K01:[facility] [place] [facility] [place] [address] Laboratory Report Ordering Provider Test Date Status HIEU BRUNSON 01/26/2023 14:54:40 Final Normal: <30 mg/g creatinine< br/>High: 30-300 mg/g creatinine
Very High: >300 mg/g creatinine
Nephrotic: >2200 mg/g creatinine Observation Date Value Abnormality Reference (Units ) Status Albumin, Urine 01/26/2023 14:54:40 <1.20 (mg/dL) Final Creatinine, Urine 01/26/2023 14:54:40 93 (mg/dL) Final Albumin/Creatinine [Mass Ratio] in Urine 01/26/2023 14:54:40 <13 <30 (mg/g Creat) Final Performing Location [facility] [place] [address] [place] [address]
--- OUTSIDE RECORDS SUMMARY | 2023-05-20 04:30 | External Medical Summary | Summary of Care ---
Author Name Unknown Organization [facility] Address [address] [place] [address] Phone [phone] Care Team Providers Care Back Gray Cloth Washer Name Role Phone Josefina Guajardo MD Primary Care Prov ider Encounter Details Date Type Department Care Team (Late st Contact Info) Description 05/14/2023 Orders Only PATIENT PORTAL DO NOT DELETE THIS DEPT USED BY JEAN IBARRA [id number] Allergies No known active allergiesdocumented as of this encounter (statuses as of 05/14/2023) Medications Medication Sig Dispensed Refills Start Date [...] 90 Tablet 3 12/18/2022 Active Atorvastatin Calcium 20 MG Oral Tablet [...] as of this encounter (statuses as of 05/14/2023) Active Problems Problem Noted Date Diagnosed Date Type 2 diabetes mellitus wit h hemoglobin A1c goal of less than 7.0% 12/18/2022 ASCVD (arteriosclerotic cardiovascular disease) 12/18/2022 ADVANCE DIRECTIVE INFORMATION 04/21/2005 Overview: No, Advance Directive brochure offered , patient declined. Tobacco use disorder 03/07/2003 documented as of this encounter (statuses as of 05/14/2023) Resolved Problems Problem Noted Date Diagnosed Date Resolved Date Opioid dependence, in remission 12/25/2022 05/12/2023 Lower leg DVT (deep venous t hromboembolism), acute, right 12/18/2022 05/12/2023 documented as of this encounter (statuses as of 05/14/2023) Immunizations Name Administration Dates Next Due Pneumococcal [...] Description 05/19/2023 8:00 AM EDT Office Visit Family Medicine [address] [place] [phone] Rubina Pak PA-C [address] [place] [address] [place] [phone] 07/13/2023 9:20 AM EDT Office Visit Family Medicine [address] [place] [phone] Josefina Guajardo MD [address] [place] [address] [place] [phone] Health Maintenance Due Date Last Done Comments DISCUSS TOBACCO CESSATION (REFER TO SMARTSET #[id number]) 1968 Depression Screening 1980 HIV Screening 05/11/1983 [...] of 2) 2018 COVID-19 Vaccine ( - season) 2022 HbA1c 06/18/2023 12/18/2022, 12/07/2022 [...] filedocumented as of this encounter Care Teams Back Gray Cloth Washer Relationship Specialty Start Date End Date Josefina Guajardo MD [address] [place] [address] [place] [phone] PCP - General Family Medicine 12/18/22 documented as of this encounter
--- OUTSIDE RECORDS SUMMARY | 2023-05-20 04:30 | External Medical Summary | Summary of Care ---
Author Name Unknown Organization [facility] Address [address] [place] [address] Phone [phone] Care Team Providers Care Fig Washer Name Role Phone Josefina Guajardo MD Primary Care Prov ider Reason for Visit * Reason Comments Re-Check Encounter Details Date Type Department Care Team (Late st Contact Info) Description 05/19/2023 8:00 AM EDT Office Visit Family Medicine [address] [phone] Rubina Pak PA-C [address] [place] [address] [place] [address] Cellulitis of right lower leg* Allergies No known active allergiesdocumented as of this encounter (statuses as of 05/19/2023) Medications Medication Sig Dispensed Refills Start Date [...] as of this encounter (statuses as of 05/19/2023) Active Problems Problem Noted Date Diagnosed Date Type 2 diabetes mellitus wit h hemoglobin A1c goal of less than 7.0% 12/18/2022 ASCVD (arteriosclerotic cardiovascular disease) 12/18/2022 ADVANCE DIRECTIVE INFORMATION 04/21/2005 Overview: No, Advance Directive brochure offered , patient declined. Tobacco use disorder 03/07/2003 documented as of this encounter (statuses as of 05/19/2023) Resolved Problems Problem Noted Date Diagnosed Date Resolved Date Opioid dependence, in remission 12/25/2022 05/12/2023 Lower leg DVT (deep venous t hromboembolism), acute, right 12/18/2022 05/12/2023 documented as of this encounter (statuses as of 05/19/2023) Immunizations Name Administration Dates Next Due Pneumococcal [...] Sign Reading Time Taken Comments Blood Pressure 120/66 05/19/2023 8:13 AM EDT Pulse 103 05/19/2023 8:13 AM EDT Temperature 36 C (96.8 F) 05/19/2023 8:13 AM EDT Respiratory Rate 12 05/19/2023 8:13 AM EDT Oxygen Saturation - - Inhaled Oxygen Concentration - - Weight 99.4 kg (219 lb 3 oz) 05/19/2023 8:13 AM EDT Height - - Body Mass Index 37.62 12/18/2022 1:40 PM EDT documented in this encounter Progress Notes * Rubina Pak PA-C - 05/19/2023 8:16 AM EDT Nursing Notes: Krissy De Oliveira LPN 05/19/23 0813 Sign at exiting of workspace Recheck per Dr. GARG. States legs are worse. Pt here today for recheck of legs. Pt with cellulitis of bilateral LE - right is worse. Pt was hospitalized for this, in November. She required IV abxs. Wasn't able to be treated as an outpt. Culture grew pseudomonas and MSSA. Pt denies fever, chills. She feels ok. The swelling and redness is worse.She is taking the cipro with no relief. The swelling has gotten much worse and the redness has extended up the leg. Pt has one small open area that is draining. The drainage is clear. No purulent drainage. LLE is red and swollen as well, not nearly as severe as RLE. Review of patient's allergies indicates: No Known Allergies Current Outpatient Medications Medication Sig Dispense Refill [...] by mouthin the morning. 90 Tablet 3 Atorvastatin Calcium 20 MG Oral Tablet (Lipitor) Take 1 Tablet by mouth in the morning. 90 Tablet 3 Ciprofloxacin HCl 500 MG Oral Tablet (Cipro) Take 1 Tablet by mouth in the morning and 1 Tablet before bedtime. Do all this for 10 days. 20 Tablet 0 No current facility-administered medications for this visit. Past Medical History: Diagnosis Date H/O colonoscopy 11/29/2018 H/O mammogram 08/25/2022 Pap smear for cervical cancer screening 12/03/2021 Tobacco use disorder Social History Socioeconomic History Marital status: Single Spouse name: Not on file Number of children: Not on file Years of education: Not on file Highest education level: Not on file Occupational History Not on file Tobacco Use Smoking status: Every Day Current packs/day: 1.00 Average packs/day: 1 pack/day for 10.0 years (10.0 ttl pk-yrs) Types: Cigarettes Smokeless tobacco: Never Substance and Sexual Activity Alcohol use: Yes Drug use: No Sexual activity: Yes Partners: Male control/protection: Condom Other Topics Concern Not on file Social History Narrative Not on file Social Determinants of Health Financial Resource Strain: Not on file Food Insecurity: Not on file Transportation Needs: Not on file Physical Activity: Not on file Stress: Not on file Social Connections: Not on file Intimate Partner Violence: Not on file Housing Stability: Not on file O:Blood pressure 120/66, pulse 103, temperature 36 C (96.8 F), temperature source Tympanic, resp. rate 12, weight 99.4 kg (219 lb 3 oz). GENERAL: alert, healthy, and no distress EXTREMITIES: RLE - edema has worsened. Erythema extended up to knee. Small open area at distal 1/3 anterior lower leg. No purulent drainage. Hot to touch. LLE - edema, erythema at distal 2/3rds of lower leg. No open areas. No drainage. Hot to touch. A:Cellulitis of right lower leg (Primary) Pt sent to ER for possible admission for IV abxs. Any questions/problems, please call. If anything changes, worsens, develops new sx, please call [facility]. Follow Up: Return if symptoms worsen or fail to improve. Rubina Pak PA-C documented in this encounter Nursing Notes * Sharpless, Krissy L, STUDY ASSISTANT - 05/19/2023 8:10 AM EDT Recheck per Dr. GARG. States legs are worse. documented in this encounter Plan of Treatment Upcoming Encounters Date Type Department Care Team (Late st Contact Info) Description 07/13/2023 9:20 AM EDT Office Visit Family [address] [place] [phone] Josefina Guajardo MD [address] [place] [address] [place] [phone] Health Maintenance Due Date Last Done Comments DISCUSS TOBACCO CESSATION (REFER TO SMARTSET #[id number]) 1968 Depression Screening 1980 HIV Screening 05/11/1983 [...] Visit Diagnoses Diagnosis Cellulitis of right lower leg- Primary Cellulitis and abscess of leg, except foot documented in this encounter Care Teams Fig Washer Relationship Specialty Start Date End Date Josefina Guajardo MD [address] [place] [address] [place] [phone] PCP - General Family Medicine 12/18/22 documented as of this encounter
--- OUTSIDE RECORDS SUMMARY | 2023-05-20 04:30 | External Medical Summary | Summary of Care ---
Author Name Unknown Organization [facility] Address [address] [place] [address] Phone [phone] Care Team Providers Care Malted Milk Masher Name Role Phone Unavailable Primary Care Provider Unavailabl e Encounter Details Date Type Department Care Team (Late st Contact Info) Description 12/07/2022 Result Scan Unspecified Department <No scans attached> Allergies No known active allergiesdocumented as of this encounter (statuses as of 12/18/2022) Medications No known medicationsdocumented as of this encounter (statuses as of 12/18/2022) Active Problems Problem Noted Date Diagnosed Date ADVANCE DIRECTIVE INFORMATION 04/21/2005 Overview: No, Advance Directive brochure offered , patient declined. Tobacco use disorder 03/07/2003 documented as of this encounter (statuses as of 12/18/2022) Social History Tobacco Use Types Packs/Day Years Used Date Smoking Tobacco: Every Day Cigarettes 1 10 Alcohol Use Standard Drinks/Week Comments Yes 0 (1 standard drink = 0.6 oz pur e alcohol) Sex and Gender Information Value Date Recorded Sex Assigned at Not on file Gender Identity Not on file Sexual Orientation Not on file documented as of this encounter Plan of Treatment Upcoming Encounters Date Type Department Care Team (Late st Contact Info) Description 12/18/2022 12:40 PM EDT Office Visit Family Medicine [address] [place] [phone] Josefina Guajardo MD [address] [place] [address] [place] [phone] Health Maintenance Due Date Last Done Comments Hepatitis B (1 of 3 - 3-dose series) 1968 Lipid Panel 1968 COVID-19 Vaccine (#1) 1968 Pneumococcal Vaccine: Pediatrics (0 to 5 Years) and At-Risk Patients (6 to 64 Years) (1 - PCV) 1974 Depression Screening 1980 HIV Screening 05/11/1983 Hepatitis C Screening 1986 DTaP,Tdap,and Td Vaccines (1 - Tdap) 05/11/1987 HPV/Co-Test 1998 Mammogram 2008 05/18/2006 Cervical Cancer Screening 05/12/2009 Pap Smear 05/12/2009 05/12/2006, 04/16, 04/21/2005, Additional history exists Cologuard 2013 Colonoscopy 2013 Colorectal Cancer Screening 2013 Fecal Occult Blood Test 2013 Sigmoidoscopy 2013 Zoster Vaccines (1 of 2) 2018 Influenza Vaccine (FLU shot) (#1) 2022 GARDASIL-HPV IMMUNIZATION SERIES Aged Out No longer eligible based on patient's age to complete this topic MENINGOCOCCAL (MENACTRA/MENVEO) Aged Out No longer eligible based on patient's age to complete this topic documented as of this encounter Medical Devices Not on filedocumented as of this encounter Procedures Procedure Name Priority Date/Time Associated Diagnosis Comments OUTSIDE LAB RESULTS 12/11/2022 RADIOLOGY SCANNED RESULT 12/07/2022 RADIOLOGY SCANNED RESULT 12/07/2022 RADIOLOGY SCANNED RESULT 12/07/2022 RADIOLOGY SCANNED RESULT 12/07/2022 documented in this encounter Results * OUTSIDE LAB RESULTS (12/11/2022) 12/11/2022 No Physician Data Unknown LABORATORY * RADIOLOGY SCANNED RESULT (12/07/2022) 12/07/2022 No Physician Data Unknown DI[facility]ST[facility] RAD [facility]OLOG[facility] * RADIOLOGY SCANNED RESULT (12/07/2022) 12/07/2022 No Physician Data Unknown DIAGNOSTIC RAD [facility]OLOG[facility] * RADIOLOGY SCANNED RESULT (12/07/2022) 12/07/2022 No Physician Data Unknown DIAGNOSTIC RAD [facility]OLOGY [facility] * RADIOLOGY SCANNED RESULT (12/07/2022) 12/07/2022 No Physician Data Unknown [facility] RAD [facility] documented in this encounter
--- OUTSIDE RECORDS SUMMARY | 2023-05-20 04:30 | External Medical Summary | Summary of Care ---
Author Name Unknown Organization [facility] Address [address] [place] [address] Phone [phone] Care Team Providers Care Pot Room Tapper Name Role Phone Josefina Guajardo MD Primary Care Prov ider Reason for Visit * Reason Onset Date Comments Scan To Read 01/26/2023 DM eye exam Encounter Details Date Type Department Care Team (Late st Contact Info) Description 01/26/2023 Telephone Family Medicine [address] [phone] Josefina Guajardo MD [address] [place] [id number] Scan To Read (DM eye exam) Allergies No known active allergiesdocumented as of this encounter (statuses as of 01/27/2023) Medications Medication Sig Dispensed Refills Start Date [...] of this encounter (statuses as of 01/27/2023) Immunizations Name Administration Dates Next Due Pneumococcal [...] encounter Miscellaneous Notes * Telephone Encounter - Mina Fuentes MD - 01/26/2023 5:07 PM EST Retinal Scan Imaging Rema Styles [id number] Retinal Scan Interpretation: There is no retinopathy in both eyes Diabetes Retinal Imaging Care Plan: The retinal scan results are normal - I will forward this encounter to the Ophthalmology DM Letter Pool [[id number]], they will send a normal retinal scan letter to the patient, and the patient will be seen back for a yearly scan. Mina Fuentes MD 01/26/2023 5:07 PM * Telephone Encounter - Naomi Pacheco LPN - 01/26/2023 2:50 PM EST A Diabetic Telemed Eye image was taken and requires your interpretation for Dr Shayne Ross MD. Please check your inbasket for image. Patient prefers to be seen at [facility] if a follow-up appointment is needed. documented in this encounter Plan of Treatment Upcoming Encounters Date Type Department Care Team (Late st Contact Info) Description 06/16/2023 3:00 PM EDT Office Visit Family Medicine [address] [phone] Josefina Guajardo MD [address] [place] [address] [place] [phone] Health Maintenance Due Date Last Done Comments DISCUSS TOBACCO CESSATION (REFER TO SMARTSET #[id number]) 1968 Hepatitis B (1 of 3 - [...] filedocumented as of this encounter Care Teams Pot Room Tapper Relationship Specialty Start Date End Date Josefina Guajardo MD [address] [place] [address] [place] [phone] PCP - General Family Medicine 12/18/22 documented as of this encounter
--- OUTSIDE RECORDS SUMMARY | 2023-05-20 04:30 | External Medical Summary | Summary of Care ---
Author Name Unknown Organization [facility] Address [address] [place] [address] Phone [phone] Care Team Providers Care Program Writer Name Role Phone Josefina Guajardo MD Primary Care Prov ider Reason for Visit * Reason Onset Date Comments Hospital Follow-Up Medication Administration 12/18/2022 Flu an d/or Pneumo Inj Hospital Follow-Up 12/18/2022 Encounter Details Date Type Department Care Team (Latest Contact Info) Description 12/18/2022 12:40 PM EDT Office Visit Family Medicine [address] [phone] Josefina Guajardo MD [address] [place] [address] [place] [address] Hospital discharge follow-up*; Need for prophylactic vaccination and inoculation against influenza; ASCVD (arteriosclerotic cardiovascular disease); Type 2 diabetes mellitus with hemoglobin A1c goal of less than 7.0% ([facility]); Lower leg DVT (deep venous thromboembolism), acute, right ([facility]); Cellulitis of left lower extremity; Cellulitis of right lower extremity; Pseudomonas infection; MSSA infection, non-invasive Allergies No known active allergiesdocumented as of [...] 180 days 1 Each 1 12/18/2022 Active Fzkwusv-Yzcbtz-Mxlto Pertussis 5-2.5-18.5 LF-MCG/0.5 Suspension Prefilled Syringe (Boostrix)Indications [...] Sign Reading Time Taken Comments Blood Pressure 114/68 12/18/2022 1:40 PM EDT Pulse 96 12/18/2022 1:40 PM EDT Temperature 36.2 C (97.2 F) 12/18/2022 1:40 PM ED T Respiratory Rate - - Oxygen Saturation 97% 12/18/2022 1:40 PM EDT Inhaled Oxygen Concentration - - Weight 93.4 kg (205 lb 14.4 oz) 12/18/2022 1:40 PM EDT Height 162.6 cm (5' 4") 12/18/2022 1:40 PM EDT Body Mass Index 35.34 12/18/2022 1:40 PM EDT documented in this encounter Progress Notes * Shayne Ross, Josefina Emerson MD - 12/18/2022 1:51 PM EDT SUBJECTIVE: Rema Styles is a 52 year old female. Chief Complaint Patient presents with Hospital Follow-Up Medication Administration Flu and/or Pneumo Inj Hospital Follow-Up Recent Admission: Patient was recently admitted to [facility]. The date of discharge was 12/11/22. Discharge report received and reviewed. HPI: [facility] follow up Date adm:12/07/22 Date Discharged:12/11/2022 Dx: Cellulitis Con Lower leg - culture positive for pseudomonas and MSSA DVT Type 2 diabetes Tx with Cipro and Eliquis Ref to Wound care Pt doing wound care at home to con lower legs (wash daily and dry, left lower leg cover with aquacel AG, abd, secure with kerlix and right lower leg wound care aquacel AG on wounds and between toes with xeroform. Change dressings every other day Start wound clinic on 12/22/22 in [facility] home health nursing come in to help patient TODAY: -Cellulitis legs. Treated with Cipro x 3 days post discharge. After completing the antibiotics, feels her right leg has become more swollen. Denies fevers or chills, does have drainage. She is changing dressings with help of home health. -DVT. Right popliteal. Started on Eliquis. -Type2 DM. A1C in hospital 6.6. New dx. -Smoking. Tobacco use. Patient Active Problem List Diagnosis Code Tobacco use disorder F17.200 ADVANCE DIRECTIVE INFORMATION Lower leg DVT (deep venous thromboembolism), acute, right ([facility]) I82.4Z1 Type 2 diabetes mellitus with hemoglobin A1c goal of less than 7.0% ([facility]) E11.9 ASCVD (arteriosclerotic cardiovascular disease) I25.10 Current Outpatient Medications Medication Sig Dispense Refill Venlafaxine HCl ER 150 MG Oral Capsule Extended Release 24 Hour (Effexor XR) 1 Capsule. Apixaban Starter Pack 5 MG Oral Tablet Therapy Pack (Eliquis) 5 mg. Buprenorphine HCl-Naloxone HCl 8-2 MG Sublingual Tablet Sublingual (Suboxone) 1 Tablet. Zoster Vac Recomb Adjuvanted 50 MCG/0.5ML Intramuscular Suspension Reconstituted (Shingrix) Inject 0.5 mL into a large muscle now and repeat dose in 60 to 180 days 1 Each 1 Cwcjddh-Hlfiwa-Yrxjh Pertussis 5-2.5-18.5 LF-MCG/0.5 Suspension Prefilled Syringe (Boostrix) Inject0.5 mL into a large muscle once for 1 dose. As directed 0.5 mL 0 metFORMIN HCl ER 500 MG Oral Tablet Extended Release 24 Hour (Glucophage XR) Take 1 Tablet by mouthin the morning. 90 Tablet 3 Atorvastatin Calcium 10 MG Oral Tablet (Lipitor) Take 1 Tablet by mouth in the morning. 30 Tablet 5 No current facility-administered medications for this visit. Current and discharge medications have been reconciled. Review of patient's allergies indicates: No Known Allergies OBJECTIVE: BP 114/68 | Pulse 96 | Temp 36.2 C (97.2 F) (Tympanic) | Ht 1.626 m (5' 4") | Wt 93.4 kg (205 lb 14.4 oz) | SpO2 97% | BMI 35.34 kg/m | BSA 2.05 m REVIEW OF SYSTEMS: PHYSICAL EXAM: BP 114/68 | Pulse 96 | Temp 36.2 C (97.2 F) (Tympanic) | Ht 1.626 m (5' 4") | Wt 93.4 kg (205 lb 14.4 oz) | SpO2 97% | BMI 35.34 kg/m | BSA 2.05 m Physical Exam Constitutional: Appearance: Normal appearance. Cardiovascular: Rate and Rhythm: Normal rate and regular rhythm. Pulses: Normal pulses. Heart sounds: Normal heart sounds. Pulmonary: Effort: Pulmonary effort is normal. Breath sounds: Normal breath sounds. Musculoskeletal: General: Swelling present. Skin: Findings: Rash present. Comments: Bilat LE with clean dressings, large areas to anterior shins with erythematous warmrashes. Right calf swollen and tender. Neurological: Mental Status: She is alert. ASSESSMENT: Hospital discharge follow-up (Primary) - DISCH MED RECON CUR MED LIS Need for prophylactic vaccination and inoculation against influenza - INFLUENZA VACC, QUAD, PF, 6 MONTHS & UP, 0.5 ML, IM - Zoster Vac Recomb Adjuvanted 50 MCG/0.5ML Intramuscular Suspension Reconstituted (Shingrix); Inject 0.5 mL into a large muscle now and repeat dose in 60 to 180 days - Ievfuax-Lidaju-Eumsc Pertussis 5-2.5-18.5 LF-MCG/0.5 Suspension Prefilled Syringe (Boostrix); Inject 0.5 mL into a large muscle once for 1 dose. As directed ASCVD (arteriosclerotic cardiovascular disease) - LIPID PANEL WITH DIRECT LDL IF TG IS HIGH; Future; Expected date: 12/18/2022 - Atorvastatin Calcium 10 MG Oral Tablet (Lipitor); Take 1 Tablet by mouth in the morning. Type 2 diabetes mellitus with hemoglobin A1c goal of less than 7.0% ([facility]) - metFORMIN HCl ER 500 MG Oral Tablet Extended Release 24 Hour (Glucophage XR); Take 1 Tablet by mouth in the morning. - HEMOGLOBIN A1C; Future; Expected date: 12/18/2022 - BASIC METABOLIC PANEL; Future; Expected date: 12/18/2022 Lower leg DVT (deep venous thromboembolism), acute, right (HCC) Cellulitis of left lower extremity Cellulitis of right lower extremity Pseudomonas infection MSSA infection, non-invasive Follow Up: Return in about 1 week (around 12/25/2022) for Return with Physician, Clinic Visit. | For: Return with Physician, Clinic Visit PLAN: Restart cipro due to increased swelling and evidence of redness/ warmth of her legs right worse than left STart metformin and lipitor Follow up in 2 weeks Keep appt with wound clinic 12/22/22 Encourage tobacco cessation Follow up in 1 month(s). Josefina Lewis MD documented in this encounter Nursing Notes * Naomi Pacheco LPN - 12/18/2022 1:29 PM EDT Chief Complaint Patient presents with Hospital Follow-Up [facility] follow up Date adm:12/07/22 Date Discharged:12/11/2022 Dx: Cellulitis Con Lower leg DVT Type 2 diabetes Tx with Cipro and Eliquis Ref to Wound care Pt doing wound care at home to con lower legs (wash daily and dry, left lower leg cover with aquacel AG, abd, secure with kerlix and right lower leg wound care aquacel AG on wounds and between toes with xeroform. Change dressings every other day Start wound clinic on 12/22/22 in [facility] nursing come in to help patient The patient has been properly identified by confirmation of name and date of . documented in this encounter Plan of Treatment Upcoming Encounters Date Type Department Care Team (Late st Contact Info) Description 12/25/2022 1:40 PM EST Office Visit Family Medicine [address] [place] [phone] Josefina Guajardo MD [address] [place] [address] [place] [phone] Pending Results Name Type Priority Associated Diagnoses Date /Time LIPID PANEL WITH DIRECT LDL IF TG IS HIGH Lab Routine ASCVD (arteriosclerotic cardiovascular disease) 12/18/2022 2:12 PM EDT HEMOGLOBIN A1C Lab Routine Type 2 diabetes mellitus with hemoglobin A1c goal of less than 7.0% (HCC) 12/18/2022 2:12 PM EDT BASIC METABOLIC PANEL [...] right lower extremity 12/18/2022 2:12 PM EDT Scheduled Orders Name Type Priority Associated Diagnoses Orde r Schedule LIPID PANEL WITH DIRECT LDL IF TG IS HIGH Lab Routine ASCVD (arteriosclerotic cardiovascular disease) Expected: 12/18/2022, Expires: 12/19/2023 HEMOGLOBIN A1C Lab Routine Type 2 diabetes mellitus with hemoglobin A1c goal of less than 7.0% (HCC) Expected: 12/18/2022 (Approximate), Expires: 12/18/2023 BASIC METABOLIC PANEL Lab Routine Type 2 diabetes mellitus with hemoglobin A1c goal of less than 7.0% (HCC) Expected: 12/18/2022 (Approximate), Expires: 12/18/2023 CRP (INFLAMMATORY MARKER) Lab Routine Cellulitis of left lower extremity Cellulitis of right lower extremity Expected: 12/18/2022 (Approximate), Expires: 12/18/2023 CBC WITH WBC DIFFERENTIAL Lab Routine Cellulitis of left lower extremity Cellulitis of right lower extremity Expected: 12/18/2022 (Approximate), Expires: 12/19/2023 Health Maintenance Due Date Last Done Comments DISCUSS TOBACCO CESSATION (REFER TO SMARTSET #[id number]) 1970 Hepatitis B (1 of 3 - [...] as of this encounter Visit Diagnoses Diagnosis Hospital discharge follow-up- Primary Other follow-up examination Need for prophylactic vaccination and inoculation against influenza ASCVD (arteriosclerotic cardiovascular disease) Unspecified cardiovascular disease Type 2 diabetes mellitus with hemoglobin A1c goal of less than 7.0% (HCC) Lower leg DVT (deep venous thromboembolism), acute, right (HCC) Cellulitis of left lower extremity Cellulitis and abscess of leg, except foot Cellulitis of right lower extremity Cellulitis and abscess of leg, except foot Pseudomonas infection Pseudomonas infection in conditions classified elsewhere and of unspecified site MSSA infection, non-invasive Methicillin susceptible Staphylococcus aureus in conditions classified elsewhere and of unspecified site documented in this encounter Care Teams Program Writer Relationship Specialty Start Date End Date Josefina Guajardo MD [address] [place] [address] [place] [phone] PCP - General Family Medicine 12/18/22 documented as of this encounter
--- OUTSIDE RECORDS SUMMARY | 2023-05-20 04:30 | External Medical Summary | Summary of Care ---
Author Name Unknown Organization [facility] Address [address] [place] [address] Phone [phone] Care Team Providers Care Craniologist Name Role Phone Josefina Guajardo MD Primary Care Prov ider Reason for Visit * Reason Comments Follow Up 1 wk f/u Encounter Details Date Type Department Care Team (Late st Contact Info) Description 12/25/2022 1:40 PM EST Office Visit Family Medicine [address] [phone] Josefina Guajardo MD [address] [place] [id number] Cellulitis of right lower extremity*; Cellulitis of left lower extremity; Pseudomonas infection; Opioid dependence, in remission (HCC) Allergies No known active allergiesdocumented as of [...] Sign Reading Time Taken Comments Blood Pressure 110/68 12/25/2022 1:47 PM EST Pulse 102 12/25/2022 1:47 PM EST Temperature 36 C (96.8 F) 12/25/2022 1:47 PM EST Respiratory Rate - - Oxygen Saturation 98% 12/25/2022 1:47 PM EST Inhaled Oxygen Concentration - - Weight 91.2 kg (201 lb) 12/25/2022 1:47 PM EST Height - - Body Mass Index 34.5 12/18/2022 1:40 PM EDT documented in this encounter Progress Notes * Josefina Guajardo MD - 12/25/2022 1:54 PM EST Subjective Rema Styles is a 52 year old female. Chief Complaint Patient presents with Follow Up 1 wk f/u HPI: Follow up bilat LE cellulitis with large wounds. Has established with wound clinic. Doing daily aquacel ag. Has started metformin and lipitor. Taking cipro and wounds appear to be improving. Denies fevers, chills, n/v/d. PMH: Patient Active Problem List Diagnosis Code Tobacco use disorder F17.200 ADVANCE DIRECTIVE INFORMATION Lower leg DVT (deep venous thromboembolism), acute, right ([facility]) I82.4Z1 Type 2 diabetes mellitus with hemoglobin A1c goal of less than 7.0% ([facility]) E11.9 ASCVD (arteriosclerotic cardiovascular disease) I25.10 Opioid dependence, in remission ([facility]) F11.21 Current Outpatient Medications Medication Sig Dispense [...] mouth in the morning. 30 Tablet 5 Ciprofloxacin HCl 500 MG Oral Tablet (Cipro) Take 1 Tablet by mouth in the morning and 1 Tablet before bedtime. Do all this for 14 days. 28 Tablet 0 No current facility-administered medications for this visit. Review of patient's allergies indicates: No Known Allergies Objective BP 110/68 | Pulse 102 | Temp 36 C (96.8 F) (Tympanic) | Wt 91.2 kg (201 lb) | SpO2 98% | BMI 34.50 kg/m | BSA 2.03 m Bilat LE with dressing wraps that are clean and dry; right calf larger than left (h/o DVT) ASSESSMENT/PLAN: Cellulitis of right lower extremity (Primary) Cellulitis of left lower extremity Pseudomonas infection Opioid dependence, in remission (HCC) Continue antibiotics and wound care Follow up in 1 month Follow Up: Return in about 4 weeks (around 01/22/2023) for Return with Physician, Clinic Visit. | For: Return with Physician, Clinic Visit Josefina Lewis MD documented in this encounter Nursing Notes * Naomi Pacheco LPN - 12/25/2022 1:45 PM EST Chief Complaint Patient presents with Follow Up 1 wk f/u No issues today She is Not going to see [place] [facility]. She is going to stay established with [facility] The patient has been properly identified by confirmation of name and date of . documented in this encounter Plan of Treatment Upcoming Encounters Date Type Department Care Team (Late st Contact Info) Description 01/26/2023 2:00 PM EST Office Visit Family Medicine [address] [place] [phone] Josefina Guajardo MD [address] [place] [address] JEAN Fuller [phone] Health Maintenance Due Date Last Done Comments DISCUSS TOBACCO CESSATION (REFER TO [employer]ART[employer] #[id number]) 1970 Hepatitis B (1 of 3 - [...] conditions classified elsewhere and of unspecified site Opioid dependence, in remission (HCC) documented in this encounter Care Teams Craniologist Relationship Specialty Start Date End Date Josefina Guajardo MD [address] [place] [address] [place] [phone] PCP - General Family Medicine 12/18/22 documented as of this encounter"
--- OUTSIDE RECORDS SUMMARY | 2023-05-20 04:31 | External Medical Summary ---
Author Name Unknown Address Unknown Organization [id number][place] [place] [address] [facility] [address] Laboratory Report Ordering Provider Test Date Status BOYHIEU CARSON 12/18/2022 14:12:56 Final Observation Date Value Abnormality Reference (Units ) Status HbA1C 12/18/2022 14:12:56 6.1 Above high normal 4. 0-5.6 (%) Final The use of HbA1c to monitor glycemic status is based on normal hemoglobin and HbA composition. This test should not be used in patients with abnormal hemoglobin that affects the half life of the red blood cell or the in vivo glycation rates. Glucose, estimated average 12/18/2022 14:12:56 128 Above high normal <126 (mg/dL) Jose Miguel billy Performing Location [facility] [place] [address] [facility] [address]
--- OUTSIDE RECORDS SUMMARY | 2023-05-20 04:31 | External Medical Summary ---
Author Name Unknown Address Unknown Organization [id number]:[facility] [place] [address] [facility] [address] Laboratory Report Ordering Provider Test Date Status HIEU BRUNSON 12/18/2022 14:12:56 Final Observation Date Value Abnormality Reference (Units ) Status SYNC LEUKOCYTES IN BLOOD BY AUTOMATED COUNT 12/18/2022 14:12:56 6.33 4.00-10.80 (K/uL) Final Segs 12/18/2022 14:12:56 40.2 40.0-75.0 (%) Final Lymphs % 12/18/2022 14:12:56 45.5 Above high normal 18.0-42.0 (%) Final Monos 12/18/2022 14:12:56 10.1 1.0-11.0 (%) Final Eosinophils 12/18/2022 14:12:56 3.0 0.0-6.0 (%) Final Basos 12/18/2022 14:12:56 0.9 0.0-2.0 (%) Final Immature Granulocyte, Percent 12/18/2022 14:12:56 0.3 0.0-2.0 (%) Final Absolute Segs 12/18/2022 14:12:56 2.54 1.80-7.70 (K/uL) Final Lymphs, absolute 12/18/2022 14:12:56 2.88 1.00-4.80 (K/ul) Final Monos, Abs 12/18/2022 14:12:56 0.64 0.00-1.10 (K/uL) Final Eos, Abs 12/18/2022 14:12:56 0.19 0.00-0.70 (K/uL) Final Basos, Abs 12/18/2022 14:12:56 0.06 0.00-0.20 (K/uL) Final Immature Granulocytes, Number 12/18/2022 14:12:56 0.02 0.00-0.20 (K/uL) Final Performing Location [facility] [place] - [facility] [place] [address]
--- OUTSIDE RECORDS SUMMARY | 2023-05-20 04:31 | External Medical Summary | Summary of Care ---
Author Name Unknown Organization [facility] Address [address] [place] [address] Phone [phone] Care Team Providers Care Per Diem Physical Therapist Assistant Name Role Phone Unavailable Primary Care Provider Unavailabl e Reason for Visit * Reason Onset Date Comments Hospital Follow-Up 12/17/2022 Encounter Details Date Type Department Care Team (Late st Contact Info) Description 12/17/2022 Telephone Ancillary [facility] [place] [address] [place], [place] [phone] Maude Zuniga, DWAYNE Hospital Follow-Up Allergies No known active allergiesdocumented as of this encounter (statuses as of 12/17/2022) Medications No known medicationsdocumented as of this encounter (statuses as of 12/17/2022) Active Problems Problem Noted Date Diagnosed Date ADVANCE DIRECTIVE INFORMATION 04/21/2005 Overview: No, Advance Directive brochure offered , patient declined. Tobacco use disorder 03/07/2003 documented as of this encounter (statuses as of 12/17/2022) Social History Tobacco Use Types Packs/Day Years [...] encounter Miscellaneous Notes * Telephone Encounter - Maude Zuniga RN - 12/17/2022 10:40 AM EDT Transitions of Care Note Reason for Referral:Recent Admission Phone visit for follow up: OLGA LIDIA Admitted to: [facility], Date: 12/07/2022 Discharged to: Home with [facility], Date: 12/11/2022 Diagnosis driving hospitalization: Bilateral cellulitis of lower legs DVT Type 2 Diabetes Source/Contact: Patient SUBJECTIVE Consent: Verbal consent for review of hospital discharge: Yes REVIEW OF SYSTEMS Patient/Other Reports: Current patient/caregiver problems or concerns: No concerns CV: Denies problems Pulmonary: Denies problems Chills/Sweats/Fever:Denies chills/sweats Denies fever Appetite:Denies problems such as nausea, vomiting, burning, decreased appetite Current diet: Carb consistant Bowel: denies problems Bladder: denies problems Wound (If applicable): Site-R leg and L leg, Drainage-decreased, Odor-None, and Washing daily with soap and water, patting dry. Covering with Aquacel AG, ABD, and Kerlix Pain:Discomfort while changing bandages Sleep:Denies problems FUNCTIONAL STATUS: ADL'S: Needs Assistance With:N/A as pt is independent IADL'S: Needs Assistance With:N/A as pt is independent Cognitive and Mental Health: denies problems, alert and oriented x 3, and able to communicate, understand instructions, process information. MEDICATION RECONCILIATION Medications: New medication(s) filled since hospitalization- Elequis- reminded patient to avoid NSAIDS such as Motrin Ibuprofen, Naprosyn and Asprin She has finished her Cipro Reports all medications taken as prescribed. ASSESSMENT Medication Risk Assessment: No risks identified Did patient fail outpatient treatment? No Discharge instructions available for review? Yes PLAN Symptom Monitoring Interventions:Member/caregiver education - signs and symptoms to contact PrimaryCare (DO NOT DELETE-Three lomeli symptoms patient is to report to PCP) 1. Increased drainage from wounds 2. Cough, SOB 3. Fever, chills Latin American Studies ProfessorJewish Thought Professor of Care interventions/Action Plan: 5 - 7 day follow-up with PCP in place - Date: Dr. Lewis 12/18 at 1240 Educated on role of OLGA LIDIA completed with patient/caregiver. Educated patient/caregiver on patient right to have input on OLGA LIDIA plan of care. Verification of Home Health/DME if indicated: YES Home Health by [facility] Identified Care Gaps: Yes Care Gaps closed this call: Appointment made or confirmed and Transition of Care follow-up communication Re-evaluation of Plan of Care and progress towards goals achievement: Patient education this visit: Verbal, Discussed importance of avoiding NSAIDS Plan to discharge needs met, verbalizes understanding and agrees with plan. Maude Negron, RN documented in this encounter Plan of Treatment Upcoming Encounters Date Type Department Care Team (Late st Contact Info) Description 12/18/2022 12:40 PM EDT Office Visit Family Medicine [address] [place] [phone] Josefina Guajardo MD [address] [place] [address] JE[place] Fuller [address] Health Maintenance Due Date [...]
--- OUTSIDE RECORDS SUMMARY | 2023-05-20 04:31 | External Medical Summary ---
Author Name Unknown Address Unknown Organization [id number]:[facility] [place] - [address] [place] [address] Laboratory Report Ordering Provider Test Date Status HIEU BRUNSON 12/18/2022 14:12:56 Final Observation Date Value Abnormality Reference (Units ) Status CRP, low-sensitivity 12/18/2022 14:12:56 25 Above high normal <=5 (mg/L) Final Performing Location [facility] [place] - [address] [place] [address]
--- OUTSIDE RECORDS SUMMARY | 2023-05-20 04:31 | External Medical Summary ---
Author Name Unknown Address Unknown Organization K01:[facility] [place] [facility] [address] [facility] [address] Laboratory Report Ordering Provider Test Date Status HIEU BRUNSON 12/18/2022 14:12:56 Final Observation Date Value Abnormality Reference (Units ) Status WBC, Total 12/18/2022 14:12:56 6.33 4.00-10.80 (K/uL) Final RBC 12/18/2022 14:12:56 4.15 3.85-5.15 (M/uL) Final Hemoglobin 12/18/2022 14:12:56 11.3 Below low normal 12.0-15.3 (g/dL) Final HCT 12/18/2022 14:12:56 38.8 36.0-45.2 (%) Final MCV 12/18/2022 14:12:56 93.5 81.5-97.5 (fL) Final MCH 12/18/2022 14:12:56 27.2 27.0-34.0 (pg) Final MCHC 12/18/2022 14:12:56 29.1 32.0-36.0 (g/dL) Final RDW 12/18/2022 14:12:56 15.7 11.5-15.5 (%) Final Platelets 12/18/2022 14:12:56 652 Above high normal 140-400 (K/uL) Final MPV 12/18/2022 14:12:56 9.5 6.6-11.1 (fL) Final Nucleated erythrocytes/100 leukocytes [Ratio] in Blood by Automated count 12/18/2022 14:12:56 0 <=0 (/100 WBCs) Final Performing Location [facility] [place] [address] [place] [address]
--- OUTSIDE RECORDS SUMMARY | 2023-05-20 04:31 | External Medical Summary | Summary of Care ---
Author Name Unknown Organization [facility] Address [address] [place] [address] Phone [phone] Care Team Providers Care Gas Engine Operator Generators Name Role Phone Unavailable Primary Care Provider Unavailabl e Encounter Details Date Type Department Care Team (Late Contact Info) Description 12/18/2022 Orders Only [address] [place] [phone] Josefina Guajardo MD [address] [place] [address] JE[place] Fuller [phone] Allergies No known active allergiesdocumented as of [...] Encounters Date Type Department Care Team (Late Contact Info) Description 12/18/2022 12:40 PM EDT Office Visit Family Medicine [address] [place] [phone] Josefina Guajardo MD [address] [place] [address] [place] [phone] Health Maintenance Due Date Last Done Comments [...] Procedure Name Priority Date/Time Associated Diagnosis Comments CHEMISTRY-OUTSIDE Routine 12/11/2022 CHEMISTRY-OUTSIDE Routine 12/10/2022 XR CHEST 1 VIEW Routine 12/07/2022 HEMOGLOBIN A1C Routine 12/07/2022 TSH Routine 12/07/2022 documented in this encounter Results * (ABNORMAL) CHEMISTRY-OUTSIDE (12/11/2022) Not all results display below - see scan for full detail OUTSIDE LAB (SEE SCANNED REPORT) Comment:SCAN INCLUDES - INPT LABS: CBCD CREATININE-OUTSID E LAB OUTSIDE LAB (SEE SCANNED REPORT) EGFR-OUTSIDE LAB OUT SIDE LAB (SEE SCANNED REPORT) POTASSIUM-OUTSIDE LAB OUTSIDE LAB (SEE SCANNED REPORT) GLUCOSE-OUTSIDE LAB OUTSIDE LAB (SEE SCANNED REPORT) HOURS FASTING OUTSID E LAB (SEE SCANNED REPORT) TRIGLYCERIDES-OUT SIDE LAB OUTSIDE LAB (SEE SCANNED REPORT) CHOLESTEROL-OUTSI DE LAB OUTSIDE LAB (SEE SCANNED REPORT) HDL-OUTSIDE LAB OUTS DIANNA LAB (SEE SCANNED REPORT) CHOL/HDL RATIO-OUTSIDE LAB OUTSIDE LA B (SEE SCANNED REPORT) LDL (CALCULATED)-OUTS DIANNA LAB OUTSIDE LAB (SEE SCANNED REPORT) LDL (DIRECT MEASURE)-OUTSIDE LAB OUTSIDE LAB (SEE SCANNED REPORT) HEMOGLOBIN, [id number] LAB OUTSIDE LAB (SEE SCANNED REPORT) PHOSPHORUS-OUTSID E LAB OUTSIDE LAB (SEE SCANNED REPORT) PTH-OUTSIDE LAB OUTS DIANNA LAB (SEE SCANNED REPORT) MICROALBUMIN RATIO-OUTSIDE LAB OUTSIDE LA B (SEE SCANNED REPORT) PROTEIN, UA-OUTSIDE LAB OUTSIDE LAB (SEE SCANNED REPORT) HEMOGLOBIN-OUTSID E LAB 9.9(A) 12.0 - 16.0 G/DL OUTSIDE LAB (SEE SCANNED REPORT) 12/11/2022 History Per Patient LABORATORY OUTSIDE LAB (SEE SCANNED REPORT) * (ABNORMAL) CHEMISTRY-OUTSIDE (12/10/2022) Not all results display below - see scan for full detail OUTSIDE LAB (SEE SCANNED REPORT) Comment:SCAN INCLUDES - INPT LABS: BMP CREATININE-OUTSID E LAB 0.67 0.6 - 1.2 MG/DL OUTSIDE LAB (SEE SCANNED REPORT) EGFR-OUTSIDE LAB 99.7 ML/MIN/1.7 3M2 OUTSIDE LAB (SEE SCANNED REPORT) POTASSIUM-OUTSIDE LAB 3.7 3.5 - 5.1 MMOL/L OUTSIDE LAB (SEE SCANNED REPORT) GLUCOSE-OUTSIDE LAB 107(A) 70 - 99 MG/DL OUTSIDE LAB (SEE SCANNED REPORT) HOURS FASTING OUTSID E LAB (SEE SCANNED REPORT) TRIGLYCERIDES-OUT SIDE LAB OUTSIDE LAB (SEE SCANNED REPORT) CHOLESTEROL-OUTSI DE LAB OUTSIDE LAB (SEE SCANNED REPORT) HDL-OUTSIDE LAB OUTS DIANNA LAB (SEE SCANNED REPORT) CHOL/HDL RATIO-OUTSIDE LAB OUTSIDE LA B (SEE SCANNED REPORT) LDL (CALCULATED)-OUTS DIANNA LAB OUTSIDE LAB (SEE SCANNED REPORT) LDL (DIRECT MEASURE)-OUTSIDE LAB OUTSIDE LAB (SEE SCANNED REPORT) HEMOGLOBIN, [id number] LAB OUTSIDE LAB (SEE SCANNED REPORT) PHOSPHORUS-OUTSID E LAB OUTSIDE LAB (SEE SCANNED REPORT) PTH-OUTSIDE LAB OUTS DIANNA LAB (SEE SCANNED REPORT) MICROALBUMIN RATIO-OUTSIDE LAB OUTSIDE LA B (SEE SCANNED REPORT) PROTEIN, UA-OUTSIDE LAB OUTSIDE LAB (SEE SCANNED REPORT) HEMOGLOBIN-OUTSID E LAB OUTSIDE LAB (SEE SCANNED REPORT) 12/10/2022 History Per Patient LABORATORY Performing Organization Address [facility] Phone Number OUTSIDE LAB (SEE SCANNED REPORT) * TSH (12/07/2022) TSH - OUTSIDE LAB 0.890 0.300 - 4.500 UIU/ML OUTSIDE LAB (SEE SCANNED REPORT) Blood Venous blood specimen / Unknown 12/07/2022 History Per Patient LAB BLOOD ORDERABLES Performing Organization Address [facility] de Phone Number OUTSIDE LAB (SEE SCANNED REPORT) * (ABNORMAL) HEMOGLOBIN A1C (12/07/2022) HEMOGLOBIN, [id number] LAB 6.6(A) 4.5 - 5.6 % OUTSIDE LAB (SEE SCANNED REPORT) Blood Venous blood specimen / Unknown 12/07/2022 History Per Patient LAB BLOOD ORDERABLES Performing Organization Address [facility] de Phone Number OUTSIDE LAB (SEE SCANNED REPORT) * XR CHEST 1 VIEW (12/07/2022) Anatomical Region Laterality Modality Chest Other 12/07/2022 Ronan Turner MD RADIOLOGY (PRATIK GALLEGO) documented in this encounter
--- OUTSIDE RECORDS SUMMARY | 2023-05-20 04:31 | External Medical Summary | Summary of Care ---
Author Name Unknown Organization [facility] Address [address] [place] [address] Phone [phone] Care Team Providers Care Veneer Joiner Name Role Phone Unavailable Primary Care Provider Unavailabl e Reason for Visit * Reason Onset Date Comments Hospital Follow-Up 12/14/2022 Encounter Details Date Type Department Care Team (Late st Contact Info) Description 12/14/2022 Telephone Family Practice [facility] [address] [place], [place] [phone] Maude Zuniga, DWAYNE Hospital Follow-Up Allergies No known active allergiesdocumented as of this encounter (statuses as of 12/16/2022) Medications No known medicationsdocumented as of this encounter (statuses as of 12/16/2022) Active Problems Problem Noted Date Diagnosed Date ADVANCE DIRECTIVE INFORMATION 04/21/2005 Overview: No, Advance Directive brochure offered , patient declined. Tobacco use disorder 03/07/2003 documented as of this encounter (statuses as of 12/16/2022) Social History Tobacco Use Types Packs/Day Years [...] Telephone Encounter - Maude Zuniga RN - 12/15/2022 9:28 AM EDT Transitions of Care Note Reason for Referral:Recent Admission Phone visit for follow up: OLGA LIDIA # 2 Called and left message for patient asking her to call back to discuss hospitalization, medications and follow up. * Telephone Encounter - Maude Zuniga RN - 12/14/2022 11:11 AM EDT Transitions of Care Note Reason for Referral:Recent Admission Phone visit for follow up: OLGA LIDIA # 1 called and left message asking patient to call back to discuss hospitalization, medications and follow up. Will attempt second call on 12/15/2022 Admitted to: [facility], Date: 12/07/22 Discharged to: Home with [facility], Date: 12/11/2022 Diagnosis driving hospitalization: Bilateral cellulitis of lower legs, DVT, Type 2 Diabetes documented in this encounter Plan of Treatment Upcoming Encounters Date Type Department Care Team (Late st Contact Info) Description 12/18/2022 12:40 PM EDT Office Visit Family Medicine [address] [phone] Josefina Guajardo MD [address] [place] [address] JE[place] [phone] Health Maintenance Due Date Last Done Comments [...]
--- OUTSIDE RECORDS SUMMARY | 2023-05-20 04:31 | External Medical Summary ---
Author Name Unknown Address Unknown Organization K01:LABORATORY [facility] [place] - [address] [place] [address] Laboratory Report Ordering Provider Test Date Status HIEU BRUNSON 12/18/2022 14:12:56 Final Observation Date Value Abnormality Reference (Units ) Status BUN 12/18/2022 14:12:56 15 6-20 (mg/dL) Final Creatinine 12/18/2022 14:12:56 0.6 0.5-1.0 (mg/dL) Final Glomerular filtration rate/1.73 sq M.predicted [Volume Rate/Area] in Serum, Plasma or Blood by Creatinine-based formula (CKD-EPI) 12/18/2022 14:12:56 >90 >=60 (mL/min) Final eGFR is calculated based on the CKD-EPI 2020 equation SODIUM 12/18/2022 14:12:56 141 135-146 (m mol/L) Final Potassium 12/18/2022 14:12:56 4.3 3.5-5.1 (m mol/L) Final Cl 12/18/2022 14:12:56 105 98-107 (mm ol/L) Final CO2 12/18/2022 14:12:56 27 22-32 (mmo l/L) Final Anion gap 12/18/2022 14:12:56 9 7-15 (mmol /L) Final Glucose 12/18/2022 14:12:56 89 70-120 (mg /dL) Final Calcium 12/18/2022 14:12:56 9.5 8.4-10.2 ( mg/dL) Final Performing Location LAB[facility]ATORY [facility] [place] - [address] [place] [address]
--- OUTSIDE RECORDS SUMMARY | 2023-05-20 04:31 | External Medical Summary ---
Author Name Unknown Address Unknown Organization K01[place] [place] [address] [place] [address] Laboratory Report Ordering Provider Test Date Status HIEU BRUNSON 12/18/2022 14:12:56 Final Observation Date Value Abnormality Reference (Units ) Status Triglyceride 12/18/2022 14:12:56 148 <=174 ( mg/dL) Final Triglyceride Reference Range s (mg/dL):
<150 Acceptable
150-174 Borderline high
175-499 High
>=500 Very high Cholesterol 12/18/2022 14:12:56 122 <200 (mg /dL) Final Total Cholesterol Reference Ranges (mg/dL):
<200 Desirable
200-239 Borderline high
>=240 High HDL 12/18/2022 14:12:56 27 Below low normal >49 (mg/dL) Final HDL Cholesterol Reference Ra nges (mg/dL):
>=60 High (Desirable)
<50 Low (Undesirable) For Females
<40 Low (Undesirable) For Males NON-HDL CHOLESTEROL 12/18/2022 14:12:56 95 <=159 (mg/dL) Final Non-HDL Cholesterol Referenc e Range (mg/dL):
<100 Target level for high risk ASCVD patient
<130 Optimal for general population
130-159 Near optimal for general population
160-189 Borderline High
190-219 High
>=220 Very High LDL, (calculated) 12/18/2022 14:12:56 65 <= 129 (mg/dL) Final LDL Cholesterol Reference Ra nges (mg/dL):
<70 Target level for high risk ASCVD patient
<100 Optimal for general population
100-129 Near optimal for general population
130-159 Borderline high
160-189 High
>=190 Very high Performing Location [facility] [place] [address] [facility] [address]
[2023-05-20] MEDS: PIPERACILLIN/TAZOBACTAM 4.5 GM in DEXTROSE 5% MINI-B 100 ML IV SCH (04:50)
[2023-05-20 07:43] LABS: Estimated Average Glucose 131 mg/dl; Hemoglobin A1C 6.2 % (4.5-5.6)
[2023-05-20] MEDS: VENLAFAXINE HCL XR 150 MG CAPXR PO SCH (09:13)
[2023-05-20] MEDS: MULTIVITAMIN TAB PO SCH (09:13)
--- NOTE | 2023-05-20 10:26 | Pharmacy Report ---
Pharmacy PK ABX Note - Date of Service May 20, 2023 - Assessment and Plan Assessment 53 year old F receiving VANCOMYCIN + ZOSYN for treatment of bilateral lower ext cellulitis failing outpatient ciprofloxacin. Pertinent microbiologic data includes: blood cx's pending Plan Vancomycin * Loading dose: 2000 mg IV x 1 * Maintenance dose: 1500 mg IV every 12 hours * Regimen is predicted to achieve target AUC/BERTRAND of 400-600 mg/L.hr * Level ordered for: 05/21/23 following 3rd maint dose Pharmacy will continue to follow and will adjust dose/frequency as necessary. Thank you. Pharmacy has transitioned to AUC monitoring for vancomycin. AUC/BERTRAND is the pre ferred PK/PD target and is associated with decreased risk of nephrotoxicity compared to traditional trough targets.
--- NOTE | 2023-05-20 14:13 | Hospitalist Progress Note ---
Date of Service May 20, 2023 Assessment & Plan (1) Bilateral cellulitis of lower leg: Plan Patient is a 53-year-old female with past medical history of DVT of right lower extremity on Eliquis, type 2 diabetes mellitus, hyperlipidemia who was referred by her primary care doctor due to bilateral lower extremity cellulitis after failing an outpatient antibiotic course of Ciprofloxacin. Bilateral lower extremity Cellulitis Patient presents with bilateral lower extremity edema which is gradually progressing. Similar presentation in November 2022. Wound culture at that time positive for MSSA and Pseudomonas No leukocytosis present Venous duplex shows a small amount of chronic appearing thrombus in right calf Blood cx x2 sets with NGTD Will try to obtain surface and deep wound Cx of RLE Continue on vancomycin and Zosyn Continue IV antibiotics till clinical improvement; transition to oral after improvement in symptoms Wound care consult Anemia, chronic Appears chronic down to 9 from 11 last year Anemia workup with iron panel, ferritin, b12 and folate Supplement as needed Chronic conditions History of DVTcontinue on Eliquis Hyperlipidemiacontinue on Lipitor Type 2 diabetes mellitushold home metformin; sliding scale insulin History of opioid dependence continue on buprenorphine Mood disordercontinue venlafaxine Diet: DMII DVT prophylaxis: Eliquis Dispo: PT/OT ordered Admission and Anticipated Discharge Date Admission Date: May 19, 2023 Subjective pt was seen while still down in the ED. States that she feels like lower extremity swelling and erythema is improving. Denied acute concerns. Review of Systems Review of Systems: All systems reviewed & are unremarkable except as noted in Subjective Physical Exam Physical Exam: General: Alert, oriented. No acute distress Skin: RLE with erythema and swelling >LLE Psych: Appropriate mood and affect Neuro: No gross deficits HEENT: NC/AT Chest: Nontender to palpation. CV: RRR Resp: Breath sounds clear bilaterally, no increased effort of breathing. Abdomen: Soft, nontender Extremities:RLE with erythema and swelling >LLE Results & Data Results & Data Vital Signs (Past 12 Hours) Vital Signs Temp Pulse Pulse Resp BP Pulse Ox O2 Del Method 05/20/23 12:40 81 16 105/57 L 93 Room Air 05/20/23 11:40 36.8 C 82 18 98/57 L 91 Room Air 05/20/23 07:14 85 05/20/23 04:00 78 16 118/68 94 Room Air
[2023-05-21 06:39] LABS: Basophils # (auto) 0.04 K/uL (0.00-0.20); Basophils % (auto) 0.7 %; Eosinophils # (auto) 0.14 K/uL (0.00-0.50); Eosinophils % (auto) 2.4 %; Hematocrit (blood only) 29.6 % (37.0-47.0); Hemoglobin 9.1 g/dl (12.0-16.0); Immature Granulocytes # (auto) 0.02 K/uL (0.01-0.20); Immature Granulocytes % (auto) 0.3 %; Lymphocytes # (auto) 2.86 K/uL (1.20-3.40); Lymphocytes % (auto) 48.7 %; Mean Corpuscular Hemoglobin 28.8 pg (25.0-34.0); Mean Corpuscular Hgb Conc 30.7 g/dL (32.0-36.0); Mean Corpuscular Volume 93.7 fL (80.0-100.0); Monocytes # (auto) 0.63 K/uL (0.11-0.59); Monocytes % (auto) 10.7 %; Neutrophils # (auto) 2.18 K/uL (1.40-6.50); Neutrophils % (auto) 37.2 %; Platelet Count 355 K/uL (130-400); RDW Standard Deviation 57.1 fL (36.4-46.3); Red Blood Count 3.16 M/uL (4.20-5.40); White Blood Count 5.87 K/ul (4.8-10.8)
[2023-05-21 06:54] LABS: BUN Creatinine Ratio 14.1 (10-20); Calcium 8.1 mg/dl (8.6-10.3); Creatinine Clr Calc Pharmacy 93.4 ml/min; Est GFR (African American) 99.2 ml/min; Est GFR (Non-African American) 85.6 ml/min; Magnesium 2.1 mg/dl (1.7-2.4); Phosphorus 4.1 mg/dl (2.5-4.9); Potassium 3.9 mmol/L (3.5-5.1)
[2023-05-21 07:12] LABS: Ferritin 62.6 ng/ml (8-388)
[2023-05-21 07:28] LABS: Vitamin B12 286 pg/ml (180-914)
[2023-05-21 07:29] LABS: Folate (Folic Acid),Ser orPlas > 22.30 ng/ml (>5.38)
[2023-05-21] MEDS: IRON SUCROSE 200 MG in 0.9 % SODIUM CHLORIDE 100 ML IV ONE (11:04)
--- NOTE | 2023-05-21 13:12 | Pharmacy Report ---
Pharmacy PK ABX Note - Date of Service May 21, 2023 - Assessment and Plan Assessment 53 year old F receiving VANCOMYCIN + ZOSYN for treatment of bilateral lower ext cellulitis failing outpatient ciprofloxacin. Pertinent microbiologic data includes: blood cx's - no growth to date SCr trending up slightly - continue to monitor Plan Vancomycin * Level drawn today following 3 maint doses (1500mg Q 12 hrs). Level was drawn ~9 hrs after 3rd dose. Level = 18.1mcg/mL. Will decrease dose as predicted AUC may exceed 600 mg/L.hr at steady-state. * *NEW* maintenance dose: 1250 mg IV every 12 hours * Regimen is predicted to achieve target AUC/BERTRAND of 400-600 mg/L.hr * Will recheck level in ~ 48 hrs if therapy to continue. Pharmacy will continue to follow and will adjust dose/frequency as necessary. Thank you. Pharmacy has transitioned to AUC monitoring for vancomycin. AUC/BERTRAND is the preferred PK/PD target and is associated with decreased risk of nephrotoxicity compared to traditional trough targets.
[2023-05-21] MEDS ORDERED: VANCOMYCIN HCL 1,250 MG in SODIUM CHLORIDE 0.9% 250 ML IV SCH (16:00)
--- NOTE | 2023-05-21 16:28 | Discharge Summary ---
Discharge Summary Date of Service May 21, 2023 Notes For Next Care Provider Please ensure resolution of cellulitis Please closely monitor kidney function, pt discharged with lasix for a week to help with lower extremity swelling. Consider extended use. Medication Changes From Visit Lasix 20mg daily for 1 week Doxycycline 100mg BID x 10 days Keflex 500mg QID x 10 days Admission HPI Per Admitting Provider History obtained from chart review and interview with the patient Last confinement in November 2022 with bilateral lower extremity cellulitis and DVT of right lower extremity Patient is a 53-year-old female with past medical history of DVT of right lower extremity on Eliquis, type 2 diabetes mellitus, hyperlipidemia, was referred to admission by her primary care doctor due to bilateral lower extremity cellulitis after failing outpatient antibiotic course(Ciprofloxacin). Patient was seen as outpatient for with increasing redness in bilateral lower extremity for which she was given ciprofloxacin. The swelling and redness continued to worsen in the last several days. She denies any fever, chills, chest pain, shortness of breath, abdominal pain or urinary symptoms. On presentation to the ED, she was afebrile, normotensive and saturating well on room air WBC did not reveal leukocytosis. BUN/creatinine within normal limits Venous duplex revealed small amount of chronic appearing thrombus in right calf within posterior tibial and peroneal veins. Patient was given vancomycin and was referred for admission. Admission Exam Per Admitting Provider Constitutional: Alert oriented x 3; not in distress. Respiratory: Bilateral risk at bedside Cardiovascular: RRR, no murmur, no edema Vessels: no JVD or carotid bruit Chest: normal inspection of chest Abdomen: normal bowel sounds, soft, nontender, no hepatosplenomegaly Musculoskeletal: Swelling present in bilateral lower extremity with warmth, erythema and tenderness; going up along the thigh Neurologic: PERRL, EOMI, accommodation nl, no face palsy, no dysarthria CN's II- XI intact bilaterally and moves all extremities Psychiatric: A+Ox3, euthymic affect Principal Dx & Hospital Course #1 = Principal Diagnosis (1) Bilateral cellulitis of lower leg: Plan Patient is a 53-year-old female with past medical history of DVT of right lower extremity on Eliquis, type 2 diabetes mellitus, hyperlipidemia who was referred by her primary care doctor due to bilateral lower extremity cellulitis after failing an outpatient antibiotic course of Ciprofloxacin. Bilateral lower extremity Cellulitis Lower extremity edema Patient presents with bilateral lower extremity edema which is gradually progressing. Similar presentation in November 2022. Wound culture at that time positive for MSSA and Pseudomonas No leukocytosis present currently Venous duplex shows a small amount of chronic appearing thrombus in right calf, on anticpagulation outpatient Blood cx x2 sets with NGTD No surface and deep wound Cx of RLE were able to be obtained Treated with IV vancomycin and Zosyn Discharged with po Doxycycline 100mg BID x 10 days and Keflex 500mg QID x 10 days Discharged with 7 days of po Lasix 20mg daily, to help with lower extremity swelling. Consider extended use. Please closely monitor kidney function while on Lasix. PCP follow up to ensure resolution of cellulitis Anemia, chronic Iron Deficiency Anemia Appears chronic down to 9 from 11 last year iron levels low, supplemented with IV Venofer B12 and folate levels wnl PCP follow up for continued H/H monitoring Chronic conditions History of DVTcontinue on Eliquis Hyperlipidemiacontinue on Lipitor Type 2 diabetes mellitusresume home metformin History of opioid dependence continue on buprenorphine Mood disordercontinue venlafaxine Discharge Exam General: Alert, oriented. No acute distress Skin: RLE with erythema and swelling >LLE, improved Psych: Appropriate mood and affect Neuro: No gross deficits HEENT: NC/AT Chest: Nontender to palpation. CV: RRR Resp: Breath sounds clear bilaterally, no increased effort of breathing. Abdomen: Soft, nontender Extremities:RLE with erythema and swelling >LLE Updated Medication List Medication Instructions Recorded Confirmed Type buprenorphine 8 mg-naloxone 2 mg 1 tab sublingual BID 12/07/22 05/19/23 History sublingual tablet multivitamin 1 tab PO QAM 12/07/22 05/19/23 History venlafaxine 150 mg 150 mg PO QAM 12/07/22 05/19/23 History capsule,extended release 24 hr metformin 500 mg tablet 500 mg PO DAILY 12/22/22 05/19/23 History apixaban 5 mg tablet (Eliquis) 5 mg PO BID 05/19/23 05/19/23 History atorvastatin 20 mg tablet 20 mg PO HS 05/19/23 05/19/23 History cephalexin 500 mg tablet 500 mg PO QID #40 tabs 05/21/23 Rx doxycycline hyclate 100 mg tablet 100 mg PO BID #20 tabs 05/21/23 Rx furosemide 20 mg tablet 20 mg PO DAILY #7 tabs 05/21/23 Rx Hospital Stay Data Consultations 05/19/23 19:31 ED Decision to Admit Stat Diagnostic Imagining Performed 05/19/23 14:40 US venous doppler LE BI Stat Venous Doppler Study 05/19/23 14:40 ULTRASOUND BILATERAL LOWER EXTREMITY VENOUS CLINICAL HISTORY: Lower extremity swelling and edema. COMPARISON STUDY: Bilateral lower extremity venous ultrasound dated 12/07/2022. TECHNIQUE: Real-time, grayscale, and color Doppler sonography of the deep veins of the right and left lower extremity was performed from the inguinal crease to the calf. Compression and augmentation were utilized. FINDINGS: There is no sonographic evidence of acute deep venous thrombosis identified in the right or left lower extremity. The common femoral, superficial femoral, and popliteal veins are patent and normally compressible bilaterally. The greater saphenous vein and the profunda femoris vein at the junction with the common femoral vein are clear in both legs. There is a small amount of chronic appearing thrombus within the right posterior tibial and peroneal veins. The visualized calf veins in the left leg are patent. A prominent left normal lymph node is likely reactive. Soft tissue edema is present in both legs. IMPRESSION: 1. There is no sonographic evidence of acute deep venous thrombosis identified in the right or left lower extremity. 2. There is a small amount of chronic appearing thrombus in the right calf within the posterior tibial and peroneal veins. ACT 112: Negative or not required by law. Electronically signed by: Jhonatan Dias M.D. 05/19/2023 4:32 PM Pending Results Patient Have Any Pending Studies at Discharge: No Discharge Instructions Given to Patient (Per Discharging Provider) Rema, You were treated with two IV antibiotics for your infection in your legs, right greater than left. We are discharging you with 2 antibiotics to take by mouth to help with that for another 10 days. Please be sure to take it as prescribed. We are also discharging you with the medication lasix as we discussed, at a low dose to help with the swelling. Please discuss this further with your primary care provider and keep close follow up to ensure that your kidney function remains within an acceptable range. Again, please keep close follow up with your primary care provider after discharge. Please do not hesitate to come back to the emergency room if your symptoms worsen or return. It was a pleasure taking care of you while you were here. Total Time Total Time Spent Total Time Spent (In Minutes): > 30 minutes
== END 2023-05-21 17:50 | disposition home or self-care (01) | DRG 603 ==
LOC: ED 14:22 → EDINP 19:52 → SUATTDRO 19:52 → 2N 05-20 17:16